=== PATIENT | female | born 1965 ===

== ENCOUNTER 2020-07-07 16:03 | Outpatient (REF) | payer OTHER, SELFPAY ==
[2020-07-07 16:41] LABS: MANUAL DIFF FLAG NO
[2020-07-07 16:45] LABS: Basophils Percent Auto 0.5 % (0-2); Eosinophils Absolute Auto 0.1 X10*3/uL (0.0-0.4); Eosinophils Percent Auto 0.9 % (0-4); Hematocrit 39.4 % (37-47); Hemoglobin 12.7 g/dl (12.0-16.0); Imm Gran Abs Auto 0.01 X10*3/uL (0.00-0.03); Imm Gran Pct Auto 0.2 % (0.0-0.4); Lymphocytes Absolute Auto 3.4 X10*3/uL (1.2-4.9); Lymphocytes Percent Auto 58.3 % (20-40); Mean Corpuscular HGB Conc 32.2 g/dl (31.0-35.0); Mean Corpuscular Hemoglobin 30.1 pg (27.0-33.0); Mean Corpuscular Volume 93.4 fL (80-98); Mean Platelet Volume 9.2 fL (9.4-12.3); Monocytes Absolute Auto 0.4 X10*3/uL (0.1-1.2); Monocytes Percent Auto 6.4 % (2-11); Neutrophils Absolute Auto 1.9 X10*3/uL (2.0-8.3); Neutrophils Percent Auto 33.7 % (45-73); Platelet Count 284 X10*3/uL (160-400); Red Blood Count 4.22 X10*6/uL (4.20-5.50); Red Cell Distribution Width 12.6 % (11.0-16.0); White Blood Count 5.8 X10*3/uL (4.8-10.8)
== END 2020-07-07 16:04 | disposition home or self-care (01) ==
LOC: HO.LAB 16:03
PROVIDERS: PCP Internal Medicine; Visit Provider Internal Medicine
DX: I10 Essential (primary) hypertension (principal); K62.5 Hemorrhage of anus and rectum; Z79.01 Long term (current) use of anticoagulants
CPT/HCPCS: 36415; 85025

== ENCOUNTER → 2020-07-25 16:19 | Outpatient (BNVA) | payer OTHER, SELFPAY | PROVIDERS: PCP Internal Medicine; Referring Provider Internal Medicine; Visit Provider Surgery | DX: K62.5 Hemorrhage of anus and rectum (principal); K64.4 Residual hemorrhoidal skin tags; K64.8 Other hemorrhoids | CPT/HCPCS: 46600 ==

== ENCOUNTER 2020-08-19 07:52 | Outpatient (REF) | payer OTHER, SELFPAY | END 2020-08-19 07:53 | disposition home or self-care (01) | LOC: HO.LAB 07:52 | PROVIDERS: Visit Provider Internal Medicine | DX: Z20.828 Contact with and (suspected) exposure to other viral communicable diseases (principal) | CPT/HCPCS: C9803; U0003 ==

== ENCOUNTER 2020-09-22 07:34 | Outpatient (REF) | payer OTHER, SELFPAY ==
[2020-09-22 08:37] LABS: MANUAL DIFF FLAG NO
[2020-09-22 08:40] LABS: Basophils Percent Auto 0.7 % (0-2); Eosinophils Absolute Auto 0.1 X10*3/uL (0.0-0.4); Hemoglobin 13.2 g/dl (12.0-16.0); Imm Gran Abs Auto 0.01 X10*3/uL (0.00-0.03); Imm Gran Pct Auto 0.2 % (0.0-0.4); Lymphocytes Absolute Auto 3.3 X10*3/uL (1.2-4.9); Lymphocytes Percent Auto 57.5 % (20-40); Mean Corpuscular HGB Conc 32.2 g/dl (31.0-35.0); Mean Corpuscular Hemoglobin 30.3 pg (27.0-33.0); Mean Platelet Volume 9.5 fL (9.4-12.3); Monocytes Absolute Auto 0.3 X10*3/uL (0.1-1.2); Monocytes Percent Auto 5.2 % (2-11); Neutrophils Absolute Auto 2.1 X10*3/uL (2.0-8.3); Neutrophils Percent Auto 35.4 % (45-73); Platelet Count 281 X10*3/uL (160-400); Red Blood Count 4.36 X10*6/uL (4.20-5.50); Red Cell Distribution Width 12.2 % (11.0-16.0); White Blood Count 5.8 X10*3/uL (4.8-10.8)
== END 2020-09-22 07:35 | disposition home or self-care (01) ==
LOC: HO.LAB 07:34
PROVIDERS: PCP Internal Medicine; Visit Provider Internal Medicine
DX: I10 Essential (primary) hypertension (principal); K62.5 Hemorrhage of anus and rectum; Z79.01 Long term (current) use of anticoagulants
CPT/HCPCS: 36415; 85025

== ENCOUNTER 2020-09-27 13:45 | Outpatient (REF) | payer OTHER, SELFPAY | END 2020-09-27 13:46 | disposition home or self-care (01) | LOC: HO.LAB 13:45 | PROVIDERS: Visit Provider Internal Medicine | DX: Z20.828 Contact with and (suspected) exposure to other viral communicable diseases (principal) | CPT/HCPCS: C9803; U0003 ==

== ENCOUNTER → 2020-10-03 08:41 | Outpatient (REF) | payer OTHER, SELFPAY ==
--- NOTE | 2020-10-03 08:30 | CA_ITS ---
Transthoracic Echocardiogram Patient (Last, First, Middle): Marlene Hernandez, Gender: Female Date of : 1965 Age: 55 Procedure Date: 10/03/2020 Procedure Type: Transthoracic Echocardiogram Location: OP Height: 149.86 cm Weight: 68.49 kg BSA: 1.64 m2 Heart Rate: bpm BP: 140 / 88 mmHg Phd Internship: Referring MD: Guillermo Torres MD Symptoms: I48.0 PAF I47.1 PAT Z86.73 HX OF TIA Study Quality: Good ECG Rhythm: Sinus Conclusions: - The left ventricular systolic function is normal. The visually estimated ejection fraction is between 60-65%. - No obvious valvular pathology seen on this study. Findings Left Ventricle Normal left ventricular cavity size. There is mildly increased left ventricular wall thickness. The left ventricular systolic function is normal. The visually estimated ejection fraction is between 60-65%. There is no evidence of regional wall motion abnormalities. Diastolic function is normal for age. Right Ventricle Normal right ventricular cavity size and systolic function. Atria The left atrium is normal in size. The right atrium is normal in size. Aortic Valve There is a normal trileaflet aortic valve. There is no aortic valve stenosis. There is no aortic valve regurgitation. Mitral Valve The mitral valve appears normal. There is trace mitral valve regurgitation. There is no mitral valve stenosis. Pulmonic Valve The pulmonic valve was not well visualized. Tricuspid Valve Normal tricuspid valve structure. There is trace tricuspid valve regurgitation. The pulmonary artery systolic pressure is normal. Great Vessels The aortic annulus, sinuses of valsalva, asc aorta, and aortic arch are normal in size. Venous The inferior vena cava is normal in size and collapses greater than 50% with inspiration. Pericardium/Pleural There is no evidence of pericardial effusion. Prior Study Comparison No significant change compared to prior study dated: 12/10/2016. Recommendations, Care & Conclusions No obvious valvular pathology seen on this study. Measurements 2D Linear Measurements RVIDd: 2.67 RVIDd Index: 1.63 IVSd: 1.17 0.6-0.9/0.6-1.0 cm LVIDd: 4.78 3.9-5.3/4.2-5.9 cm LVIDd Index: 2.91 2.4-3.2/2.2-3.1 cm/m2 LVIDs: 3.23 2.0-3.6 cm LVPWd: 1.00 0.7-1.1 cm Ao Root: 2.60 2.1-3.5 cm LA Diam: 3.70 2.7-3.8/3.0-4.0 cm LAIDs Index: 2.26 1.5-2.3 cm/m2 LV Mass: 235.55 67-162/88-224 g LV Mass Index: 143.63 43-95/49-115 g/m2 LVOT Diam: 2.00 3.0+(-)1.3 cm 2D Systolic Function EF 4C: 63.40 >55% EF 2C: 55.70 >55% EF BiP: 60.00 >55% Mitral Valve MV Pk E: 0.83 MV PK A: 0.53 MV Decel Time: 150.00 E/A: 1.50 E'Lateral: 8.05 E'Medial: 5.98 E/E' Med: 13.80 E/E' Lat: 10.30 Aortic Valve AoV Pk Jeremiah: 1.70 AoV Mn Jeremiah: 1.19 AoV VTI: 0.33 AoV Pk Grad: 12.00 Aov Mn Grad: 6.00 NIRAJ Cont.VTI: 2.21 LVOT LVOT Pk Jeremiah: 1.09 LVOT Mn Jeremiah: 0.78 LVOT VTI: 0.23 LVOT Pk Grad: 5.00 LVOT Mn Grad: 3.00 LVOT Diam: 2.00 LVOT Area: 3.14 Diastolic Function MV Pk E: 0.83 MV Pk A: 0.53 E/A: 1.50 E'Medial: 5.98 E/E' Med: 13.80 E' Laterial: 8.05 E/E' Lat: 10.30 Tricuspid Valve TR Pk Jeremiah: 2.39 TR Pk Grad: 23.00 RA Press: 3.00 RVSP: 26.00 Great Vessels Aorta Ao Root-2D: 2.60 2.0-3.7 cm Ao Asc: 3.40 2.1-3.4 cm Ao Arch: 2.90 Updated in Other Vendor System with Status of Final Guillermo Torres MD electronically signed on 10/03/2020 9:37:37 AM with status of Final
--- NOTE | 2020-10-03 09:30 | ECG_ITS ---
Hook-up date: 2020-10-03 09:28:00 Duration: 27:26:00 Test Indications: PAF Medications: [id number] QRS complexes * Ventricular ectopics which represent % of total QRS comp. 9 Supraventricular ectopics which represent <1 % of total QRS comp. * Paced QRS complexs which represent % of total QRS comp. VENTRICULAR ECTOPY * Isolated * Bigeminal Cycles * Couplets * Runs * Beats in Runs * Beats LONGEST at * BPM at :: -- * Beats FASTEST at * BPM at :: -- SUPRAVENTRICULAR ECTOPY 7 Isolated 1 Couplets 0 Runs 0 Beats in Runs * Beats LONGEST at * BPM at :: -- * Beats FASTEST at * BPM at :: -- HEART RATES 49 MIN at 05:48:36 2020-10-04 74 AVG 107 MAX at 10:52:10 2020-10-03 LONGEST RR 1.3360 secs at 05:25:06 2020-10-04 S-T LEVELS Channel 1 - 128 mm at 09:28:00 2020-10-03 - 128 mm at 09:28:00 2020-10-03 Channel 2 - 128 mm at 09:28:00 2020-10-03 - 128 mm at 09:28:00 2020-10-03 Channel 3 - 128 mm at 02:84:71 -- - 128 mm at 02:84:71 Basic rhythm Normal sinus rhythm No long pause or profound bradycardia No dangerous dysrhythm periods Patient did not report any symptoms in the diary Referred By: Guillermo Torres Overread By: FABIEN FERREIRA MD
== END ==
LOC: HO.CARD 08:41
PROVIDERS: PCP Internal Medicine; Visit Provider Internal Medicine
DX: I48.0 Paroxysmal atrial fibrillation (principal); I47.1 Supraventricular tachycardia; Z86.73 Personal history of transient ischemic attack (TIA), and cerebral infarction without residual deficits
CPT/HCPCS: 93225; 93226; 93306

== ENCOUNTER 2020-10-04 07:03 | Outpatient (REF) | payer OTHER, SELFPAY | END 2020-10-04 07:04 | disposition home or self-care (01) | LOC: HO.LAB 07:03 | PROVIDERS: Visit Provider Internal Medicine | DX: Z20.828 Contact with and (suspected) exposure to other viral communicable diseases (principal) | CPT/HCPCS: 36415; C9803; U0003 ==

== ENCOUNTER 2020-10-14 08:03 | Outpatient (REF) | payer OTHER, SELFPAY | END 2020-10-14 08:04 | disposition home or self-care (01) | LOC: HO.LAB 08:03 | PROVIDERS: Visit Provider Internal Medicine | DX: Z20.822 Contact with and (suspected) exposure to COVID-19 (principal) | CPT/HCPCS: 36415; C9803; U0003 ==

== ENCOUNTER 2020-10-15 09:16 | Outpatient (REF) | payer OTHER, SELFPAY ==
[2020-10-15 10:25] LABS: Alanine Aminotransferase 15 U/L (0-31); Albumin Level 4.3 g/dL (3.5-5.0); Alkaline Phosphatase 89 U/L (39-117); Anion Gap 11 (12-20); Aspartate Amino Transferase 12 U/L (5-31); Bilirubin Total 0.4 mg/dL (0.0-1.0); Blood Urea Nitrogen 12 mg/dL (9-16); Calcium 9.3 mg/dL (8.4-10.2); Carbon Dioxide 29 mmol/L (22-29); Chloride 105 mmol/L (96-108); Cholesterol 186 mg/dL; Estimated Glomerular Filt Rate > 60; Glucose Random 95 mg/dL (60-115); HDL Cholesterol 66 mg/dL; LDL Cholesterol Calculated 106 mg/dl; Potassium 4.3 mmol/l (3.3-5.1); Sodium 141 mmol/L (135-145); Total Protein 7.2 g/dL (6.5-8.0); Triglycerides 73 mg/dL
[2020-10-15 10:45] LABS: Thyroid Stimulating Hormone 1.29 uIU/mL (0.32-4.0)
== END 2020-10-15 09:17 | disposition home or self-care (01) ==
LOC: HO.LAB 09:16
PROVIDERS: PCP Internal Medicine; Visit Provider Internal Medicine
DX: Z00.00 Encounter for general adult medical examination without abnormal findings (principal); E78.00 Pure hypercholesterolemia, unspecified; G44.52 New daily persistent headache (NDPH); H92.01 Otalgia, right ear; I10 Essential (primary) hypertension; Z98.84 Bariatric surgery status
CPT/HCPCS: 36415; 80053; 80061; 84443

== ENCOUNTER 2020-10-19 16:27 | Outpatient (REF) | payer OTHER, SELFPAY ==
--- NOTE | 2020-10-19 16:30 | CT_ITS ---
EXAMINATION: CT HEAD WITHOUT CONTRAST CLINICAL INFORMATION: Headache. Dizziness. Patient on anticoagulation. COMPARISON: CT head 07/23/2019 TECHNIQUE: Contiguous axial imaging was performed from the skull base to vertex without intravenous administration of contrast. This CT examination was performed using dose optimization techniques as appropriate, variously including the following: *Automated exposure control *Adjustment of mA and/or kV according to patient size (this includes techniques or standardized protocols for targeted exams where dose is matched to indication/reason for exam; i.e. extremities or head) *Use of iterative reconstruction technique DLP: 737 mGy-cm FINDINGS: There is no evidence of acute intracranial hemorrhage or territorial infarction. No abnormal mass effect or midline shift is seen. Pete to white matter differentiation is well preserved. No extra-axial fluid collections are identified. The ventricles are normal in size. There is no abnormal attenuation within the brain parenchyma. The osseous structures and soft tissues are normal. The mastoid air cells and visualized portions of the paranasal sinuses are well aerated. CT/CT head/brain wo con IMPRESSION: No acute intracranial pathology.
== END 2020-10-19 16:28 | disposition home or self-care (01) ==
LOC: HO.CT 16:27
PROVIDERS: Visit Provider Internal Medicine
DX: R51.9 Headache, unspecified (principal); R42 Dizziness and giddiness
CPT/HCPCS: 70450

== ENCOUNTER 2020-10-22 09:15 | Outpatient (REF) | payer OTHER, SELFPAY | END 2020-10-22 09:16 | disposition home or self-care (01) | LOC: HO.LAB 09:15 | PROVIDERS: PCP Internal Medicine; Visit Provider Internal Medicine | DX: Z20.822 Contact with and (suspected) exposure to COVID-19 (principal) | CPT/HCPCS: 36415; C9803; U0003 ==

== ENCOUNTER → 2020-10-27 15:26 | Outpatient (BNVA) | payer OTHER, SELFPAY | PROVIDERS: PCP Internal Medicine; Visit Provider Internal Medicine | DX: I48.0 Paroxysmal atrial fibrillation (principal); I47.1 Supraventricular tachycardia; I10 Essential (primary) hypertension; G45.9 Transient cerebral ischemic attack, unspecified | CPT/HCPCS: 93005 ==

== ENCOUNTER 2020-11-01 08:44 | Outpatient (REF) | payer OTHER, SELFPAY | END 2020-11-01 08:45 | disposition home or self-care (01) | LOC: HO.LAB 08:44 | PROVIDERS: Visit Provider Internal Medicine | DX: Z20.822 Contact with and (suspected) exposure to COVID-19 (principal) | CPT/HCPCS: 36415; C9803; U0003; U0005 ==

== ENCOUNTER 2020-11-12 09:11 | Outpatient (REF) | payer OTHER, SELFPAY | END 2020-11-12 09:12 | disposition home or self-care (01) | LOC: HO.LAB 09:11 | PROVIDERS: Visit Provider Internal Medicine | DX: Z20.822 Contact with and (suspected) exposure to COVID-19 (principal) | CPT/HCPCS: 36415; C9803; U0003; U0005 ==

== ENCOUNTER 2020-11-14 08:07 | Outpatient (REF) | payer OTHER, SELFPAY ==
--- NOTE | ~2020-11-14 | MM_ITS ---
EXAMINATION: MM DIAGNOSTIC DIGITAL BREAST TOMOSYNTHESIS, BILATERAL US DIAGNOSTIC ULTRASOUND BREAST, LEFT CLINICAL INFORMATION: Due for yearly. Patient notes pea-sized palpable lesion posterior 11:00 position. The lifetime risk of breast cancer based on the Tyrer-Cuzick Model is 8%. COMPARISON: Mammography: 10/05/2019, 09/26/2018, 09/09/2017, 07/31/2016 TECHNIQUE: Digital breast tomosynthesis is performed in both the craniocaudal and mediolateral oblique views along with computer-aided detection (CAD). Synthesized 2D images are generated from the tomosynthesis. Ultrasound left breast is targeted to the area of clinical concern. Patient is able to point to the area of concern at time of imaging. Grayscale imaging and color Doppler are performed without and with harmonics. FINDINGS: There are scattered areas of fibroglandular density (ACR BI-RADS breast composition Category b). There are no significant masses, abnormal calcifications, or other abnormalities. Parenchymal pattern is similar to prior exams. There is no developing density. No skin thickening or retraction. Ultrasound left breast is targeted to the area of clinical concern shows no cystic or solid mass or architectural abnormality. There is no skin thickening or edema tracking in soft tissue planes. Results are discussed with the patient at time of visit. Patient should be managed based on the clinical impression. If clinically indicated, further evaluation may be considered with surgical consult. Decision to proceed with biopsy should be based on clinical grounds and degree of clinical concern. MM/MM tomosynthesis diagnostic BI IMPRESSION: 1. No mammographic evidence of malignancy. 2. Unremarkable targeted left breast ultrasound. 3. No imaging correlate for patient's palpable concern left breast. ASSESSMENT: BI-RADS 1: Negative RECOMMENDATION: 1. Patient should be managed based on the clinical impression. If clinically indicated, further evaluation may be considered with surgical consult. Decision to proceed with biopsy should be based on clinical grounds and degree of clinical concern. 2. Otherwise, routine annual screening mammography. This patient's information was entered into a reminder system with a target due date for their next mammogram.
== END 2020-11-14 08:08 | disposition home or self-care (01) ==
LOC: HO.MAMMO 08:07
PROVIDERS: Visit Provider Advanced Practice Midwife
DX: N63.22 Unspecified lump in the left breast, upper inner quadrant (principal)
CPT/HCPCS: 76642; 77062; 77066

== ENCOUNTER 2020-11-16 11:38 | Outpatient (REF) | payer OTHER, SELFPAY | END 2020-11-16 11:39 | disposition home or self-care (01) | LOC: HO.LAB 11:38 | PROVIDERS: PCP Internal Medicine; Visit Provider Internal Medicine | DX: Z20.822 Contact with and (suspected) exposure to COVID-19 (principal) | CPT/HCPCS: 36415; C9803; U0003; U0005 ==

== ENCOUNTER 2020-11-18 07:44 | Emergency (ER) | payer OTHER, SELFPAY ==
--- NOTE | ~2020-11-18 | XR_ITS ---
EXAMINATION: XR CHEST CLINICAL INFORMATION: Shortness of breath, cough COMPARISON: Chest radiographs 10/17/2017, 12/10/2016 TECHNIQUE: Portable upright AP view of the chest was obtained. FINDINGS: The lungs are clear. There is no airspace consolidation or groundglass opacity. The costophrenic sulci are clear. The heart is normal in size and the hilar and mediastinal contours are unremarkable. There is some calcific tendinosis in region of left infraspinatus or teres minor minor rotator cuff. XR/XR chest 1V IMPRESSION: 1. Lungs clear. 2. Calcific tendinosis left rotator cuff.
[2020-11-18 08:16] VITALS: BP 167/94; PULSE 98; RESP 18; TEMP 36.9; O2SAT 100; BMI 30.4
--- NOTE | 2020-11-18 08:34 | ECG_ITS ---
Test Reason : DIFFICULT BREATHING Blood Pressure : / mmHG Vent. Rate : 096 BPM Atrial Rate : 096 BPM P-R Int : 144 ms QRS Dur : 080 ms QT Int : 354 ms P-R-T Axes : 034 -02 -02 degrees QTc Int : 447 ms Normal sinus rhythm Minimal voltage criteria for LVH, may be normal variant Borderline ECG When compared with ECG of 10-FEB-2018 07:59, No significant change was found Referred By: Keturah Patrick Electronically Signed By:Mani Garcia
--- NOTE | 2020-11-18 08:37 | ED.GENADULT ---
HPI - General Adult General Chief complaint: General Medical Stated complaint: FEVER COUGH Time Seen by Provider: 11/18/20 08:26 Source: patient Mode of arrival: ambulatory Limitations: no limitations History of Present Illness HPI narrative: 55-year-old female with a past medical history of AFib on Cardizem and Xarelto, asthma, hypertension, diabetes, obesity here with complaints of cough with white sputum, shortness of breath with exertion, malaise, headache and fever with a max temp of 101 degrees today. Patient is also complaining some chest pain which is worsened with deep breathing and coughing. No leg pain or swelling. She tells me that she was exposed to a family member who is COVID positive on 11/08. She went to get tested the next day and found out this morning that she is COVID positive. She has not had any symptoms until today. Related Data Home Medications Medication Instructions Recorded Confirmed atorvastatin 20 mg tablet 20 mg PO BEDTIME 07/25/20 10/27/20 clobetasol 0.05 % topical ointment g TOPICAL BID 07/25/20 10/27/20 multivitamin 1 tab PO DAILY 07/25/20 10/27/20 diltiazem HCl 240 mg 240 mg PO DAILY 10/27/20 10/27/20 capsule,extended release 24 hr, controlled rivaroxaban 20 mg tablet 20 mg PO DAILY 10/27/20 10/27/20 Previous Rx's Medication Instructions Recorded lisinopril 10 mg tablet 10 mg PO DAILY #30 tab 10/27/20 Allergies Allergy/AdvReac Type Severity Reaction Status Date / Time amoxicillin [AMOXICILLIN] Allergy Intermediate RASH Verified 10/27/20 15:32 Review of Systems Review of Systems: Yes all other systems are reviewed and are negative Constitutional: Constitutional: Reports no additional constitutional complaints, Denies body ache(s), Denies chills, Reports fever(s), Denies headache(s), Reports malaise and Denies weakness Eyes: Eyes: Reports no additional eye complaints and Denies change in vision ENT: Reports system reviewed and no additional complaints, except as documented, Denies dizziness, Denies headache(s), Denies nasal congestion, Denies nasal discharge and Denies neck pain Cardiovascular: Cardiovascular: Reports no additional cardiovascular complaints, Reports chest pain, Denies leg edema and Reports dyspnea Respiratory: Respiratory: Reports no additional respiratory complaints, Reports cough and Reports dyspnea Gastrointestinal: Gastrointestinal: Reports no additional gastrointestinal complaints, Denies abdominal pain, Denies diarrhea, Denies nausea and Denies vomiting Genitourinary: Genitourinary: Reports no additional female genitourinary complaints and Denies urinary incontinence Musculoskeletal: Musculoskeletal: Reports no additional musculoskeletal complaints, Denies back pain, Denies arthralgias, Denies joint swelling, Denies neck pain, Denies numbness and Denies tingling Integumentary/Breasts: Skin/Breast: Reports system reviewed and no additional complaints, except as docu and Denies rash Neurologic: Reports system reviewed and no additional complaints, except as documented, Denies Abnormal speech present, Denies dizziness, Denies headache(s), Denies numbness, Denies tingling and Denies weakness PMFSH Past Medical History Attestation statement: The following information was validated with the patient. Source: old records reviewed and nursing notes reviewed Medical History Asthma Diabetes mellitus Essential hypertension Hypertension Internal and external bleeding hemorrhoids Morbid obesity PAF (paroxysmal atrial fibrillation) PAT (paroxysmal atrial tachycardia) TIA (transient ischemic attack) Surgical History History of abdominoplasty (~2006) History of bilateral breast reduction surgery (~2005) History of hysterectomy (~12/2014) History of removal of laparoscopic gastric banding device (~12/2018) History of tubal ligation Hx of laparoscopic gastric banding (~2010) Family History Family History Maternal Aunt History of colon cancer Paternal Aunt History of breast cancer Social History Social History Alcohol intake: never Smoking Status: Never smoker Advance Directives: No Advance Directives Information Provided: No Physical Exam Vital Signs: Vital Signs: Last Vital Signs Temp 98.7 F 11/18/20 10:08 Pulse 91 11/18/20 10:08 Resp 16 11/18/20 10:08 BP 152/94 H 11/18/20 10:08 Pulse Ox 97 11/18/20 10:08 Body Mass Index 30.4 Const: General: cooperative, healthy appearing, comfortable and no acute distress Orientation/consciousness: patient oriented x3 Limitations: no limitations HENMT: Head: Yes normal to inspection Ears: hearing grossly normal bilaterally General nose exam: Normal external nose present Face and sinus: Yes normal facial exam Mouth: Normal oral and palatal mucosa present Throat: Yes posterior oropharynx normal Eyes: General: appearance normal, both eyes and all related structures Pupils: Equal, round and reactive pupils present Neck: Neck: Yes normal visual inspection Chest: Chest palpation & inspection: normal inspection of the chest Resp: Effort & Inspection: normal respiratory effort Auscultation: clear to auscultation bilaterally Cardio: Rate: regular rate Rhythm: regular rhythm Peripheral pulses: Peripheral pulses 2+ throughout GI: Inspection: Yes normal to inspection Palpation (GI): Soft to palpation and nontender Auscultation: normal bowel sounds Back/Spine/Pelvis: Thoracic/Lumbar Spine: thoracic and lumbar spine normal to inspection Skin: General skin exam: no rashes or lesions noted Neuro: General: patient oriented x3, no focal motor deficits and normal sensation to monofilament Cranial nerves: Yes Equal, round and reactive pupils present Cognition (Neuro): normal cognition Speech: No Abnormal speech present Gait exam (Neuro): Normal gait present Motor exam (neuro): 5/5 motor strength present throughout Extrem: General: Yes normal to inspection, Yes no pedal edema and Yes no calf tenderness Course Course Course Narrative: 55 yo female known COVID + here with fever, cough with white sputum, MELGAR, COREAS and reproducible chest discomfort since waking. On arrival patient appears well. Speaking full sentences. Lung sounds are clear throughout. Vital signs are stable. Will check EKG, CXR, labs. APAP for discomfort. 0930-labs unremarkable. Chest x-ray shows no acute finding. EKG shows no changes and patient is in normal sinus rhythm. She ambulated in the emergency department with oxygen saturation greater than 99%. Plan for discharge home. Reviewed worrisome signs and symptoms with the patient and when to return to the emergency department. Comfortable with discharge home. Medical Decision Making [facility] Narrative Medical decision making narrative: PNA, MS chest wall pain, PE, viral syndrome Less likely pneumonia with negative chest x-ray Less likely PE with PERC score 0 Medical Records Medical records reviewed: Yes I reviewed the patient's medical records. Lab Data Lab results reviewed: Yes I reviewed the patient's lab results. Result diagrams: 11/18/20 08:50 11/18/20 08:50 Labs: Lab Results 11/18/20 11/18/20 11/18/20 Range/Units 08:50 08:50 08:50 WBC 4.3 L (4.8-10.8) X10*3/uL RBC 4.59 (4.20-5.50) X10*6/uL Hgb 13.9 (12.0-16.0) g/dl Hct 41.7 (37-47) % MCV 90.8 (80-98) fL MCH 30.3 (27.0-33.0) pg MCHC 33.3 (31.0-35.0) g/dl RDW 12.8 (11.0-16.0) % Plt Count 279 (160-400) X10*3/uL MPV 8.6 L (9.4-12.3) fL Immature Gran % (Auto) 0.2 (0.0-0.4) % Neut % (Auto) 58.9 (45-73) % Lymph % (Auto) 24.7 (20-40) % Monroe % (Auto) 16.0 H (2-11) % Eos % (Auto) 0.0 (0-4) % Baso % (Auto) 0.2 (0-2) % Lymph # (Auto) 1.1 L (1.2-4.9) X10*3/uL Monroe # (Auto) 0.7 (0.1-1.2) X10*3/uL Eos # (Auto) 0.0 (0.0-0.4) X10*3/uL Baso # (Auto) 0.0 (0.0-0.2) X10*3/uL Abs Immat Gran (auto) 0.01 (0.00-0.03) X10*3/uL Absolute Neuts (auto) 2.5 (2.0-8.3) X10*3/uL Absolute Nucleated RBC 0.000 (0.0-0.012) X10*3/uL Nucleated RBC % (auto) 0.0 (0.0-0.2) /100WBC PT 14.4 H (10.8-13.0) SEC INR 1.2 H (0.9-1.1) Sodium 139 (135-145) mmol/L Potassium 4.1 (3.3-5.1) mmol/L Chloride 105 (96-108) mmol/L Carbon Dioxide 26 (22-29) mmol/L Anion Gap 12 (12-20) BUN 8 L (9-16) mg/dL Creatinine 0.89 (0.5-1.4) mg/dL Estim Creat Clear Calc 60.8 Estimated GFR > 60 Random Glucose 104 (60-115) mg/dL Calcium 9.4 (8.4-10.2) mg/dL Total Bilirubin 0.5 (0.0-1.0) mg/dL Direct Bilirubin 0.2 (0.0-0.5) mg/dL AST 18 D (5-31) U/L ALT 20 (0-31) U/L Alkaline Phosphatase 107 D (39-117) U/L Troponin I High Sens (<3.5-17.0) ng/L Total Protein 7.7 (6.5-8.0) g/dL Albumin 4.4 (3.5-5.0) g/dL 11/18/20 Range/Units 08:50 WBC (4.8-10.8) X10*3/uL RBC (4.20-5.50) X10*6/uL Hgb (12.0-16.0) g/dl Hct (37-47) % MCV (80-98) fL MCH (27.0-33.0) pg MCHC (31.0-35.0) g/dl RDW (11.0-16.0) % Plt Count (160-400) X10*3/uL MPV (9.4-12.3) fL Immature Gran % (Auto) (0.0-0.4) % Neut % (Auto) (45-73) % Lymph % (Auto) (20-40) % Monroe % (Auto) (2-11) % Eos % (Auto) (0-4) % Baso % (Auto) (0-2) % Lymph # (Auto) (1.2-4.9) X10*3/uL Monroe # (Auto) (0.1-1.2) X10*3/uL Eos # (Auto) (0.0-0.4) X10*3/uL Baso # (Auto) (0.0-0.2) X10*3/uL Abs Immat Gran (auto) (0.00-0.03) X10*3/uL Absolute Neuts (auto) (2.0-8.3) X10*3/uL Absolute Nucleated RBC (0.0-0.012) X10*3/uL Nucleated RBC % (auto) (0.0-0.2) /100WBC PT (10.8-13.0) SEC INR (0.9-1.1) Sodium (135-145) mmol/L Potassium (3.3-5.1) mmol/L Chloride (96-108) mmol/L Carbon Dioxide (22-29) mmol/L Anion Gap (12-20) BUN (9-16) mg/dL Creatinine (0.5-1.4) mg/dL Estim Creat Clear Calc Estimated GFR Random Glucose (60-115) mg/dL Calcium (8.4-10.2) mg/dL Total Bilirubin (0.0-1.0) mg/dL Direct Bilirubin (0.0-0.5) mg/dL AST (5-31) U/L ALT (0-31) U/L Alkaline Phosphatase (39-117) U/L Troponin I High Sens < 3.5 (<3.5-17.0) ng/L Total Protein (6.5-8.0) g/dL Albumin (3.5-5.0) g/dL Imaging Data Chest x-ray: Attestation: I personally reviewed and interpreted this imaging study as follows: Radiologist's impression: EXAMINATION: XR CHEST CLINICAL INFORMATION: Shortness of breath, cough COMPARISON: Chest radiographs 10/17/2017, 12/10/2016 TECHNIQUE: Portable upright AP view of the chest was obtained. FINDINGS: The lungs are clear. There is no airspace consolidation or groundglass opacity. The costophrenic sulci are clear. The heart is normal in size and the hilar and mediastinal contours are unremarkable. There is some calcific tendinosis in region of left infraspinatus or teres minor minor rotator cuff. XR/XR chest 1V IMPRESSION: 1. Lungs clear. 2. Calcific tendinosis left rotator cuff. ECG Data Attestation: I personally reviewed and interpreted this ECG as follows: Interpretation: NSR with rate 96, normal pr, normal qrs, normal qtc Discharge Plan Discharge Clinical Impression: COVID-19 Patient Disposition: Home, Self-Care Instructions: COVID-19 (Coronavirus Disease 2019) (ED) Additional Instructions: You need to quarantine for 10 days and be symptom free for greater than 24 hours before leaving isolation. Take Tylenol for fever as needed Increase fluids, rest Consider buying a pulse oximeter and monitoring oxygen saturations and returning for pulse oximeter <90% Return for worsening shortness of breath, severe chest pain, fever not relieved with Tylenol Prescriptions: No Action atorvastatin 20 mg tablet 20 mg PO BEDTIME RF: 0 clobetasol 0.05 % ointment topical BID RF: 0 multivitamin Tablet 1 tab PO DAILY RF: 0 Xarelto 20 mg tablet 20 mg PO DAILY RF: 0 diltiazem HCl 240 mg capsule,ext.rel 24h degradable 240 mg PO DAILY RF: 0 lisinopril 10 mg tablet 10 mg PO DAILY Qty: 30 RF: 5 Referrals: Monique Dill MD [Primary Care Provider] - 2 days Interventions: ED Discharge Assessment Last Done: 11/18/20 10:10 Discharge Date/Time: 11/18/20 10:11
[2020-11-18] MEDS: Acetaminophen 325 MG TABLET 975 MG PO (08:44)
[2020-11-18 08:55] LABS: MANUAL DIFF FLAG NO
[2020-11-18 08:57] LABS: Basophils Percent Auto 0.2 % (0-2); Hematocrit 41.7 % (37-47); Hemoglobin 13.9 g/dl (12.0-16.0); Imm Gran Abs Auto 0.01 X10*3/uL (0.00-0.03); Imm Gran Pct Auto 0.2 % (0.0-0.4); Lymphocytes Absolute Auto 1.1 X10*3/uL (1.2-4.9); Lymphocytes Percent Auto 24.7 % (20-40); Mean Corpuscular HGB Conc 33.3 g/dl (31.0-35.0); Mean Corpuscular Hemoglobin 30.3 pg (27.0-33.0); Mean Corpuscular Volume 90.8 fL (80-98); Mean Platelet Volume 8.6 fL (9.4-12.3); Monocytes Absolute Auto 0.7 X10*3/uL (0.1-1.2); Neutrophils Absolute Auto 2.5 X10*3/uL (2.0-8.3); Neutrophils Percent Auto 58.9 % (45-73); Platelet Count 279 X10*3/uL (160-400); Red Blood Count 4.59 X10*6/uL (4.20-5.50); Red Cell Distribution Width 12.8 % (11.0-16.0); White Blood Count 4.3 X10*3/uL (4.8-10.8)
[2020-11-18 09:02] LABS: INTERNATIONAL NORM RATIO 1.2 (0.9-1.1); Prothrombin Time 14.4 SEC (10.8-13.0)
[2020-11-18 09:27] LABS: Alanine Aminotransferase 20 U/L (0-31); Albumin Level 4.4 g/dL (3.5-5.0); Alkaline Phosphatase 107 U/L (39-117); Anion Gap 12 (12-20); Aspartate Amino Transferase 18 U/L (5-31); Bilirubin Direct 0.2 mg/dL (0.0-0.5); Bilirubin Total 0.5 mg/dL (0.0-1.0); Blood Urea Nitrogen 8 mg/dL (9-16); Calcium 9.4 mg/dL (8.4-10.2); Carbon Dioxide 26 mmol/L (22-29); Chloride 105 mmol/L (96-108); Creatinine Clr Calc Pharmacy 60.8; Estimated Glomerular Filt Rate > 60; Glucose Random 104 mg/dL (60-115); Potassium 4.1 mmol/L (3.3-5.1); Sodium 139 mmol/L (135-145); Total Protein 7.7 g/dL (6.5-8.0)
[2020-11-18 09:31] LABS: Troponin-I High Sensitivity < 3.5 ng/L (<3.5-17.0)
--- NOTE | 2020-11-18 09:50 | PC.NURSE ---
Pt ambulation trial. pt remained at or above 96% O2 during ambulation.
[2020-11-18 10:08] VITALS: BP 152/94; PULSE 91; RESP 16; TEMP 37.1; O2SAT 97
== END 2020-11-18 10:11 | disposition home or self-care (01) ==
PROVIDERS: Nurse Practitioner Family; Emergency Provider Emergency Medicine; PCP Internal Medicine
DX: U07.1 COVID-19 (principal); R50.9 Fever, unspecified; R05 Cough; I48.91 Unspecified atrial fibrillation; Z79.01 Long term (current) use of anticoagulants; Z79.899 Other long term (current) drug therapy
CPT/HCPCS: 36415; 71045; 80048; 80076; 84484; 85025; 85610; 93005; 99283

== ENCOUNTER → 2020-12-05 15:12 | Outpatient (BNVA) | payer OTHER, SELFPAY | PROVIDERS: PCP Internal Medicine; Visit Provider Nurse Practitioner Family ==

== ENCOUNTER 2020-12-23 15:14 | Outpatient (REF) | payer OTHER, SELFPAY | END 2020-12-23 15:15 | disposition home or self-care (01) | LOC: HO.LAB 15:14 | PROVIDERS: Visit Provider Internal Medicine | DX: Z20.822 Contact with and (suspected) exposure to COVID-19 (principal) | CPT/HCPCS: 36415; C9803; U0003; U0005 ==

== ENCOUNTER 2020-12-29 15:08 | Outpatient (REF) | payer OTHER, SELFPAY ==
[2020-12-30 13:27] LABS: SARS COV2 PCR INHOUSE NEGATIVE (Negative)
== END 2020-12-29 15:09 | disposition home or self-care (01) ==
LOC: HO.LAB 15:08
PROVIDERS: Visit Provider Internal Medicine
DX: Z20.822 Contact with and (suspected) exposure to COVID-19 (principal)
CPT/HCPCS: C9803; U0003

== ENCOUNTER 2021-01-06 11:31 | Outpatient (REF) | payer OTHER, SELFPAY ==
[2021-01-06 13:19] LABS: COVID-19 Test Negative (Negative)
== END 2021-01-06 11:32 | disposition home or self-care (01) ==
LOC: HO.LAB 11:31
PROVIDERS: Visit Provider Internal Medicine
DX: Z20.822 Contact with and (suspected) exposure to COVID-19 (principal)
CPT/HCPCS: 36415; 87635; C9803

== ENCOUNTER 2021-01-13 15:13 | Outpatient (REF) | payer OTHER, SELFPAY ==
[2021-01-13 15:57] LABS: COVID-19 Test Negative (Negative); IDNOW Serial# 55D5AD1C
== END 2021-01-13 15:14 | disposition home or self-care (01) ==
LOC: HO.LAB 15:13
PROVIDERS: Visit Provider Internal Medicine
DX: Z20.822 Contact with and (suspected) exposure to COVID-19 (principal)
CPT/HCPCS: 36415; 87635; C9803

== ENCOUNTER 2021-01-27 08:41 | Outpatient (REF) | payer OTHER, SELFPAY ==
[2021-01-27 08:58] LABS: COVID-19 Test Negative (Negative)
== END 2021-01-27 08:42 | disposition home or self-care (01) ==
LOC: HO.LAB 08:41
PROVIDERS: Visit Provider Internal Medicine
DX: Z20.822 Contact with and (suspected) exposure to COVID-19 (principal)
CPT/HCPCS: 36415; 87635; C9803

== ENCOUNTER 2021-02-08 15:44 | Outpatient (REF) | payer OTHER, SELFPAY | END 2021-02-08 15:45 | disposition home or self-care (01) | LOC: HO.LAB 15:44 | PROVIDERS: Visit Provider Internal Medicine | DX: Z20.822 Contact with and (suspected) exposure to COVID-19 (principal) | CPT/HCPCS: C9803; U0003; U0005 ==

== ENCOUNTER 2021-02-16 14:19 | Outpatient (REF) | payer OTHER, SELFPAY ==
[2021-02-16 15:04] LABS: COVID-19 Test Negative (Negative)
== END 2021-02-16 14:20 | disposition home or self-care (01) ==
LOC: HO.LAB 14:19
PROVIDERS: Visit Provider Internal Medicine
DX: Z20.822 Contact with and (suspected) exposure to COVID-19 (principal)
CPT/HCPCS: 36415; 87635; C9803

== ENCOUNTER 2021-03-15 15:31 | Emergency (ER) | payer OTHER, SELFPAY ==
--- NOTE | ~2021-03-15 | US_ITS ---
EXAMINATION: US VENOUS ULTRASOUND WITH DOPPLER LOWER EXTREMITY, LEFT CLINICAL INFORMATION: Left lower extremity pain COMPARISON: None TECHNIQUE: Ultrasound of the deep veins is performed from the hip to the calf with compression sonography and color and pulse Doppler assessment. Spectral analysis with color-flow imaging is performed. FINDINGS: There is normal venous compression and respiratory variation and augmented flow. The visualized common femoral vein, superficial femoral vein, profunda femoral vein, popliteal vein, and the trifurcation region shows no evidence of deep venous thrombosis. There is no significant popliteal fossa cyst. If the patient's symptoms persist, followup ultrasound in 5 days 7 days might be of value to exclude proximal propagation from a non-visualized calf vein. US/US venous duplex LE LT IMPRESSION: No DVT demonstrated in the left lower extremity.
[2021-03-15 15:33] VITALS: BP 117/65; PULSE 63; RESP 16; TEMP 36.1; O2SAT 100; BMI 31.5
--- NOTE | 2021-03-15 16:46 | ED.EXTPRO ---
HPI - Extremity Problem General Chief complaint: Extremity Problem Stated complaint: dvt? Time Seen by Provider: 03/15/21 15:33 Source: patient Mode of arrival: ambulatory Limitations: no limitations History of Present Illness HPI Narrative: Patient presents to the ED area of erythema on left calf that is itchy and tender for the past 3 days. Patient denies any recent bug bite or trauma to right lower extremities. Patient denies any chest pain or shortness of breath Related Data Home Medications Medication Instructions Recorded Confirmed atorvastatin 20 mg tablet 20 mg PO BEDTIME 07/25/20 12/05/20 clobetasol 0.05 % topical ointment g TOPICAL BID 07/25/20 12/05/20 multivitamin 1 tab PO DAILY 07/25/20 12/05/20 diltiazem HCl 240 mg 240 mg PO DAILY 10/27/20 12/05/20 capsule,extended release 24 hr, controlled Previous Rx's Medication Instructions Recorded lisinopril 10 mg tablet 10 mg PO DAILY #30 tab 10/27/20 rivaroxaban 20 mg tablet 20 mg PO DAILY #90 tab 12/20/20 clindamycin HCl 300 mg PO Q8H 7 Days #21 cap 03/15/21 hydrocortisone 1 appl TOPICAL BID PRN #59.2 ml 03/15/21 Allergies Allergy/AdvReac Type Severity Reaction Status Date / Time amoxicillin [AMOXICILLIN] Allergy Intermediate RASH Verified 03/15/21 15:37 Review of Systems Review of Systems: Yes all other systems are reviewed and are negative Constitutional: Constitutional: Reports as per HPI and Reports no additional constitutional complaints Eyes: Eyes: Reports as per HPI and Reports no additional eye complaints ENT: Reports system reviewed and no additional complaints, except as documented and Reports as per HPI Cardiovascular: Cardiovascular: Reports as per HPI and Reports no additional cardiovascular complaints Respiratory: Respiratory: Reports as per HPI and Reports no additional respiratory complaints Gastrointestinal: Gastrointestinal: Reports as per HPI and Reports no additional gastrointestinal complaints Genitourinary: Genitourinary: Reports no additional female genitourinary complaints and Reports as per HPI Musculoskeletal: Musculoskeletal: Reports no additional musculoskeletal complaints and Reports as per HPI Comments: Itchy erythematous/painful rash on left calf with calf pain Neurologic: Reports system reviewed and no additional complaints, except as documented and Reports as per HPI [facility] Past Medical History Medical History Asthma Diabetes mellitus Essential hypertension Hypertension Internal and external bleeding hemorrhoids Morbid obesity PAF (paroxysmal atrial fibrillation) PAT (paroxysmal atrial tachycardia) TIA (transient ischemic attack) Surgical History History of abdominoplasty (~2006) History of bilateral breast reduction surgery (~2005) History of hysterectomy (~12/2014) History of removal of laparoscopic gastric banding device (~12/2018) History of tubal ligation Hx of laparoscopic gastric banding (~2010) Family History Family History Maternal Aunt History of colon cancer Paternal Aunt History of breast cancer Social History Social History Alcohol intake: never Advance Directives: No Advance Directives Information Provided: Yes Patient : No Physical Exam Vital Signs: Vital Signs: Last Vital Signs Temp 97 F 03/15/21 15:33 Pulse 63 03/15/21 15:33 Resp 16 03/15/21 15:33 BP 117/65 03/15/21 15:33 Pulse Ox 100 03/15/21 15:33 Body Mass Index 31.5 Const: General: cooperative, healthy appearing, comfortable, no acute distress, well developed, alert and awake Orientation/consciousness: patient oriented x3 HENMT: Head: Yes normal to inspection, Yes No palpable skull fracture present, Yes normocephalic and Yes atraumatic Eyes: General: appearance normal, both eyes and all related structures Neck: Neck: Yes normal visual inspection, Yes full ROM, Yes no lymphadenopathy, Yes no meningeal signs, Yes trachea midline, Yes supple and No tender Chest: Chest palpation & inspection: normal inspection of the chest and normal palpation of entire chest wall Breast/axilla inspection: normal inspection of the breasts Resp: Effort & Inspection: normal respiratory effort and able to speak in complete sentences Auscultation: clear to auscultation bilaterally Cardio: Jugular venous distension: no JVD Heart sounds: S1 normal heart sound present and S2 normal heart sound present GI: Inspection: Yes normal to inspection and No abdominal wall ecchymosis Palpation (GI): Soft to palpation, not firm, nontender, no guarding and not rigid : General: No CVA tenderness and Yes no CVA tenderness Back/Spine/Pelvis: Back: no CVA tenderness, No CVA tenderness and No back tenderness Skin: General skin exam: no rashes or lesions noted and elasticity normal Neuro: General: patient oriented x3, gait normal, no meningeal signs and CN's II-XI intact bilaterally Cranial nerves: Yes CN's II-XII intact bilaterally Extrem: General: Yes normal to inspection and Yes full ROM Knee images: 1. Area of erythema ( calf) that is tender to palpation. Patient states it is also itchy. Leg is not swollen. Negative for any fluctuance. Vascular/motor/neuro exam is intact Psych: Appearance: grossly normal, well kempt and not disheveled Course Course Course Narrative: Most likely patient having local contact dermatitis versus mild cellulitis. Will send for ultrasound to rule out blood clot.. Reevaluation(s) Reevaluation #1: Ultrasound negative for DVT. Patient discharged with hydrocortisone and Keflex Time: 17:44 MDM - Extremity (Nontraumatic) MDM Narrative Medical decision making narrative: Contact dermatitis versus cellulitis Discharge Plan Discharge Clinical Impression: Contact dermatitis, Cellulitis Patient Disposition: Home, Self-Care Instructions: Cellulitis (ED), Dermatitis (ED) Additional Instructions: Your ultrasound came back negative for DVT. Return to the ED immediately for worsening redness, swelling of leg/calf, red streaks, fever, chills, chest pain, shortness of breath, or any other concerning symptoms. Prescriptions: New clindamycin HCl 300 mg capsule 300 mg PO Q8H 7 Days Qty: 21 RF: 0 hydrocortisone 2 % lotion 1 appl topical BID PRN (Reason: dermamtits) Qty: 59.2 RF: 0 No Action rivaroxaban [Xarelto] 20 mg tablet 20 mg PO DAILY Qty: 90 RF: 2 atorvastatin 20 mg tablet 20 mg PO BEDTIME RF: 0 clobetasol 0.05 % ointment topical BID RF: 0 multivitamin Tablet 1 tab PO DAILY RF: 0 diltiazem HCl 240 mg capsule,ext.rel 24h degradable 240 mg PO DAILY RF: 0 lisinopril 10 mg tablet 10 mg PO DAILY Qty: 30 RF: 5 Referrals: Monique Dill MD [Primary Care Provider] - 2 days (Contact dermatitis versus cellulitis. Ultrasound negative for DVT) Print Language: Slovenian
--- NOTE | 2021-03-15 16:56 | PC.NURSE ---
us tech at bedside for exam
== END 2021-03-15 18:07 | disposition home or self-care (01) ==
PROVIDERS: Emergency Provider Emergency Medicine Emergency Medical Services; PCP Internal Medicine
DX: L25.9 Unspecified contact dermatitis, unspecified cause (principal); L03.116 Cellulitis of left lower limb; M79.605 Pain in left leg; E11.9 Type 2 diabetes mellitus without complications; I10 Essential (primary) hypertension; I48.0 Paroxysmal atrial fibrillation; Z86.73 Personal history of transient ischemic attack (TIA), and cerebral infarction without residual deficits; Z79.01 Long term (current) use of anticoagulants; Z79.899 Other long term (current) drug therapy
CPT/HCPCS: 93971; 99283; 99284

== ENCOUNTER 2021-03-22 16:46 | Outpatient (REF) | payer OTHER, SELFPAY ==
[2021-03-22 17:43] LABS: MANUAL DIFF FLAG NO
[2021-03-22 17:56] LABS: Basophils Percent Auto 0.7 % (0-2); Eosinophils Absolute Auto 0.2 X10*3/uL (0.0-0.4); Eosinophils Percent Auto 2.7 % (0-4); Hemoglobin 13.6 g/dl (12.0-16.0); Imm Gran Abs Auto 0.01 X10*3/uL (0.00-0.03); Imm Gran Pct Auto 0.2 % (0.0-0.4); Lymphocytes Absolute Auto 3.1 X10*3/uL (1.2-4.9); Lymphocytes Percent Auto 52.6 % (20-40); Mean Corpuscular HGB Conc 32.4 g/dl (31.0-35.0); Mean Corpuscular Hemoglobin 30.6 pg (27.0-33.0); Mean Corpuscular Volume 94.6 fL (80-98); Mean Platelet Volume 9.4 fL (9.4-12.3); Monocytes Absolute Auto 0.4 X10*3/uL (0.1-1.2); Monocytes Percent Auto 7.2 % (2-11); Neutrophils Absolute Auto 2.1 X10*3/uL (2.0-8.3); Neutrophils Percent Auto 36.6 % (45-73); Platelet Count 341 X10*3/uL (160-400); Red Blood Count 4.44 X10*6/uL (4.20-5.50); Red Cell Distribution Width 12.3 % (11.0-16.0); White Blood Count 5.8 X10*3/uL (4.8-10.8)
[2021-03-22 18:12] LABS: Alanine Aminotransferase 13 U/L (0-31); Albumin Level 4.5 g/dL (3.5-5.0); Alkaline Phosphatase 103 U/L (39-117); Anion Gap 14 (12-20); Aspartate Amino Transferase 14 U/L (5-31); Bilirubin Total 0.3 mg/dL (0.0-1.0); Blood Urea Nitrogen 12 mg/dL (9-16); Calcium 9.4 mg/dL (8.4-10.2); Carbon Dioxide 23 mmol/L (22-29); Chloride 110 mmol/L (96-108); Estimated Glomerular Filt Rate > 60; Glucose Random 91 mg/dL (60-115); Potassium 4.7 mmol/L (3.3-5.1); Sodium 142 mmol/L (135-145); Total Protein 7.6 g/dL (6.5-8.0)
[2021-03-23 09:01] LABS: Lyme Abs Screen <0.90 index
== END 2021-03-22 16:47 | disposition home or self-care (01) ==
LOC: HO.LAB 16:46
PROVIDERS: PCP Internal Medicine; Visit Provider Internal Medicine
DX: D17.9 Benign lipomatous neoplasm, unspecified (principal); I10 Essential (primary) hypertension; I48.0 Paroxysmal atrial fibrillation; M22.42 Chondromalacia patellae, left knee; R21 Rash and other nonspecific skin eruption; R23.3 Spontaneous ecchymoses; Z79.01 Long term (current) use of anticoagulants
CPT/HCPCS: 36415; 80053; 85025; 86617; 86618

== ENCOUNTER → 2021-04-05 10:10 | Outpatient (BNVA) | payer OTHER, SELFPAY | PROVIDERS: PCP Internal Medicine; Visit Provider Surgery ==

== ENCOUNTER → 2021-04-13 15:13 | Outpatient (REF) | payer OTHER, SELFPAY | LOC: HO.CARD 15:13 | PROVIDERS: PCP Internal Medicine; Visit Provider Internal Medicine | DX: Z13.89 Encounter for screening for other disorder (principal) ==

== ENCOUNTER 2021-04-13 15:44 | Outpatient (REF) | payer OTHER, SELFPAY ==
[2021-04-13 16:12] LABS: COVID-19 Test Negative (Negative)
== END 2021-04-13 15:45 | disposition home or self-care (01) ==
LOC: HO.LAB 15:44
PROVIDERS: Visit Provider Internal Medicine
DX: Z20.822 Contact with and (suspected) exposure to COVID-19 (principal)
CPT/HCPCS: 36415; 87635; C9803

== ENCOUNTER 2021-05-01 12:01 | Outpatient (REF) | payer OTHER, SELFPAY | END 2021-05-01 12:02 | disposition home or self-care (01) | LOC: HO.LAB 12:01 | PROVIDERS: PCP Internal Medicine; Visit Provider Internal Medicine | DX: Z20.822 Contact with and (suspected) exposure to COVID-19 (principal) | CPT/HCPCS: C9803; U0003; U0005 ==

== ENCOUNTER → 2021-05-02 11:01 | Outpatient (REF) | payer OTHER, SELFPAY ==
--- NOTE | 2021-05-02 11:13 | HM_ITS ---
TEST PERFORMED: Cardiac event monitoring. INDICATION: Atrial fibrillation. ENROLLMENT PERIOD: 05/02/2021 to 06/01/2021-30 days. FINDINGS: In the above monitoring period, underlying rhythm was sinus. There were episodes of atrial fibrillation with rapid rate documented. At that time, the patient had symptoms of palpitations/racing/fluttering. The ventricular rate was 186/min. On other occasions, she had reported fluttering/palpitations, but the underlying rhythm was sinus. CONCLUSION: Studies positive for atrial fibrillation with rapid ventricular rates reaching as much as 186/min. Guillermo Torres MD HS/MODL / [id number]
== END ==
LOC: HO.CARD 11:01
PROVIDERS: Visit Provider Internal Medicine
DX: I48.0 Paroxysmal atrial fibrillation (principal)
CPT/HCPCS: 93270

== ENCOUNTER 2021-05-04 13:12 | Outpatient (REF) | payer OTHER, SELFPAY ==
--- NOTE | ~2021-05-04 | US_ITS ---
EXAMINATION: US ABDOMEN LIMITED CLINICAL INFORMATION: Fluoroscopy and. Question soft tissue mass left mid lateral back. COMPARISON: Previous chest x-ray October 2020 TECHNIQUE: Real-time imaging of the soft tissues of the left axilla using a linear transducer FINDINGS: No soft tissue abnormality is seen by ultrasound. US/US abdomen limited IMPRESSION: No abnormality seen by ultrasound.
== END 2021-05-04 13:13 | disposition home or self-care (01) ==
LOC: HO.US 13:12
PROVIDERS: PCP Internal Medicine; Visit Provider Surgery
DX: R07.81 Pleurodynia (principal)
CPT/HCPCS: 76705

== ENCOUNTER → 2021-05-15 10:46 | Outpatient (BNVA) | payer OTHER, SELFPAY | PROVIDERS: PCP Internal Medicine; Visit Provider Surgery ==

== ENCOUNTER 2021-06-07 12:27 | Outpatient (REF) | payer OTHER, SELFPAY | END 2021-06-07 12:28 | disposition home or self-care (01) | LOC: HO.LAB 12:27 | PROVIDERS: Visit Provider Internal Medicine | DX: Z20.822 Contact with and (suspected) exposure to COVID-19 (principal); I48.0 Paroxysmal atrial fibrillation; I47.1 Supraventricular tachycardia; I10 Essential (primary) hypertension; G45.9 Transient cerebral ischemic attack, unspecified | CPT/HCPCS: 93005; C9803; U0003; U0005 ==

== ENCOUNTER 2021-06-29 07:12 | Outpatient (REF) | payer OTHER, SELFPAY | END 2021-06-29 07:13 | disposition home or self-care (01) | LOC: HO.LAB 07:12 | PROVIDERS: Visit Provider Internal Medicine | DX: Z20.822 Contact with and (suspected) exposure to COVID-19 (principal) | CPT/HCPCS: C9803; U0003; U0005 ==

== ENCOUNTER 2021-07-03 12:30 | Outpatient (REF) | payer OTHER, SELFPAY | END 2021-07-03 12:31 | disposition home or self-care (01) | LOC: HO.LAB 12:30 | PROVIDERS: PCP Internal Medicine; Visit Provider Internal Medicine | DX: Z20.822 Contact with and (suspected) exposure to COVID-19 (principal) | CPT/HCPCS: U0003; U0005 ==

== ENCOUNTER 2021-07-10 09:19 | Outpatient (REF) | payer OTHER, SELFPAY | END 2021-07-10 09:20 | disposition home or self-care (01) | LOC: HO.LAB 09:19 | PROVIDERS: PCP Internal Medicine; Visit Provider Internal Medicine | DX: Z20.822 Contact with and (suspected) exposure to COVID-19 (principal) | CPT/HCPCS: C9803; U0003; U0005 ==

== ENCOUNTER → 2021-08-23 15:00 | Outpatient (BNVA) | payer OTHER, SELFPAY | PROVIDERS: PCP Internal Medicine; Visit Provider Internal Medicine | DX: I48.0 Paroxysmal atrial fibrillation (principal); I47.1 Supraventricular tachycardia; I10 Essential (primary) hypertension; Z79.01 Long term (current) use of anticoagulants; Z86.73 Personal history of transient ischemic attack (TIA), and cerebral infarction without residual deficits | CPT/HCPCS: 93005 ==

== ENCOUNTER 2021-10-06 11:52 | Outpatient (REF) | payer OTHER, SELFPAY ==
[2021-10-06 13:26] LABS: Binax Internal Control QC Valid; Binax Now Covid-19 Ag Negative (Negative)
== END 2021-10-06 11:53 | disposition home or self-care (01) ==
LOC: HO.LAB 11:52
PROVIDERS: Visit Provider Internal Medicine
DX: Z20.822 Contact with and (suspected) exposure to COVID-19 (principal)
CPT/HCPCS: 36415; C9803

== ENCOUNTER 2021-10-21 09:32 | Outpatient (REF) | payer OTHER, SELFPAY ==
[2021-10-21 09:50] LABS: MANUAL DIFF FLAG NO
[2021-10-21 10:43] LABS: Basophils Percent Auto 0.7 % (0-2); Eosinophils Absolute Auto 0.1 X10*3/uL (0.0-0.4); Eosinophils Percent Auto 0.9 % (0-4); Hematocrit 38.8 % (37.0-47.0); Hemoglobin 12.4 g/dl (12.0-16.0); Imm Gran Abs Auto 0.01 X10*3/uL (0.00-0.03); Imm Gran Pct Auto 0.2 % (0.0-0.4); Lymphocytes Absolute Auto 2.6 X10*3/uL (1.2-4.9); Lymphocytes Percent Auto 48.2 % (20-40); Mean Corpuscular Hemoglobin 30.2 pg (27.0-33.0); Mean Corpuscular Volume 94.4 fL (80.0-98.0); Mean Platelet Volume 9.3 fL (9.4-12.3); Monocytes Absolute Auto 0.3 X10*3/uL (0.1-1.2); Neutrophils Absolute Auto 2.4 x10*3/uL (2.0-8.3); Platelet Count 294 X10*3/uL (160-400); Red Blood Count 4.11 X10*6/uL (4.20-5.50); Red Cell Distribution Width 12.4 % (11.0-16.0); White Blood Count 5.4 X10*3/uL (4.8-10.8)
[2021-10-21 10:56] LABS: Alanine Aminotransferase 10 U/L (0-31); Albumin Level 4.2 g/dL (3.5-5.0); Alkaline Phosphatase 91 U/L (39-117); Anion Gap 10 (12-20); Aspartate Amino Transferase 12 U/L (5-31); Bilirubin Total 0.3 mg/dL (0.0-1.0); Blood Urea Nitrogen 12 mg/dL (9-16); Calcium 9.4 mg/dL (8.4-10.2); Carbon Dioxide 26 mmol/L (22-29); Chloride 109 mmol/L (96-108); Cholesterol 158 mg/dL; Estimated Glomerular Filt Rate > 60; Glucose Random 93 mg/dL (60-115); HDL Cholesterol 55 mg/dL; LDL Cholesterol Calculated 91 mg/dl; Potassium 4.6 mmol/L (3.3-5.1); Sodium 140 mmol/L (135-145); Total Protein 7.2 g/dL (6.5-8.0); Triglycerides 60 mg/dL
[2021-10-21 11:18] LABS: Thyroid Stimulating Hormone 0.81 uIU/mL (0.32-4.0)
== END 2021-10-21 09:33 | disposition home or self-care (01) ==
LOC: HO.LAB 09:32
PROVIDERS: Visit Provider Internal Medicine
DX: E78.00 Pure hypercholesterolemia, unspecified (principal); I10 Essential (primary) hypertension; I48.0 Paroxysmal atrial fibrillation; Z79.01 Long term (current) use of anticoagulants
CPT/HCPCS: 36415; 80053; 80061; 84443; 85025

== ENCOUNTER 2021-10-25 13:06 | Outpatient (REF) | payer OTHER, SELFPAY ==
[2021-10-25 13:28] LABS: Binax Internal Control QC Valid; Binax Now Covid-19 Ag Negative (Negative)
== END 2021-10-25 13:07 | disposition home or self-care (01) ==
LOC: HO.LAB 13:06
PROVIDERS: PCP Internal Medicine; Visit Provider Internal Medicine
DX: Z20.822 Contact with and (suspected) exposure to COVID-19 (principal)
CPT/HCPCS: C9803

== ENCOUNTER 2021-10-27 12:04 | Outpatient (REF) | payer OTHER, SELFPAY ==
[2021-10-27 12:18] LABS: Binax Internal Control QC Valid; Binax Now Covid-19 Ag Negative (Negative)
== END 2021-10-27 12:05 | disposition home or self-care (01) ==
LOC: HO.LAB 12:04
PROVIDERS: PCP Internal Medicine; Visit Provider Internal Medicine
DX: Z13.89 Encounter for screening for other disorder (principal)

== ENCOUNTER 2021-10-31 07:51 | Outpatient (REF) | payer OTHER, SELFPAY ==
[2021-10-31 08:16] LABS: Binax Internal Control QC Valid; Binax Now Covid-19 Ag Negative (Negative)
== END 2021-10-31 07:52 | disposition home or self-care (01) ==
LOC: HO.LAB 07:51
PROVIDERS: Visit Provider Internal Medicine
DX: Z13.89 Encounter for screening for other disorder (principal)

== ENCOUNTER → 2021-10-31 08:03 | Outpatient (REF) | payer OTHER, SELFPAY ==
--- NOTE | 2021-10-31 08:08 | HM_ITS ---
Total monitoring time 6 days and 17 hours. Underlying rhythm is sinus. Minimum heart rate 58/Min. Maximum 128/Min. Average 83/Min. No atrial fibrillation or flutter or AV blocks or pauses. Rare supraventricular ectopy with minimal burden. Very brief runs. Rare ventricular ectopy with minimal burden. Palpitations correlate with atrial runs. MTDD
== END ==
LOC: HO.CARD 08:03
PROVIDERS: PCP Internal Medicine; Visit Provider Internal Medicine
DX: I48.0 Paroxysmal atrial fibrillation (principal)
CPT/HCPCS: 93242

== ENCOUNTER 2021-11-03 12:53 | Outpatient (REF) | payer OTHER, SELFPAY ==
[2021-11-03 13:19] LABS: COVID-19 Test Negative (Negative)
== END 2021-11-03 12:54 | disposition home or self-care (01) ==
LOC: HO.LAB 12:53
PROVIDERS: Visit Provider Internal Medicine
DX: Z20.822 Contact with and (suspected) exposure to COVID-19 (principal)
CPT/HCPCS: 87635; C9803

== ENCOUNTER 2021-11-06 08:35 | Outpatient (REF) | payer OTHER, SELFPAY ==
[2021-11-06 08:57] LABS: COVID-19 Test Negative (Negative)
== END 2021-11-06 08:36 | disposition home or self-care (01) ==
LOC: HO.LAB 08:35
PROVIDERS: Visit Provider Internal Medicine
DX: Z20.822 Contact with and (suspected) exposure to COVID-19 (principal)
CPT/HCPCS: 87635; C9803

== ENCOUNTER 2021-11-08 07:23 | Outpatient (REF) | payer OTHER, SELFPAY ==
[2021-11-08 08:04] LABS: COVID-19 Test Negative (Negative)
== END 2021-11-08 07:24 | disposition home or self-care (01) ==
LOC: HO.LAB 07:23
PROVIDERS: Visit Provider Internal Medicine
DX: Z20.822 Contact with and (suspected) exposure to COVID-19 (principal)
CPT/HCPCS: 87635; C9803

== ENCOUNTER 2021-11-09 08:50 | Outpatient (REF) | payer OTHER, SELFPAY ==
[2021-11-09 09:10] LABS: COVID-19 Test Negative (Negative); IDNOW Serial# 16C4AD1C
== END 2021-11-09 08:51 | disposition home or self-care (01) ==
LOC: HO.LAB 08:50
PROVIDERS: Visit Provider Internal Medicine
DX: Z20.822 Contact with and (suspected) exposure to COVID-19 (principal)
CPT/HCPCS: 87635; C9803

== ENCOUNTER 2021-11-10 08:33 | Outpatient (REF) | payer OTHER, SELFPAY ==
[2021-11-10 08:52] LABS: COVID-19 Test Negative (Negative)
== END 2021-11-10 08:34 | disposition home or self-care (01) ==
LOC: HO.LAB 08:33
PROVIDERS: Visit Provider Internal Medicine
DX: Z20.822 Contact with and (suspected) exposure to COVID-19 (principal)
CPT/HCPCS: 87635; C9803

== ENCOUNTER 2021-11-13 08:28 | Outpatient (REF) | payer OTHER, SELFPAY ==
[2021-11-13 09:48] LABS: COVID-19 Test Negative (Negative)
== END 2021-11-13 08:29 | disposition home or self-care (01) ==
LOC: HO.LAB 08:28
PROVIDERS: Visit Provider Internal Medicine
DX: Z20.822 Contact with and (suspected) exposure to COVID-19 (principal)
CPT/HCPCS: 87635; C9803

== ENCOUNTER 2021-11-15 08:28 | Outpatient (REF) | payer OTHER, SELFPAY ==
[2021-11-15 08:48] LABS: COVID-19 Test Negative (Negative)
== END 2021-11-15 08:29 | disposition home or self-care (01) ==
LOC: HO.LAB 08:28
PROVIDERS: Visit Provider Internal Medicine
DX: Z20.822 Contact with and (suspected) exposure to COVID-19 (principal)
CPT/HCPCS: 87635; C9803

== ENCOUNTER 2021-11-20 07:57 | Outpatient (REF) | payer OTHER, SELFPAY ==
--- NOTE | ~2021-11-20 | MM_ITS ---
EXAMINATION: MM SCREENING DIGITAL BREAST TOMOSYNTHESIS, BILATERAL CLINICAL INFORMATION: Screening. Asymptomatic. Remote bilateral reduction mammoplasty, 2005. The lifetime risk of breast cancer based on the Tyrer-Cuzick Model is 10%. COMPARISON: Mammography: 11/14/2020, 10/05/2019, 09/26/2018 TECHNIQUE: Digital breast tomosynthesis is performed in both the craniocaudal and mediolateral oblique views along with computer-aided detection (CAD). Synthesized 2D images are generated from the tomosynthesis. FINDINGS: There are scattered areas of fibroglandular density (ACR BI-RADS breast composition Category b). There are no significant masses, abnormal calcifications, or other abnormalities. There is minor bilateral scarring and scattered benign calcifications consistent with the remote reduction mammoplasty. Scattered minor parenchymal asymmetries are stable. No developing density or significant change from prior exams. MM/MM tomosynthesis screening BI IMPRESSION: No mammographic evidence of malignancy. ASSESSMENT: BI-RADS 2: Benign RECOMMENDATION: Routine annual mammography screening. This patient's information was entered into a reminder system with a target due date for their next mammogram.
== END 2021-11-20 07:58 | disposition home or self-care (01) ==
LOC: HO.MAMMO 07:57
PROVIDERS: PCP Internal Medicine; Visit Provider Internal Medicine
DX: Z12.31 Encounter for screening mammogram for malignant neoplasm of breast (principal)
CPT/HCPCS: 77063; 77067

== ENCOUNTER 2021-11-21 08:31 | Outpatient (REF) | payer OTHER, SELFPAY ==
[2021-11-21 09:24] LABS: COVID-19 Test Negative (Negative)
== END 2021-11-21 08:32 | disposition home or self-care (01) ==
LOC: HO.LAB 08:31
PROVIDERS: Visit Provider Internal Medicine
DX: Z20.822 Contact with and (suspected) exposure to COVID-19 (principal)
CPT/HCPCS: 87635; C9803

== ENCOUNTER 2021-11-27 08:19 | Outpatient (REF) | payer OTHER, SELFPAY ==
[2021-11-27 08:58] LABS: COVID-19 Test Negative (Negative)
== END 2021-11-27 08:20 | disposition home or self-care (01) ==
LOC: HO.LAB 08:19
PROVIDERS: Visit Provider Internal Medicine
DX: Z20.822 Contact with and (suspected) exposure to COVID-19 (principal)
CPT/HCPCS: 87635; C9803

== ENCOUNTER 2021-11-28 07:32 | Outpatient (REF) | payer OTHER, SELFPAY ==
[2021-11-28 08:05] LABS: COVID-19 Test Negative (Negative); IDNOW Serial# 16C4AD1C
== END 2021-11-28 07:33 | disposition home or self-care (01) ==
LOC: HO.LAB 07:32
PROVIDERS: Visit Provider Internal Medicine
DX: Z20.822 Contact with and (suspected) exposure to COVID-19 (principal)
CPT/HCPCS: 87635; C9803

== ENCOUNTER 2021-11-29 14:52 | Outpatient (REF) | payer OTHER, SELFPAY ==
[2021-11-29 15:29] LABS: COVID-19 Test Negative (Negative)
== END 2021-11-29 14:53 | disposition home or self-care (01) ==
LOC: HO.LAB 14:52
PROVIDERS: Visit Provider Internal Medicine
DX: Z20.822 Contact with and (suspected) exposure to COVID-19 (principal); I48.0 Paroxysmal atrial fibrillation; I47.1 Supraventricular tachycardia; I10 Essential (primary) hypertension; G45.9 Transient cerebral ischemic attack, unspecified
CPT/HCPCS: 87635; 93005; C9803

== ENCOUNTER 2021-12-01 12:03 | Outpatient (REF) | payer OTHER, SELFPAY ==
[2021-12-01 12:28] LABS: COVID-19 Test Negative (Negative)
== END 2021-12-01 12:04 | disposition home or self-care (01) ==
LOC: HO.LAB 12:03
PROVIDERS: Visit Provider Internal Medicine
DX: Z20.822 Contact with and (suspected) exposure to COVID-19 (principal)
CPT/HCPCS: 87635; C9803

== ENCOUNTER 2021-12-04 15:16 | Outpatient (REF) | payer OTHER, SELFPAY ==
[2021-12-04 15:41] LABS: COVID-19 Test Negative (Negative)
== END 2021-12-04 15:17 | disposition home or self-care (01) ==
LOC: HO.LAB 15:16
PROVIDERS: Visit Provider Internal Medicine
DX: Z20.822 Contact with and (suspected) exposure to COVID-19 (principal)
CPT/HCPCS: 87635; C9803

== ENCOUNTER 2021-12-08 08:57 | Outpatient (REF) | payer OTHER, SELFPAY ==
[2021-12-08 09:43] LABS: COVID-19 Test Negative (Negative); IDNOW Serial# 08D9AD1C
== END 2021-12-08 08:58 | disposition home or self-care (01) ==
LOC: HO.LAB 08:57
PROVIDERS: Visit Provider Internal Medicine
DX: Z20.822 Contact with and (suspected) exposure to COVID-19 (principal)
CPT/HCPCS: 87635; C9803

== ENCOUNTER 2021-12-12 13:58 | Outpatient (REF) | payer OTHER, SELFPAY ==
[2021-12-12 14:34] LABS: COVID-19 Test Negative (Negative)
== END 2021-12-12 13:59 | disposition home or self-care (01) ==
LOC: HO.LAB 13:58
PROVIDERS: Visit Provider Internal Medicine
DX: Z20.822 Contact with and (suspected) exposure to COVID-19 (principal)
CPT/HCPCS: 87635; C9803

== ENCOUNTER 2021-12-20 12:07 | Outpatient (REF) | payer OTHER, SELFPAY ==
[2021-12-20 12:36] LABS: IDNOW Serial# 08D9AD1C
[2021-12-20 12:37] LABS: COVID-19 Test Negative (Negative)
== END 2021-12-20 12:08 | disposition home or self-care (01) ==
LOC: HO.LAB 12:07
PROVIDERS: Visit Provider Internal Medicine
DX: Z20.822 Contact with and (suspected) exposure to COVID-19 (principal)
CPT/HCPCS: 87635; C9803

== ENCOUNTER 2021-12-25 15:11 | Outpatient (REF) | payer OTHER, SELFPAY ==
[2021-12-25 16:09] LABS: COVID-19 Test Negative (Negative)
== END 2021-12-25 15:12 | disposition home or self-care (01) ==
LOC: HO.LAB 15:11
PROVIDERS: Visit Provider Internal Medicine
DX: Z20.822 Contact with and (suspected) exposure to COVID-19 (principal)
CPT/HCPCS: 87635; C9803

== ENCOUNTER 2022-01-04 14:17 | Outpatient (REF) | payer OTHER, SELFPAY ==
[2022-01-04 14:54] LABS: COVID-19 Test Negative (Negative); IDNOW Serial# 16C4AD1C
== END 2022-01-04 14:18 | disposition home or self-care (01) ==
LOC: HO.LAB 14:17
PROVIDERS: Visit Provider Internal Medicine
DX: Z20.822 Contact with and (suspected) exposure to COVID-19 (principal)
CPT/HCPCS: 87635; C9803

== ENCOUNTER 2022-01-09 09:06 | Outpatient (REF) | payer OTHER, SELFPAY ==
[2022-01-09 09:43] LABS: COVID-19 Test Negative (Negative); IDNOW Serial# 16C4AD1C
== END 2022-01-09 09:07 | disposition home or self-care (01) ==
LOC: HO.LAB 09:06
PROVIDERS: Visit Provider Internal Medicine
DX: Z20.822 Contact with and (suspected) exposure to COVID-19 (principal)
CPT/HCPCS: 87635; C9803

== ENCOUNTER 2022-01-17 12:52 | Outpatient (REF) | payer OTHER, SELFPAY ==
[2022-01-17 13:24] LABS: COVID-19 Test Negative (Negative); IDNOW Serial# 08D9AD1C
== END 2022-01-17 12:53 | disposition home or self-care (01) ==
LOC: HO.LAB 12:52
PROVIDERS: Visit Provider Internal Medicine
DX: Z20.822 Contact with and (suspected) exposure to COVID-19 (principal)
CPT/HCPCS: 87635; C9803

== ENCOUNTER 2022-01-22 12:13 | Outpatient (REF) | payer OTHER, SELFPAY ==
[2022-01-22 12:39] LABS: COVID-19 Test Negative (Negative)
== END 2022-01-22 12:14 | disposition home or self-care (01) ==
LOC: HO.LAB 12:13
PROVIDERS: Visit Provider Internal Medicine
DX: Z20.822 Contact with and (suspected) exposure to COVID-19 (principal)
CPT/HCPCS: 87635; C9803

== ENCOUNTER 2022-01-25 10:34 | Outpatient (REF) | payer OTHER, SELFPAY ==
[2022-01-25 11:08] LABS: COVID-19 Test Negative (Negative); IDNOW Serial# 08D9AD1C
== END 2022-01-25 10:35 | disposition home or self-care (01) ==
LOC: HO.LAB 10:34
PROVIDERS: Visit Provider Internal Medicine
DX: Z20.822 Contact with and (suspected) exposure to COVID-19 (principal)
CPT/HCPCS: 87635; C9803

== ENCOUNTER 2022-01-31 08:14 | Outpatient (REF) | payer OTHER, SELFPAY ==
[2022-01-31 09:43] LABS: COVID-19 Test Negative (Negative)
== END 2022-01-31 08:15 | disposition home or self-care (01) ==
LOC: HO.LAB 08:14
PROVIDERS: Visit Provider Internal Medicine
DX: Z20.822 Contact with and (suspected) exposure to COVID-19 (principal)
CPT/HCPCS: 87635; C9803

== ENCOUNTER 2022-02-05 12:58 | Outpatient (REF) | payer OTHER, SELFPAY ==
[2022-02-05 13:28] LABS: COVID-19 Test Negative (Negative); IDNOW Serial# 08D9AD1C
== END 2022-02-05 12:59 | disposition home or self-care (01) ==
LOC: HO.LAB 12:58
PROVIDERS: Visit Provider Internal Medicine
DX: Z20.822 Contact with and (suspected) exposure to COVID-19 (principal)
CPT/HCPCS: 87635; C9803

== ENCOUNTER 2022-02-08 10:13 | Outpatient (REF) | payer OTHER, SELFPAY ==
[2022-02-08 10:51] LABS: COVID-19 Test Negative (Negative); IDNOW Serial# 55D5AD1C
== END 2022-02-08 10:14 | disposition home or self-care (01) ==
LOC: HO.LAB 10:13
PROVIDERS: Visit Provider Internal Medicine
DX: Z20.822 Contact with and (suspected) exposure to COVID-19 (principal)
CPT/HCPCS: 87635; C9803

== ENCOUNTER 2022-02-12 12:46 | Outpatient (REF) | payer OTHER, SELFPAY ==
[2022-02-12 13:17] LABS: COVID-19 Test Negative (Negative); IDNOW Serial# 08D9AD1C
== END 2022-02-12 12:47 | disposition home or self-care (01) ==
LOC: HO.LAB 12:46
PROVIDERS: Visit Provider Internal Medicine
DX: Z20.822 Contact with and (suspected) exposure to COVID-19 (principal)
CPT/HCPCS: 87635; C9803

== ENCOUNTER 2022-02-14 11:54 | Outpatient (REF) | payer OTHER, SELFPAY ==
[2022-02-14 12:47] LABS: COVID-19 Test Negative (Negative); IDNOW Serial# 08D9AD1C
== END 2022-02-14 11:55 | disposition home or self-care (01) ==
LOC: HO.LAB 11:54
PROVIDERS: Visit Provider Internal Medicine
DX: Z20.822 Contact with and (suspected) exposure to COVID-19 (principal)
CPT/HCPCS: 87635; C9803

== ENCOUNTER 2022-02-15 14:47 | Outpatient (REF) | payer OTHER, SELFPAY ==
[2022-02-15 15:22] LABS: COVID-19 Test Negative (Negative)
== END 2022-02-15 14:48 | disposition home or self-care (01) ==
LOC: HO.LAB 14:47
PROVIDERS: Visit Provider Internal Medicine
DX: Z20.822 Contact with and (suspected) exposure to COVID-19 (principal)
CPT/HCPCS: 87635; C9803

== ENCOUNTER 2022-02-19 12:26 | Outpatient (REF) | payer OTHER, SELFPAY ==
[2022-02-19 12:58] LABS: COVID-19 Test Negative (Negative)
== END 2022-02-19 12:27 | disposition home or self-care (01) ==
LOC: HO.LAB 12:26
PROVIDERS: Visit Provider Internal Medicine
DX: Z20.822 Contact with and (suspected) exposure to COVID-19 (principal)
CPT/HCPCS: 87635; C9803

== ENCOUNTER 2022-02-22 09:08 | Outpatient (REF) | payer OTHER, SELFPAY ==
[2022-02-22 09:44] LABS: COVID-19 Test Negative (Negative); IDNOW Serial# 08D9AD1C
== END 2022-02-22 09:09 | disposition home or self-care (01) ==
LOC: HO.LAB 09:08
PROVIDERS: Visit Provider Internal Medicine
DX: Z20.822 Contact with and (suspected) exposure to COVID-19 (principal)
CPT/HCPCS: 87635; C9803

== ENCOUNTER 2022-03-15 13:56 | Outpatient (REF) | payer OTHER, SELFPAY ==
[2022-03-15 14:30] LABS: COVID-19 Test Negative (Negative)
== END 2022-03-15 13:57 | disposition home or self-care (01) ==
LOC: HO.LAB 13:56
PROVIDERS: Visit Provider Internal Medicine
DX: Z20.822 Contact with and (suspected) exposure to COVID-19 (principal)
CPT/HCPCS: 87635; C9803

== ENCOUNTER 2022-03-27 09:54 | Outpatient (REF) | payer OTHER, SELFPAY ==
[2022-03-27 10:52] LABS: COVID-19 Test Negative (Negative); IDNOW Serial# 16C4AD1C
== END 2022-03-27 09:55 | disposition home or self-care (01) ==
LOC: HO.LAB 09:54
PROVIDERS: Visit Provider Internal Medicine
DX: Z20.822 Contact with and (suspected) exposure to COVID-19 (principal)
CPT/HCPCS: 87635; C9803

== ENCOUNTER 2022-05-21 09:22 | Outpatient (REF) | payer OTHER, SELFPAY ==
[2022-05-21 09:52] LABS: COVID-19 Test Negative (Negative)
== END 2022-05-21 09:23 | disposition home or self-care (01) ==
LOC: HO.LAB 09:22
PROVIDERS: Visit Provider Internal Medicine
DX: Z20.822 Contact with and (suspected) exposure to COVID-19 (principal)
CPT/HCPCS: 87635; C9803

== ENCOUNTER 2022-05-22 14:51 | Outpatient (REF) | payer OTHER, SELFPAY ==
[2022-05-22 16:02] LABS: COVID-19 Test Negative (Negative)
== END 2022-05-22 14:52 | disposition home or self-care (01) ==
LOC: HO.LAB 14:51
PROVIDERS: Visit Provider Internal Medicine
DX: Z20.822 Contact with and (suspected) exposure to COVID-19 (principal)
CPT/HCPCS: 87635; C9803

== ENCOUNTER 2022-05-23 12:32 | Outpatient (REF) | payer OTHER, SELFPAY ==
[2022-05-23 13:17] LABS: COVID-19 Test Negative (Negative); IDNOW Serial# 16C4AD1C
== END 2022-05-23 12:33 | disposition home or self-care (01) ==
LOC: HO.LAB 12:32
PROVIDERS: Visit Provider Internal Medicine
DX: Z20.822 Contact with and (suspected) exposure to COVID-19 (principal)
CPT/HCPCS: 87635; C9803

== ENCOUNTER 2022-05-24 13:19 | Outpatient (REF) | payer OTHER, SELFPAY ==
[2022-05-24 14:07] LABS: COVID-19 Test Negative (Negative); IDNOW Serial# 16C4AD1C
== END 2022-05-24 13:20 | disposition home or self-care (01) ==
LOC: HO.LAB 13:19
PROVIDERS: Visit Provider Internal Medicine
DX: Z20.822 Contact with and (suspected) exposure to COVID-19 (principal)
CPT/HCPCS: 87635; C9803

== ENCOUNTER 2022-05-25 15:19 | Outpatient (REF) | payer OTHER, SELFPAY ==
[2022-05-25 15:54] LABS: COVID-19 Test Negative (Negative); IDNOW Serial# 16C4AD1C
== END 2022-05-25 15:20 | disposition home or self-care (01) ==
LOC: HO.LAB 15:19
PROVIDERS: Visit Provider Internal Medicine
DX: Z20.822 Contact with and (suspected) exposure to COVID-19 (principal)
CPT/HCPCS: 87635; C9803

== ENCOUNTER 2022-05-28 15:37 | Outpatient (REF) | payer OTHER, SELFPAY ==
[2022-05-28 16:13] LABS: COVID-19 Test Negative (Negative)
== END 2022-05-28 15:38 | disposition home or self-care (01) ==
LOC: HO.LAB 15:37
PROVIDERS: Visit Provider Internal Medicine
DX: Z20.822 Contact with and (suspected) exposure to COVID-19 (principal)
CPT/HCPCS: 87635; C9803

== ENCOUNTER 2022-05-29 12:46 | Outpatient (REF) | payer OTHER, SELFPAY ==
[2022-05-29 13:43] LABS: COVID-19 Test Negative (Negative); IDNOW Serial# 16C4AD1C
== END 2022-05-29 12:47 | disposition home or self-care (01) ==
LOC: HO.LAB 12:46
PROVIDERS: Visit Provider Internal Medicine
DX: Z20.822 Contact with and (suspected) exposure to COVID-19 (principal)
CPT/HCPCS: 87635; C9803

== ENCOUNTER 2022-05-30 09:50 | Outpatient (REF) | payer OTHER, SELFPAY ==
[2022-05-30 10:13] LABS: COVID-19 Test Positive (Negative); IDNOW Serial# 16C4AD1C
== END 2022-05-30 09:51 | disposition home or self-care (01) ==
LOC: HO.LAB 09:50
PROVIDERS: Visit Provider Internal Medicine
DX: Z20.822 Contact with and (suspected) exposure to COVID-19 (principal)
CPT/HCPCS: 87635; C9803

== ENCOUNTER 2022-06-06 08:03 | Outpatient (REF) | payer OTHER, SELFPAY ==
[2022-06-06 08:44] LABS: COVID-19 Test Positive (Negative)
== END 2022-06-06 08:04 | disposition home or self-care (01) ==
LOC: HO.LAB 08:03
PROVIDERS: Visit Provider Internal Medicine
DX: Z20.822 Contact with and (suspected) exposure to COVID-19 (principal)
CPT/HCPCS: 87635; C9803

== ENCOUNTER 2022-06-07 08:34 | Outpatient (REF) | payer OTHER, SELFPAY ==
[2022-06-07 09:39] LABS: COVID-19 Test Negative (Negative); IDNOW Serial# 9DB6401D
== END 2022-06-07 08:35 | disposition home or self-care (01) ==
LOC: HO.LAB 08:34
PROVIDERS: Visit Provider Internal Medicine
DX: Z20.822 Contact with and (suspected) exposure to COVID-19 (principal)
CPT/HCPCS: 87635; C9803

== ENCOUNTER 2022-10-02 09:04 | Outpatient (REF) | payer OTHER, SELFPAY ==
[2022-10-02 09:31] LABS: COVID-19 Test Negative (Negative); IDNOW Serial# 9DB6401D
== END 2022-10-02 09:05 | disposition home or self-care (01) ==
LOC: HO.LAB 09:04
PROVIDERS: Visit Provider Internal Medicine
DX: Z20.822 Contact with and (suspected) exposure to COVID-19 (principal)
CPT/HCPCS: 87635; C9803

== ENCOUNTER 2022-10-16 14:40 | Outpatient (REF) | payer OTHER, SELFPAY ==
[2022-10-16 15:11] LABS: COVID-19 Test Negative (Negative); IDNOW Serial# BCCEAD1C
== END 2022-10-16 14:41 | disposition home or self-care (01) ==
LOC: HO.LAB 14:40
PROVIDERS: Visit Provider Internal Medicine
DX: Z20.822 Contact with and (suspected) exposure to COVID-19 (principal)
CPT/HCPCS: 87635; C9803

== ENCOUNTER 2022-10-23 13:42 | Outpatient (REF) | payer OTHER, SELFPAY ==
[2022-10-23 14:40] LABS: COVID-19 Test Negative (Negative); IDNOW Serial# BCCEAD1C
== END 2022-10-23 13:43 | disposition home or self-care (01) ==
LOC: HO.LAB 13:42
PROVIDERS: Visit Provider Internal Medicine
DX: Z20.822 Contact with and (suspected) exposure to COVID-19 (principal)
CPT/HCPCS: 87635; C9803

== ENCOUNTER 2022-10-24 08:39 | Emergency (ER) | payer OTHER, SELFPAY ==
--- NOTE | ~2022-10-24 | XR_ITS ---
EXAMINATION: XR CHEST CLINICAL INFORMATION: Chest pain and shortness of breath COMPARISON: 11/18/2020 TECHNIQUE: Frontal view of the chest was obtained. FINDINGS: No significant abnormality is noted involving the heart, lungs, mediastinum, bony thorax or soft tissues. XR/XR chest 1V IMPRESSION: Unremarkable examination.
--- NOTE | 2022-10-24 08:46 | ECG_ITS ---
Test Reason : Chest Pain / Cough Hx Cardiac Blood Pressure : / mmHG Vent. Rate : 089 BPM Atrial Rate : 089 BPM P-R Int : 136 ms QRS Dur : 084 ms QT Int : 362 ms P-R-T Axes : 052 013 -07 degrees QTc Int : 440 ms Normal sinus rhythm Normal ECG When compared with ECG of 18-NOV-2020 09:19, No significant change was found Referred By: Naila Mcclellan Electronically Signed By:JAMAR INIGUEZ
[2022-10-24 08:53] VITALS: BP 117/79; PULSE 88; RESP 16; TEMP 36.9; O2SAT 98; BMI 32.1
--- NOTE | 2022-10-24 08:53 | ED.URI ---
HPI - URI/Sore Throat General Chief Complaint: Chest Pain Stated Complaint: chest pain with cough Time Seen by Provider: 10/24/22 08:42 Source: patient Mode of arrival: ambulatory Limitations: no limitations History of Present Illness HPI Narrative: 57-year-old female the past medical history HTN, PAT, PAF, asthma, and DM presents to the emergency department with complaints of shortness of breath and chest pain with cough for the past 2 weeks. She describes her pain as an ache beginning in left posterior ribs radiating into her anterior ribs, 7/10. She reports pain worsens with cough. She states that she had a telehealth visit with her primary care provider yesterday who started her on 20 mg p.o. prednisone b.i.d. and a 5 day course of azithromycin. She also reports she was seen last week by [facility], tested negative for influenza and COVID, and prescribed Flovent and albuterol inhalers. She reports she had a temperature of 102.0? at 2:00 a.m. which she took Tylenol for with good effect. Pt denies any paresthesias, weakness, chills, nausea, vomiting, diarrhea, constipation, headache, or vision changes. MD elicited complaint: fever Pertinent past history: asthma Onset (ago): week(s) (2) Consistency: constant Severity: moderate Pain scale (0-10): 7 Description of mucous: green and other (thick) Exacerbating factors: exertion and deep breaths Treatments prior to arrival: acetaminophen (@ 2 am) Related Data Home Medications Medication Instructions Recorded Confirmed atorvastatin 20 mg tablet 20 mg PO BEDTIME 07/25/20 06/06/22 multivitamin 1 tab PO DAILY 07/25/20 06/06/22 Previous Rx's Medication Instructions Recorded lisinopril 10 mg tablet 10 mg PO DAILY 90 days #90 tabs 12/08/21 rivaroxaban 20 mg tablet (Xarelto) 20 mg PO DAILY #90 tabs 02/07/22 diltiazem HCl 180 mg 180 mg PO DAILY #90 caps 10/22/22 capsule,extended release 24 hr Allergies Allergy/AdvReac Type Severity Reaction Status Date / Time amoxicillin [AMOXICILLIN] Allergy Intermediate RASH Verified 06/06/22 15:01 Review of Systems Review of Systems: In addition to documented HPI above, the additional ROS was obtained: CONSTITUTIONAL: Denies chills, weakness, fatigue, headache, night sweats, or weight loss. EYES: Denies vision changes, eye pain, swelling, redness, foreign body, discharge ENT: Hearing normal. Denies sore throat, swallowing difficulty, throat tightness, hoarse voice, congestion, or ear pain. CV: Denies epigastric pain. No edema, palpitations, or dyspnea on exertion RESP: Denies wheezing, dyspnea. Denies smoke exposure GI: Denies abdominal pain. Denies nausea, vomiting, constipation or diarrhea. No hematemesis, melena, or hematochezia. : Denies dysuria, urinary frequency, urinary incontinence/retention, urgency. Denies flank pain or hematuria MSK: Denies recent trauma, change in gait, myalgias, joint swelling or pain SKIN: Denies no lesions, rashes, or sores NEURO: Denies new numbness, tingling, dizziness, paresthesias or weakness. No loss of consciousness. Denies headache ENDOCRINE: Denies unexpected weight loss. Denies polyuria, polydipsia. No temperature intolerance HEME/ONC: Denies bleeding disorders, easy bruising, or lymphadenopathy PSYCH: Denies anxiety/panic, depression, SI/HI, or social issues. Yes all other systems are reviewed and are negative [facility] Past Medical History Attestation statement: The following information was validated with the patient. Source: old records reviewed Medical History Asthma Diabetes mellitus Essential hypertension Hypertension Internal and external bleeding hemorrhoids Morbid obesity PAF (paroxysmal atrial fibrillation) PAT (paroxysmal atrial tachycardia) Rib pain on left side TIA (transient ischemic attack) Surgical History History of abdominoplasty (~2006) History of bilateral breast reduction surgery (~2005) History of hysterectomy (~12/2014) History of removal of laparoscopic gastric banding device (~12/2018) History of tubal ligation Hx of laparoscopic gastric banding (~2010) Family History Family History Maternal Aunt History of colon cancer Paternal Aunt History of breast cancer Social History Social History Alcohol intake: never Patient Tobacco Use Status: Never used Tobacco Advance Directives: No Physical Exam Vital Signs: Vital Signs: Last Vital Signs Temp 98.5 F 10/24/22 08:53 Pulse 88 10/24/22 08:53 Resp 16 10/24/22 08:53 BP 117/79 10/24/22 08:53 Pulse Ox 98 10/24/22 08:53 O2 Del Method 10/24/22 08:53 BMI result Body Mass Index 32.1 Nursing notes and vital signs reviewed. GENERAL APPEARANCE: A&0 x 4, generally well appearing, no acute distress HENMT: Normal to inspection, atraumatic, face symmetrical. Normal external ears, nose, and oropharynx clear. EYE: PERRLA, EOM intact, structures appear normal NECK: Supple without lymphadenopathy. No stiffness or restricted ROM. CHEST: Normal to inspection HEART: Normal rate and regular rhythm, normal S1/S2, no M/R/G LUNGS: LS CTA, diminished in bilateral lower lobes. Able to speak in complete sentences. No crackles, wheezes, or rhonchi auscultated. ABDOMEN: Soft, nontender, nondistended. Normal bowel sounds noted BACK: No CVAT, no obvious deformity EXTREMITIES: Moving all extremities without difficulty. No cyanosis, clubbing, or edema. Normal capillary refill. NEUROLOGICAL: Alert and oriented, moving all 4 extremities with equal strength. CN not formally tested but appearing grossly intact. Observed to ambulate with normal gait. Cognition normal SKIN: Warm and dry without any lesions, rash, or visible sores PSYCH: Cooperative, normal affect, normal thought process Course Course Course Narrative: 0850: Plan for covid/flu swabs. EKG due to SOB and cardiac history 0905: Plan for CXR due to complaints of chest pain Medical Decision Making Medical Decision Making [facility] Narrative: 57-year-old female the past medical history HTN, PAT, PAF, asthma, and DM presents to the emergency department with complaints of shortness of breath and chest pain with cough for the past 2 weeks. Serology positive for influenza A. Chest x-ray negative for pneumonia or other cardiopulmonary disease. LS CTA, diminished in bilateral lower bases, JOYNER with good strength, A&O x 4. History, physical, diagnosis exam is consistent with viral upper respiratory infection. Low suspicion for ACS, PE, pneumonia, costochondritis. Patient is safe for discharge at this time with plan to manage symptoms with [id number] Tylenol and/or NSAIDs such as ibuprofen or naproxen, [id number] cough and cold medications that do not contain phenylephrine or dextromethorphan. HPI, PE, diagnostics, and plan discussed with patient and family with no unanswered questions at this time. Patient educated to return to the emergency department with new, worsening, or concerning emergent symptoms. Recommended to follow-up with there primary care provider for further treatment and management. *Refer to Course for additional information on consultations, diagnostic interpretation, consultations, emergency department stay, conversations with patient and family, shared decision making with patient, and more information on medical decision making* Lab Data Labs: Lab Results 10/24/22 10/24/22 Range/Units 09:02 09:03 COVID-19 ([facility]) Negative (Negative) COVID-19 Clin Com See Note Influenza Type A ([facility]) Positive A (Negative) Influenza Type B ([facility]) Negative (Negative) Influenza A & B Note See Note Discharge Plan Discharge Clinical Impression: Influenza A Patient Disposition: Home, Self-Care Instructions: Influenza (ED), Droplet Precautions (ED) Additional Instructions: Your chest x-ray is negative for pneumonia. Your nasal swab is negative for COVID-19 but positive for with influenza A today. It is recommended that you manage your symptoms with [id number] Tylenol and/or NSAIDs such as ibuprofen or naproxen. You may use roih-lcr-[id number] cough and cold medications to also manage your symptoms. Do not use any medications that contain phenylephrine or dextromethorphan as they can increase your heart rate. Please return to the emergency department with new, worsening, or concerning emergent symptoms. Please follow-up with your primary care provider for further treatment and management. Please continue on the medications prescribed by her primary care provider Prescriptions: No Action lisinopril 10 mg tablet 10 mg PO DAILY 90 Days Qty: 90 3RF Xarelto 20 mg tablet 20 mg PO DAILY Qty: 90 3RF diltiazem HCl 180 mg capsule,extended release 24hr 180 mg PO DAILY Qty: 90 3RF atorvastatin 20 mg tablet 20 mg PO BEDTIME multivitamin Tablet 1 tab PO DAILY Referrals: Monique Dill MD [Primary Care Provider] - Stand Alone Forms: Work/School Release Interventions: ED Discharge Assessment Last Done: 10/24/22 10:02 Discharge Date/Time: 10/24/22 10:02 Print Language: [place]
[2022-10-24 09:40] LABS: IDNOW Serial# BCCEAD1C; Influenza A Positive (Negative); Influenza B2 Negative (Negative)
[2022-10-24 09:40] LABS: COVID-19 Test Negative (Negative); IDNOW Serial# 16C4AD1C
== END 2022-10-24 10:02 | disposition home or self-care (01) ==
PROVIDERS: Nurse Practitioner Family; Emergency Provider Emergency Medicine; PCP Internal Medicine
DX: J11.1 Influenza due to unidentified influenza virus with other respiratory manifestations (principal); I10 Essential (primary) hypertension; E11.9 Type 2 diabetes mellitus without complications; J45.909 Unspecified asthma, uncomplicated; I48.0 Paroxysmal atrial fibrillation; Z79.02 Long term (current) use of antithrombotics/antiplatelets; Z79.01 Long term (current) use of anticoagulants; Z79.899 Other long term (current) drug therapy
CPT/HCPCS: 71045; 87502; 87635; 93005; 99283

== ENCOUNTER 2022-10-27 11:43 | Emergency (ER) | payer OTHER, SELFPAY ==
--- NOTE | ~2022-10-27 | XR_ITS ---
EXAMINATION: XR CHEST CLINICAL INFORMATION: Cough and wheezing COMPARISON: None TECHNIQUE: 2 views of the chest were obtained. FINDINGS: The lungs are well-expanded and clear of acute process. The heart size and pulmonary vascularity is normal. No gross bony abnormality seen XR/XR chest 2V IMPRESSION: Unremarkable chest exam.
[2022-10-27 11:56] VITALS: BP 124/77; PULSE 91; RESP 16; TEMP 36.7; O2SAT 97; BMI 32.1
--- NOTE | 2022-10-27 12:12 | ED_ITS ---
HPI - URI/Sore Throat General Chief Complaint: Upper Respiratory Symptoms Stated Complaint: low oxygen, Flu + Wed Time Seen by Provider: 10/27/22 11:58 Source: patient Mode of arrival: ambulatory Limitations: no limitations History of Present Illness HPI Narrative: 57-year-old female the past medical history HTN, afib on xarelto, asthma, and DM?here with cough, congestion for the last 2 weeks with intermittent fevers. Patient spoke to her primary care on October 23 and was given a prescription for azithromycin and prednisone. Seen here on October 24 and diagnosed with influenza a. Patient is currently taking prednisone and using albuterol inhaler. She did not start the azithromycin because she was worried that it may interact with her other medications. Patient reports over last 2 days increased shortness of breath, wheezing, need for albuterol. Patient reports she has a productive cough with clear sputum. She is still having intermittent fever and last fever was 101 last evening. Patient denies chest pain, leg swelling, leg pain. Patient also concern vitals are pulse oximeter at home was ranging from 88 and 92% Related Data Home Medications Medication Instructions Recorded Confirmed atorvastatin 20 mg tablet 20 mg PO BEDTIME 07/25/20 06/06/22 multivitamin 1 tab PO DAILY 07/25/20 06/06/22 Previous Rx's Medication Instructions Recorded lisinopril 10 mg tablet 10 mg PO DAILY 90 days #90 tabs 12/08/21 rivaroxaban 20 mg tablet (Xarelto) 20 mg PO DAILY #90 tabs 02/07/22 diltiazem HCl 180 mg 180 mg PO DAILY #90 caps 10/22/22 capsule,extended release 24 hr benzonatate 200 mg capsule 200 mg PO TID PRN cough #30 caps 10/27/22 doxycycline monohydrate 100 mg 100 mg PO BID #14 tabs 10/27/22 tablet Allergies Allergy/AdvReac Type Severity Reaction Status Date / Time amoxicillin [AMOXICILLIN] Allergy Intermediate RASH Verified 06/06/22 15:01 Review of Systems Review of Systems: Yes all other systems are reviewed and are negative Constitutional: Constitutional: Reports no additional constitutional comp laints, Denies body ache(s), Denies chills, Reports fever(s), Denies headache(s) and Denies weakness Eyes: Eyes: Reports no additional eye complaints and Denies change in vision ENT: Reports system reviewed and no additional complaints, except as documented, Denies dizziness, Denies headache(s), Denies nasal congestion, Denies nasal discharge and Denies neck pain Cardiovascular: Cardiovascular: Reports no additional cardiovascular complaints, Denies chest pain, Denies leg edema and Reports dyspnea Respiratory: Respiratory: Reports no additional respiratory complaints, Reports cough, Reports dyspnea and Reports wheezing Gastrointestinal: Gastrointestinal: Reports no additional gastrointestinal complaints, Denies abdominal pain, Denies diarrhea, Denies nausea and Denies vomiting Genitourinary: Genitourinary: Reports no additional female genitourinary complaints and Denies urinary incontinence Musculoskeletal: Musculoskeletal: Reports no additional musculoskeletal complaints, Denies back pain, Denies arthralgias, Denies joint swelling, Denies neck pain, Denies numbness and Denies tingling Integumentary/Breasts: Skin/Breast: Reports system reviewed and no additional complaints, except as docu and Denies rash Neurologic: Reports system reviewed and no additional complaints, except as documented, Denies Abnormal speech present, Denies dizziness, Denies headache(s), Denies numbness, Denies tingling and Denies weakness Allergic/Immunologic: Allergic/Immunologic: Reports wheezing PMFSH Past Medical History Attestation statement: The following information was validated with the patient. Source: old records reviewed and nursing notes reviewed Medical History Asthma Diabetes mellitus Essential hypertension Hypertension Internal and external bleeding hemorrhoids Morbid obesity PAF (paroxysmal atrial fibrillation) PAT (paroxysmal atrial tachycardia) Rib pain on left side TIA (transient ischemic attack) Surgical History History of abdominoplasty (~2006) History of bilateral breast reduction surgery (~2005) History of hysterectomy (~12/2014) History of removal of laparoscopic gastric banding device (~12/2018) History of tubal ligation Hx of laparoscopic gastric banding (~2010) Family History Family History Maternal Aunt History of colon cancer Paternal Aunt History of breast cancer Social History Social History Alcohol intake: never Patient Tobacco Use Status: Never used Tobacco Use of substances other than those prescribed or required for medical reasons: No Advance Directives: No Physical Exam Vital Signs: Vital Signs: Last Vital Signs Temp 98.1 F 10/27/22 11:56 Pulse 87 10/27/22 13:29 Resp 20 10/27/22 13:29 BP 111/56 L 10/27/22 13:29 Pulse Ox 98 10/27/22 13:34 O2 Del Method 10/27/22 13:34 BMI result Body Mass Index 32.1 Const: General: cooperative, healthy appearing, comfortable and no acute distress Orientation/consciousness: patient oriented x3 Limitations: no limitations HEENT: Head: Yes normal to inspection Ears: hearing grossly normal bilaterally and TM's normal bilaterally General nose exam: Normal external nose present Face and sinus: Yes normal facial exam Mouth: Normal oral and palatal mucosa present Throat: Yes posterior oropharynx normal, Yes tonsils normal and Yes uvula midline Eyes: General: appearance normal, both eyes and all related structures Pupils: Equal, round and reactive pupils present Neck: Neck: Yes normal visual inspection Chest: Chest palpation & inspection: normal inspection of the chest Resp: Effort & Inspection: normal respiratory effort Auscultation: wheezes (mild-diffuse) expiratory wheezes Cardio: Rate: regular rate Rhythm: regular rhythm Peripheral pulses: Peripheral pulses 2+ throughout GI: Inspection: Yes normal to inspection Palpation (GI): Soft to palpation and nontender Auscultation: normal bowel sounds Back/Spine/Pelvis: Thoracic/Lumbar Spine: thoracic and lumbar spine normal to inspection Skin: General skin exam: no rashes or lesions noted Neuro: General: patient oriented x3, no focal motor deficits and normal sensation to monofilament Cranial nerves: Yes Equal, round and reactive pupils present Cognition (Neuro): normal cognition Speech: No Abnormal speech present Gait exam (Neuro): Normal gait present Motor exam (neuro): 5/5 motor strength present throughout Extrem: General: Yes normal to inspection, Yes no pedal edema and Yes no calf tenderness Course Course Course Narrative: Labs are unremarkable. Chest x-ray shows no acute finding. Patient with improved after receiving DuoNeb. As patient had symptoms for 2 weeks consider adding antibiotics for bronchitis. Patient is still taking prednisone and has adequate albuterol home. Will also give cough suppressant. Saturations are greater than 95% here with no hypoxia. Patient overall nontoxic appearing. Reviewed worrisome signs and symptoms when to return to the emergency room. Comfortable plan for discharge home. Medications Administered Discontinued Medications Generic Name Dose Route Start Last Admin Trade Name Piper PRN Reason Stop Dose Admin Albuterol/Ipratropium 3 ml 10/27/22 12:12 10/27/22 12:33 Albuterol/Iprat 2.5/0.5mg 3 Ml Ampul.Neb INHALE 10/27/22 12:13 3 ml ONCE ONE Administration Benzonatate 200 mg 10/27/22 12:39 10/27/22 13:28 Benzonatate 100 Mg Capsule PO 10/27/22 12:40 200 mg ONCE ONE Administration Medical Decision Making Medical Decision Making [facility] Narrative: 57-year-old female flu A positive here with continued cough, wheezing, intermittent fevers and shortness of breath and concern for hypoxia at home despite using her albuterol inhaler in being on prednisone. On arrival but is stable. Oxygen saturation normal. Lungs with mild expiratory wheezing throughout. Will check labs, chest x-ray. Will give DuoNeb. Differential Diagnosis Differential Diagnoses: The differential diagnosis associated with the presentation includes Influenza, asthma saturation, pneumonia Lab Data [facility] Lab Attestation statement: I reviewed the patient's lab results. 10/27/22 12:47 10/27/22 12:47 Labs: Lab Results 10/27/22 10/27/22 Range/Units 12:47 12:47 WBC 8.4 (4.8-10.8) X10*3/uL RBC 4.09 L (4.20-5.50) X10*6/uL Hgb 12.1 (12.0-16.0) g/dl Hct 36.9 L (37.0-47.0) % MCV 90.2 (80.0-98.0) fL MCH 29.6 (27.0-33.0) pg MCHC 32.8 (31.0-35.0) g/dl RDW 13.2 (11.0-16.0) % Plt Count 338 (160-400) X10*3/uL MPV 8.5 L (9.4-12.3) fL Immature Gran % (Auto) 0.2 (0.0-0.4) % Neut % (Auto) 57.7 (45-73) % Lymph % (Auto) 34.2 (20-40) % [place] % (Auto) 7.7 (2-11) % Eos % (Auto) 0.0 (0-4) % Baso % (Auto) 0.2 (0-2) % Lymph # (Auto) 2.9 (1.2-4.9) X10*3/uL [place] # (Auto) 0.7 (0.1-1.2) X10*3/uL Eos # (Auto) 0.0 (0.0-0.4) X10*3/uL Baso # (Auto) 0.0 (0.0-0.2) X10*3/uL Abs Immat Gran (auto) 0.02 (0.00-0.03) X10*3/uL Absolute Neuts (auto) 4.9 (2.0-8.3) x10*3/uL Absolute Nucleated RBC 0.000 (0.0-0.012) X10*3/uL Nucleated RBC % (auto) 0.0 (0.0-0.2) /100WBC Sodium 143 (135-145) mmol/L Potassium 3.9 (3.3-5.1) mmol/L Chloride 108 (96-108) mmol/L Carbon Dioxide 26 (22-29) mmol/L Anion Gap 13 (12-20) BUN 15 (9-16) mg/dL Creatinine 0.85 (0.5-1.4) mg/dL Estim Creat Clear Calc 63.8 Estimated GFR > 60 Random Glucose 117 H (60-115) mg/dL Calcium 9.3 (8.4-10.2) mg/dL Total Bilirubin 0.3 (0.0-1.0) mg/dL Direct Bilirubin < 0.2 (0.0-0.5) mg/dL AST 12 (5-31) U/L ALT 12 (0-31) U/L Alkaline Phosphatase 95 (39-117) U/L Total Protein 6.7 (6.5-8.0) g/dL Albumin 3.9 (3.5-5.0) g/dL Independent Interpretation I performed an independent interpretation of an: Plain X-Ray Interpretation: I independently reviewed the chest x-ray which shows no acute finding Radiology Impression Discussion of test interpretation with radiology: I have reviewed the radiologist's reading. Radiologist Impression: ATION: XR CHEST CLINICAL INFORMATION: Cough and wheezing COMPARISON: None TECHNIQUE: 2 views of the chest were obtained. FINDINGS: The lungs are well-expanded and clear of acute process. The heart size and pulmonary vascularity is normal. No gross bony abnormality seen XR/XR chest 2V IMPRESSION: Unremarkable chest exam. ? Discharge Plan Discharge Clinical Impression: Influenza, Bronchitis Patient Disposition: Home, Self-Care Instructions: Influenza (ED), Acute Bronchitis (ED) Additional Instructions: Your x-ray shows no signs of pneumonia Continue prednisone and albuterol inhaler Follow-up with primary care doctor next week Prescriptions: New doxycycline monohydrate 100 mg tablet 100 mg PO BID Qty: 14 0RF benzonatate 200 mg capsule 200 mg PO TID PRN (Reason: cough) Qty: 30 0RF No Action lisinopril 10 mg tablet 10 mg PO DAILY 90 Days Qty: 90 3RF Xarelto 20 mg tablet 20 mg PO DAILY Qty: 90 3RF diltiazem HCl 180 mg capsule,extended release 24hr 180 mg PO DAILY Qty: 90 3RF atorvastatin 20 mg tablet 20 mg PO BEDTIME multivitamin Tablet 1 tab PO DAILY Referrals: Monique Dill MD [Primary Care Provider] - 1 week Interventions: ED Discharge Assessment Last Done: 10/27/22 13:45 Discharge Date/Time: 10/27/22 13:46
[2022-10-27 12:33] VITALS: PULSE 89; RESP 18; O2SAT 96
[2022-10-27] MEDS: Albuterol/Iprat 2.5/0.5MG 3 ML AMPUL.NEB INHALE (12:33)
[2022-10-27 12:49] VITALS: BP 125/78; PULSE 89; RESP 20; O2SAT 94
[2022-10-27 12:57] LABS: MANUAL DIFF FLAG NO
[2022-10-27 12:58] LABS: Basophils Percent Auto 0.2 % (0-2); Hematocrit 36.9 % (37.0-47.0); Hemoglobin 12.1 g/dl (12.0-16.0); Imm Gran Abs Auto 0.02 X10*3/uL (0.00-0.03); Imm Gran Pct Auto 0.2 % (0.0-0.4); Lymphocytes Absolute Auto 2.9 X10*3/uL (1.2-4.9); Lymphocytes Percent Auto 34.2 % (20-40); Mean Corpuscular HGB Conc 32.8 g/dl (31.0-35.0); Mean Corpuscular Hemoglobin 29.6 pg (27.0-33.0); Mean Corpuscular Volume 90.2 fL (80.0-98.0); Mean Platelet Volume 8.5 fL (9.4-12.3); Monocytes Absolute Auto 0.7 X10*3/uL (0.1-1.2); Monocytes Percent Auto 7.7 % (2-11); Neutrophils Absolute Auto 4.9 x10*3/uL (2.0-8.3); Neutrophils Percent Auto 57.7 % (45-73); Platelet Count 338 X10*3/uL (160-400); Red Blood Count 4.09 X10*6/uL (4.20-5.50); Red Cell Distribution Width 13.2 % (11.0-16.0); White Blood Count 8.4 X10*3/uL (4.8-10.8)
[2022-10-27 13:22] LABS: Alanine Aminotransferase 12 U/L (0-31); Albumin Level 3.9 g/dL (3.5-5.0); Alkaline Phosphatase 95 U/L (39-117); Anion Gap 13 (12-20); Aspartate Amino Transferase 12 U/L (5-31); Bilirubin Direct < 0.2 mg/dL (0.0-0.5); Bilirubin Total 0.3 mg/dL (0.0-1.0); Blood Urea Nitrogen 15 mg/dL (9-16); Calcium 9.3 mg/dL (8.4-10.2); Carbon Dioxide 26 mmol/L (22-29); Chloride 108 mmol/L (96-108); Creatinine Clr Calc Pharmacy 63.8; Estimated Glomerular Filt Rate > 60; Glucose Random 117 mg/dL (60-115); Potassium 3.9 mmol/L (3.3-5.1); Sodium 143 mmol/L (135-145); Total Protein 6.7 g/dL (6.5-8.0)
[2022-10-27] MEDS: Benzonatate 100 MG CAPSULE 200 MG PO (13:28)
[2022-10-27 13:29] VITALS: BP 111/56; PULSE 87; RESP 20; O2SAT 96
[2022-10-27 13:34] VITALS: O2SAT 98
== END 2022-10-27 13:46 | disposition home or self-care (01) ==
PROVIDERS: Nurse Practitioner Family; Emergency Provider Emergency Medicine; PCP Internal Medicine
DX: J10.1 Influenza due to other identified influenza virus with other respiratory manifestations (principal); E11.9 Type 2 diabetes mellitus without complications; I10 Essential (primary) hypertension; I48.0 Paroxysmal atrial fibrillation; Z86.73 Personal history of transient ischemic attack (TIA), and cerebral infarction without residual deficits; Z79.01 Long term (current) use of anticoagulants; Z79.02 Long term (current) use of antithrombotics/antiplatelets; Z79.899 Other long term (current) drug therapy
CPT/HCPCS: 36415; 71046; 80048; 80076; 85025; 94640; 99284; 99285

== ENCOUNTER 2022-10-30 07:56 | Outpatient (REF) | payer OTHER, SELFPAY ==
[2022-10-30 09:06] LABS: COVID-19 Test Negative (Negative); IDNOW Serial# 16C4AD1C
== END 2022-10-30 07:57 | disposition home or self-care (01) ==
LOC: HO.LAB 07:56
PROVIDERS: Visit Provider Internal Medicine
DX: Z20.822 Contact with and (suspected) exposure to COVID-19 (principal)
CPT/HCPCS: 87635; C9803

== ENCOUNTER 2022-11-09 07:01 | Outpatient (REF) | payer OTHER, SELFPAY ==
[2022-11-09 08:37] LABS: Influenza A PCR NEGATIVE (Negative); Influenza B PCR NEGATIVE (Negative); Resp Syncy Virus RNA Qual PCR NEGATIVE (Negative); SARS COV2 PCR INHOUSE NEGATIVE (Negative)
== END 2022-11-09 07:02 | disposition home or self-care (01) ==
LOC: HO.LAB 07:01
PROVIDERS: Visit Provider Internal Medicine
DX: Z20.822 Contact with and (suspected) exposure to COVID-19 (principal)
CPT/HCPCS: 0241U; C9803

== ENCOUNTER → 2022-11-26 12:37 | Outpatient (BNVA) | payer OTHER, SELFPAY | PROVIDERS: PCP Internal Medicine; Referring Provider Internal Medicine; Visit Provider Internal Medicine | DX: Z13.89 Encounter for screening for other disorder (principal) ==

== ENCOUNTER 2022-11-28 07:36 | Outpatient (REF) | payer OTHER, SELFPAY ==
--- NOTE | ~2022-11-28 | MM_ITS ---
EXAMINATION: MM SCREENING DIGITAL BREAST TOMOSYNTHESIS, BILATERAL CLINICAL INFORMATION: Screening. Asymptomatic. Prior reduction mammoplasty, 2005. The lifetime risk of breast cancer based on the Tyrer-Cuzick Model is 5%. COMPARISON: Multiple prior mammography exams, most recent 11/20/2021 TECHNIQUE: Digital breast tomosynthesis is performed in both the craniocaudal and mediolateral oblique views along with computer-aided detection (CAD). Synthesized 2D images are generated from the tomosynthesis. Additional right MLO view is provided. FINDINGS: There are scattered areas of fibroglandular density (ACR BI-RADS breast composition Category b). There are no significant masses, abnormal calcifications, or other abnormalities. No architectural abnormality or developing density or significant change from prior studies. There are minor stable asymmetries and minor scarring and benign calcifications consistent with the remote reduction mammoplasty. MM/MM tomosynthesis screening BI IMPRESSION: No mammographic evidence of malignancy. ASSESSMENT: BI-RADS 2: Benign RECOMMENDATION: Routine annual mammography screening. This patient's information was entered into a reminder system with a target due date for their next mammogram.
== END 2022-11-28 07:37 | disposition home or self-care (01) ==
LOC: HO.MAMMO 07:36
PROVIDERS: PCP Internal Medicine; Visit Provider Internal Medicine
DX: Z12.31 Encounter for screening mammogram for malignant neoplasm of breast (principal)
CPT/HCPCS: 77063; 77067

== ENCOUNTER → 2022-12-04 13:57 | Outpatient (REF) | payer OTHER, SELFPAY ==
--- NOTE | 2022-12-04 14:05 | HM_ITS ---
* Total monitoring time 30 days. Wear time 24 days. * Monitoring days 12/05/2022 to 01/02/2023. * Underlying rhythm is sinus. Average ventricular rate 83/Min. Range 50 to 166/Min. * Sinus tachycardia seen. Possible episode of atrial tachycardia in 1 strip. Possible very brief atrial fibrillation but lasting only a couple of seconds in other strip. Overall, no sustained arrhythmias. * Palpitations reported by patient correlate with sinus rhythm and sinus tachycardia. MTDD
== END ==
LOC: HO.CARD 13:57
PROVIDERS: Visit Provider Internal Medicine
DX: I48.0 Paroxysmal atrial fibrillation (principal)
CPT/HCPCS: 93270

== ENCOUNTER 2022-12-27 12:01 | Outpatient (REF) | payer OTHER, SELFPAY ==
[2022-12-27 12:26] LABS: COVID-19 Test Negative (Negative); IDNOW Serial# BCCEAD1C
== END 2022-12-27 12:02 | disposition home or self-care (01) ==
LOC: HO.LAB 12:01
PROVIDERS: Visit Provider Internal Medicine
DX: Z20.822 Contact with and (suspected) exposure to COVID-19 (principal)
CPT/HCPCS: 87635; C9803

== ENCOUNTER 2023-01-22 11:06 | Outpatient (REF) | payer OTHER, SELFPAY ==
[2023-01-22 11:43] LABS: COVID-19 Test Negative (Negative); IDNOW Serial# BCCEAD1C
== END 2023-01-22 11:07 | disposition home or self-care (01) ==
LOC: HO.LAB 11:06
PROVIDERS: PCP Internal Medicine; Visit Provider Internal Medicine
DX: Z20.822 Contact with and (suspected) exposure to COVID-19 (principal); R05.9 Cough, unspecified
CPT/HCPCS: 87635

== ENCOUNTER → 2023-01-24 08:43 | Outpatient (BNVA) | payer OTHER, SELFPAY | PROVIDERS: PCP Internal Medicine; Referring Provider Internal Medicine; Visit Provider Internal Medicine | DX: Z13.89 Encounter for screening for other disorder (principal) ==

== ENCOUNTER 2023-02-01 06:35 | Outpatient (REF) | payer OTHER, SELFPAY ==
--- NOTE | ~2023-02-01 | XR_ITS ---
EXAMINATION: XR HIP, LEFT CLINICAL INFORMATION: OA changes. COMPARISON: None available. TECHNIQUE: Two views of the left hip. FINDINGS: There is mild loss of left hip joint space. No bony erosive changes. No acute fracture or dislocation. The soft tissues are normal. XR/XR hip LT min 2V IMPRESSION: Mild degenerative changes left hip joint. No visible acute fracture or dislocation seen.
== END 2023-02-01 06:36 | disposition home or self-care (01) ==
LOC: HO.XRAY 06:35
PROVIDERS: PCP Internal Medicine; Visit Provider Internal Medicine
DX: M16.12 Unilateral primary osteoarthritis, left hip (principal)
CPT/HCPCS: 73502

== ENCOUNTER 2023-02-04 10:37 | Outpatient (REF) | payer OTHER, SELFPAY ==
--- NOTE | ~2023-02-04 | XR_ITS ---
EXAMINATION: 1. RADIOGRAPHS STANDING AP KNEES 2. LATERAL AND PATELLAR SUNRISE RADIOGRAPHS OF THE RIGHT KNEE CLINICAL INFORMATION: Knee pain COMPARISON: None TECHNIQUE: Standing AP view of both knees in addition to lateral and patellar sunrise views of the right knee. FINDINGS: Right knee: No fracture or dislocation of the right knee. Tiny right-sided suprapatellar joint effusion. Joint spaces of the right knee are maintained. Tiny tricompartmental marginal osteophytes of the right knee. Left knee: Frontal view of the left knee is grossly unremarkable. Medial and lateral joint space heights appear maintained. XR/XR knee standing BI IMPRESSION: Minimal degenerative changes of the right knee with a tiny suprapatellar joint effusion.
--- NOTE | ~2023-02-04 | XR_ITS ---
EXAMINATION: 1. RADIOGRAPHS STANDING AP KNEES 2. LATERAL AND PATELLAR SUNRISE RADIOGRAPHS OF THE RIGHT KNEE CLINICAL INFORMATION: Knee pain COMPARISON: None TECHNIQUE: Standing AP view of both knees in addition to lateral and patellar sunrise views of the right knee. FINDINGS: Right knee: No fracture or dislocation of the right knee. Tiny right-sided suprapatellar joint effusion. Joint spaces of the right knee are maintained. Tiny tricompartmental marginal osteophytes of the right knee. Left knee: Frontal view of the left knee is grossly unremarkable. Medial and lateral joint space heights appear maintained. XR/XR knee RT 2V IMPRESSION: Minimal degenerative changes of the right knee with a tiny suprapatellar joint effusion.
== END 2023-02-04 10:38 | disposition home or self-care (01) ==
LOC: HO.HOSX 10:37
PROVIDERS: Visit Provider Physician Assistant
DX: M17.12 Unilateral primary osteoarthritis, left knee (principal); M25.561 Pain in right knee
CPT/HCPCS: 73560; 73565

== ENCOUNTER 2023-02-23 08:22 | Outpatient (REF) | payer OTHER, SELFPAY ==
[2023-02-23 08:38] LABS: MANUAL DIFF FLAG NO
[2023-02-23 08:44] LABS: Basophils Percent Auto 0.6 % (0-2); Eosinophils Absolute Auto 0.1 X10*3/uL (0.0-0.4); Eosinophils Percent Auto 1.6 % (0-4); Hematocrit 39.5 % (37.0-47.0); Hemoglobin 12.7 g/dl (12.0-16.0); Imm Gran Abs Auto 0.01 X10*3/uL (0.00-0.03); Imm Gran Pct Auto 0.1 % (0.0-0.4); Lymphocytes Absolute Auto 3.1 X10*3/uL (1.2-4.9); Lymphocytes Percent Auto 46.2 % (20-40); Mean Corpuscular HGB Conc 32.2 g/dl (31.0-35.0); Mean Corpuscular Hemoglobin 29.3 pg (27.0-33.0); Mean Corpuscular Volume 91.2 fL (80.0-98.0); Mean Platelet Volume 8.8 fL (9.4-12.3); Monocytes Absolute Auto 0.5 X10*3/uL (0.1-1.2); Monocytes Percent Auto 6.9 % (2-11); Neutrophils Percent Auto 44.6 % (45-73); Platelet Count 338 X10*3/uL (160-400); Red Blood Count 4.33 X10*6/uL (4.20-5.50); Red Cell Distribution Width 12.5 % (11.0-16.0); White Blood Count 6.7 X10*3/uL (4.8-10.8)
[2023-02-23 09:19] LABS: Alanine Aminotransferase 16 U/L (0-31); Albumin Level 4.1 g/dL (3.5-5.0); Alkaline Phosphatase 93 U/L (39-117); Anion Gap 12 (12-20); Aspartate Amino Transferase 14 U/L (5-31); Bilirubin Total 0.6 mg/dL (0.0-1.0); Blood Urea Nitrogen 10 mg/dL (9-16); Calcium 9.3 mg/dL (8.4-10.2); Carbon Dioxide 25 mmol/L (22-29); Chloride 108 mmol/L (96-108); Cholesterol 166 mg/dL; Estimated Glomerular Filt Rate > 60; Glucose Random 107 mg/dL (60-115); HDL Cholesterol 55 mg/dL; LDL Cholesterol Calculated 100 mg/dl; Potassium 4.1 mmol/L (3.3-5.1); Sodium 141 mmol/L (135-145); Total Protein 6.9 g/dL (6.5-8.0); Triglycerides 58 mg/dL
[2023-02-23 09:33] LABS: Thyroid Stimulating Hormone 1.43 uIU/mL (0.32-4.0)
== END 2023-02-23 08:23 | disposition home or self-care (01) ==
LOC: HO.LAB 08:22
PROVIDERS: PCP Internal Medicine; Visit Provider Internal Medicine
DX: Z00.00 Encounter for general adult medical examination without abnormal findings (principal); I10 Essential (primary) hypertension; E78.00 Pure hypercholesterolemia, unspecified; M25.552 Pain in left hip
CPT/HCPCS: 36415; 80053; 80061; 84443; 85025

== ENCOUNTER 2023-08-01 08:24 | Outpatient (AMB) | payer OTHER, SELFPAY ==
--- NOTE | 2023-08-01 08:27 | MHC.OFFVIS ---
Intake Vital Signs 08/01/23 08:28 Height 4 ft 11 in Weight 163 lb 2.273 oz BMI 32.9 BP 136/72 Blood Pressure Location Lt brachial Position Sitting Pulse 79 Intake Visit Reasons: 6 mth f/up Intake Note: 6 month follow up Angle Bender Required: No Accompanied by: Self / Same As Patient Allergies amoxicillin [AMOXICILLIN] Allergy (Intermediate, Verified 08/01/23 08:27) RASH Medication List - Last Reconciled 08/01/23 by Guillermo Torres MD atorvastatin 20 mg PO BEDTIME diltiazem HCl 180 mg PO DAILY metoprolol succinate ER (Toprol XL) 50 mg PO DAILY multivitamin 1 tab PO DAILY rivaroxaban (Xarelto) 20 mg PO DAILY HPI HPI Comments History of Present Illness Details Marlene returns for follow-up regarding atrial fibrillation. To recall, in 2016, she was admitted for the same. Resolved after using flecainide. Subsequently, was doing okay but then again having atrial fibrillation in the last couple of years. Eventually, had ablation for the same. Few months back, she had 1 further hospitalization to [facility] emergency room with palpitations. At that time, described to have atrial flutter with rapid rate. She was treated in the emergency room and then discharged. Patient states that she still keeps getting palpitations. She was supposed to follow-up with EP but missed another appointment. [facility] Medical History Asthma Diabetes mellitus Essential hypertension Hypertension Internal and external bleeding hemorrhoids Morbid obesity PAF (paroxysmal atrial fibrillation) PAT (paroxysmal atrial tachycardia) Rib pain on left side TIA (transient ischemic attack) Surgical History History of abdominoplasty (~2006) History of removal of laparoscopic gastric banding device (~12/2018) Hx of laparoscopic gastric banding (~2010) History of bilateral breast reduction surgery (~2005) History of tubal ligation History of hysterectomy (~12/2014) Family History Maternal Aunt History of colon cancer Paternal Aunt History of breast cancer Social History Alcohol intake: never Patient Tobacco Use Status: Never used Tobacco Review of Systems Const Denies weakness ENT Denies dizziness Card Denies chest pain, Denies chest pain with activity, Denies syncope, Denies rapid heart rate, Denies pedal edema, Denies edema, Denies leg edema, Denies lightheadedness, Denies palpitations, Denies dyspnea, Denies dyspnea on exertion and Denies orthopnea Resp Denies cough, Denies dyspnea and Denies dyspnea on exertion GI Denies hematochezia and Denies change in stool character Musc Denies abnormal gait, Denies muscle cramps, Denies muscle weakness, Denies numbness, Denies radiating pain into limb and Denies tingling Neuro Denies abnormal gait, Denies dizziness, Denies syncope, Denies numbness, Denies tingling and Denies weakness Endo Denies palpitations Physical Exam Vital Signs: Last Vital Signs Pulse 79 08/01/23 08:28 BP 136/72 08/01/23 08:28 BMI result Body Mass Index 32.9 Const General: comfortable and no acute distress Orientation/consciousness: patient oriented x3 HEENT Other: Unremarkable Head: Yes normal to inspection Neck Neck: Yes normal visual inspection Chest Chest palpation & inspection: normal inspection of the chest Resp Auscultation: clear to auscultation bilaterally Cardio Palpation: normal PMI Heart sounds: S1 normal heart sound present, S2 normal heart sound present, no gallops, no murmurs and no rubs GI Palpation (GI): Soft to palpation Back/Spine/Pelvis Other: unremarkable Skin General skin exam: no rashes or lesions noted Neuro General: patient oriented x3 Extrem General: Yes normal to inspection Psych Mental Status: mental status grossly normal Assessment & Plan Assessment & Plan (1) PAF (paroxysmal atrial fibrillation): Code(s): I48.0 - Paroxysmal atrial fibrillation Plan: Status post ablation for the same. Per ER note, atrial flutter with rapid rate and patient still gets some palpitations intermittently. 30 day monitoring shows sinus tachycardia and possible atrial tachycardia versus brief atrial fibrillation. She is already on metoprolol as well as diltiazem. Increase diltiazem dosing. Referred back to Dr. Perez for evaluation. Obtain echocardiogram for left atrial size, in case she needs another ablation. (2) PAT (paroxysmal atrial tachycardia): Code(s): I47.1 - Supraventricular tachycardia Plan: Diltiazem with metoprolol as above. (3) Essential hypertension: Code(s): I10 - Essential (primary) hypertension Plan: In the past, was on lisinopril. No changes made now. Stable. (4) TIA (transient ischemic attack): Code(s): G45.9 - Transient cerebral ischemic attack, unspecified Plan: Apparently happened while she was in [place] in 2014. At that time, had slurring of speech but resolved completely. Not clear if it is TIA. Hence been on long-term anticoagulation. Orders: Orders CA echo transthoracic complete Today I47.1 - Supraventricular tachycardia, I48.0 - Paroxysmal atrial fibrillation Medications: New diltiazem HCl 240 mg PO DAILY 90 caps 3RF Discontinued diltiazem HCl Discontinued Reason: Doctor's Order 180 mg PO DAILY 90 caps 3RF Coding Level of Care Code Est Pt Level 4 (86753) Diagnoses PAF (paroxysmal atrial fibrillation) I48.0 PAT (paroxysmal atrial tachycardia) I47.1 Essential hypertension I10 TIA (transient ischemic attack) G45.9
[2023-08-01 08:28] VITALS: BP 136/72; PULSE 79; BMI 32.9
== END 2023-08-01 08:39 | disposition home or self-care (01) ==
PROVIDERS: Visit Provider Internal Medicine
DX: I48.0 Paroxysmal atrial fibrillation (principal); I47.1 Supraventricular tachycardia; I10 Essential (primary) hypertension; G45.9 Transient cerebral ischemic attack, unspecified
CPT/HCPCS: 99214

== ENCOUNTER → 2023-08-01 08:24 | Outpatient (BNVA) | payer OTHER, SELFPAY | PROVIDERS: Visit Provider Internal Medicine ==

== ENCOUNTER → 2023-08-30 15:00 | Outpatient (REF) | payer OTHER, SELFPAY ==
--- NOTE | 2023-08-30 15:05 | CA_ITS ---
Transthoracic Echocardiogram Patient (Last, First, Middle): Marlene Hernandez, Gender: Female Date of : 1965 Age: 58 Procedure Date: 08/30/2023 Procedure Type: Transthoracic Echocardiogram Location: OP Height: 149.86 cm Weight: 73.48 kg BSA: 1.69 m2 Heart Rate: 84 bpm BP: 136 / 72 mmHg Retail Salesworker: LUIS Referring MD: Guillermo Torres MD Director Of Safety And Security: Radu Lane MD Symptoms: I47.1 - Supraventricular tachycardia Study Quality: Adequate ECG Rhythm: Sinus Conclusions: - Essentially normal study Findings Left Ventricle Normal left ventricular size, thickness, and systolic function. The visually estimated ejection fraction is between 60-65%. Diastolic function is normal for age. Right Ventricle Normal right ventricular cavity size and systolic function. Atria Both atria are normal in size. There is an interatrial septal aneurysm seen bowing to the right. Interatrial shunt cannot be excluded. Aortic Valve Normal aortic valve structure and function. There is no aortic valve stenosis. There is no aortic valve regurgitation. Mitral Valve Normal mitral valve structure and function. There is no mitral valve regurgitation. There is no mitral valve stenosis. Pulmonic Valve The pulmonic valve is likely normal. Tricuspid Valve Normal tricuspid valve structure. There is trace tricuspid valve regurgitation. The right ventricular systolic pressure is normal. The right ventricular systolic pressure is 23 mmHg. Normal right atrial pressure. There is no evidence of pulmonary hypertension. Great Vessels All visible segments of the aorta are normal in size. The pulmonary artery was not well visualized. Venous The inferior vena cava is normal in size and collapses greater than 50% with inspiration. Pericardium/Pleural There is no evidence of pericardial effusion. Prior Study Comparison No significant change compared to prior study dated: 10/03/2020. Measurements 2D Linear Measurements IVSd: 1.01 0.6-0.9/0.6-1.0 cm LVIDd: 4.36 3.9-5.3/4.2-5.9 cm LVIDd Index: 2.58 2.4-3.2/2.2-3.1 cm/m2 LVIDs: 2.94 2.0-3.6 cm LVPWd: 0.96 0.7-1.1 cm LA Diam: 3.60 2.7-3.8/3.0-4.0 cm LAIDs Index: 2.13 1.5-2.3 cm/m2 LV Mass: 177.58 67-162/88-224 g LV Mass Index: 105.08 43-95/49-115 g/m2 LVOT Diam: 1.90 3.0+(-)1.3 cm 2D Systolic Function EF 2C: 74.80 >55% Mitral Valve MV Pk E: 0.83 MV PK A: 0.56 MV Decel Time: 192.00 E/A: 1.50 E'Lateral: 8.16 E'Medial: 5.87 E/E' Med: 14.20 E/E' Lat: 10.20 PHT: 56.00 MVA PHT: 3.93 Decel [place]: 4.35 Aortic Valve AoV Pk Jeremiah: 1.70 AoV Pk Grad: 12.00 NIRAJ: 2.06 LVOT LVOT Pk Jeremiah: 1.27 LVOT Mn Jeremiah: 0.84 LVOT VTI: 0.24 LVOT Pk Grad: 6.00 LVOT Mn Grad: 3.00 LVOT Diam: 1.90 LVOT Area: 2.84 Diastolic Function MV Pk E: 0.83 MV Pk A: 0.56 E/A: 1.50 E'Medial: 5.87 E/E' Med: 14.20 E' Laterial: 8.16 E/E' Lat: 10.20 Right Ventricle TAPSE (mm): 24.30 TVS' Jeremiah: 11.70 Tricuspid Valve TR Pk Jeremiah: 2.26 TR Pk Grad: 20.00 RA Press: 3.00 RVSP: 23.00 Great Vessels Aorta Sinus of Valsalva: 2.80 2.0-3.5 cm Ao Asc: 3.40 2.1-3.4 cm Pulmonary Veins Pulm Vein S/D 0.60 Pulmonary Valve PV Pk Jeremiah: 1.11 Peak PV Grad: 5.00 Updated in Other Vendor System with Status of Final Radu Lane MD electronically signed on 08/31/2023 12:35:30 PM with status of Final
== END ==
LOC: HO.CARD 15:00
PROVIDERS: PCP Internal Medicine; Visit Provider Internal Medicine
DX: I48.0 Paroxysmal atrial fibrillation (principal); I47.10 Supraventricular tachycardia, unspecified
CPT/HCPCS: 93306

== ENCOUNTER → 2023-08-30 15:05 | Outpatient (BNV) | payer OTHER, SELFPAY | PROVIDERS: PCP Internal Medicine; Visit Provider Internal Medicine Cardiovascular Disease | DX: I48.0 Paroxysmal atrial fibrillation (principal) | CPT/HCPCS: 93306 ==

== ENCOUNTER 2023-09-04 10:05 | Emergency (ER) | payer OTHER, SELFPAY ==
--- NOTE | 2023-09-04 12:40 | PC.NURSE ---
PT CALLED, UPSET BECAUSE PT'S BEING BROUGHT BACK BEFORE HER. I TRIED TO EXPLAIN THAT THERE'S A MINOR CARE/ REG ED. PT WOULD NOT LISTEN, STATED SHE'S CALLING'[facility]'.
== END 2023-09-04 12:32 | disposition left against medical advice (07) ==
PROVIDERS: Emergency Provider Emergency Medicine; PCP Internal Medicine
DX: U07.1 COVID-19 (principal); R07.89 Other chest pain; Z53.21 Procedure and treatment not carried out due to patient leaving prior to being seen by health care provider

== ENCOUNTER 2024-02-03 08:20 | Outpatient (AMB) | payer OTHER, SELFPAY ==
[2024-02-03 08:25] VITALS: BP 130/74; PULSE 79; O2SAT 97; BMI 35.3
--- NOTE | 2024-02-03 08:25 | A.OFFVIS_ITS ---
Vital Signs 02/03/24 08:25 Height 4 ft 11 in Weight 174 lb 9.698 oz BMI 35.3 BP 130/74 Blood Pressure Location Lt brachial Position Sitting Pulse 79 Pulse Source Pulse Oximeter Pulse Oximetry (%) 97 Intake Visit Reasons: 6 mth fu [employer] Required: No Accompanied by: Self / Same As Patient Allergies amoxicillin [AMOXICILLIN] Allergy (Intermediate, Verified 08/01/23 08:27) RASH Medication List - Last Reconciled 02/03/24 by Guillermo Torres MD atorvastatin 20 mg PO BEDTIME metoprolol succinate ER (Toprol XL) 50 mg PO DAILY multivitamin 1 tab PO DAILY rivaroxaban (Xarelto) 20 mg PO DAILY HPI Comments Details: Marlene returns for follow-up regarding atrial fibrillation. To recall, in 2016, she was admitted for the same. Resolved after using fl ecainide. Subsequently, was doing okay but then again having atrial fibrillation in the last couple of years. Eventually, had ablation for the same. Few months back, she had 1 further hospitalization to [facility] emergency room with palpitations. At that time, described to have atrial flutter with rapid rate. She was treated in the emergency room and then discharged. Recently seen EP and she had 1 further ablation. After that, she still states palpitations are not completely gone. Not clear if it is just anxiety or she truly has anything. [facility] Medical History Asthma Diabetes mellitus Essential hypertension Hypertension Internal and external bleeding hemorrhoids Morbid obesity PAF (paroxysmal atrial fibrillation) PAT (paroxysmal atrial tachycardia) Rib pain on left side TIA (transient ischemic attack) Surgical History History of abdominoplasty (~2006) History of removal of laparoscopic gastric banding device (~12/2018) Hx of laparoscopic gastric banding (~2010) History of bilateral breast reduction surgery (~2005) History of tubal ligation History of hysterectomy (~12/2014) Family History Maternal Aunt History of colon cancer Paternal Aunt History of breast cancer Social History Alcohol intake: never Patient Tobacco Use Status: Never used Tobacco Review of Systems Const Denies chills, Denies fatigue, Denies fever(s), Denies frequent falls, Denies weakness, Denies weight gain and Denies weight loss ENT Denies dizziness Card Denies chest pain, Denies leg edema, Denies lightheadedness, Denies palpitations, Denies dyspnea and Denies dyspnea on exertion Resp Denies cough, Denies dyspnea and Denies dyspnea on exertion GI Denies hematochezia Musc Denies abnormal gait, Denies muscle weakness, Denies numbness, Denies radiating pain into limb and Denies tingling Neuro Denies abnormal gait, Denies dizziness, Denies frequent falls, Denies numbness, Denies tingling and Denies weakness Endo Denies fatigue and Denies palpitations Physical Exam Vital Signs: Last Vital Signs Pulse 79 02/03/24 08:25 BP 130/74 02/03/24 08:25 Pulse Ox 97 02/03/24 08:25 BMI result Body Mass Index 35.3 Const General: comfortable and no acute distress Orientation/consciousness: patient oriented x3 HEENT Other: Unremarkable Head: Yes normal to inspection Neck Neck: Yes normal visual inspection Chest Chest palpation & inspection: normal inspection of the chest Resp Auscultation: clear to auscultation bilaterally Cardio Palpation: normal PMI Heart sounds: S1 normal heart sound present, S2 normal heart sound present, no gallops, no murmurs and no rubs GI Palpation (GI): Soft to palpation Back/Spine/Pelvis Other: unremarkable Skin General skin exam: no rashes or lesions noted Neuro General: patient oriented x3 Extrem General: Yes normal to inspection Psych Mental Status: mental status grossly normal Assessment & Plan Assessment & Plan (1) PAF (paroxysmal atrial fibrillation): Code(s): I48.0 - Paroxysmal atrial fibrillation Category: Medical Plan: Status post atrial fibrillation ablation in 2020. Repeat ablation in November 2023, but need to get that up note. As she is still noticing some palpitations, we can repeat a Holter monitor. In the past, she was on both diltiazem as well as metoprolol but current list only has metoprolol. We can review once we have the Holter findings. (2) PAT (paroxysmal atrial tachycardia): Code(s): I47.1 - Supraventricular tachycardia Category: Medical Plan: No specific management. Same as in paroxysmal atrial fibrillation. (3) Essential hypertension: Code(s): I10 - Essential (primary) hypertension Category: Medical Plan: Stable. No changes. (4) TIA (transient ischemic attack): Code(s): G45.9 - Transient cerebral ischemic attack, unspecified Category: Medical Plan: Apparently happened while she was in [place] in 2014. At that time, had slurring of speech but resolved completely. Not clear if it is TIA. Hence been on long-term anticoagulation. Orders: Orders ECG 14 day holter monitor Today I48.0 - Paroxysmal atrial fibrillation, R00.2 - Palpitations Coding Level of Care Code Est Pt Level 4 (24252) Diagnoses PAF (paroxysmal atrial fibrillation) I48.0 PAT (paroxysmal atrial tachycardia) I47.1 Essential hypertension I10 TIA (transient ischemic attack) G45.9
== END 2024-02-03 08:42 | disposition home or self-care (01) ==
PROVIDERS: PCP Internal Medicine; Visit Provider Internal Medicine
DX: I48.0 Paroxysmal atrial fibrillation (principal); I47.10 Supraventricular tachycardia, unspecified; I10 Essential (primary) hypertension; G45.9 Transient cerebral ischemic attack, unspecified
CPT/HCPCS: 99214

== ENCOUNTER → 2024-02-03 08:20 | Outpatient (BNVA) | payer OTHER, SELFPAY | PROVIDERS: PCP Internal Medicine; Visit Provider Internal Medicine ==

== ENCOUNTER → 2024-02-10 08:15 | Outpatient (BNV) | payer OTHER, SELFPAY | PROVIDERS: PCP Internal Medicine; Visit Provider Radiology Diagnostic Radiology | DX: Z12.31 Encounter for screening mammogram for malignant neoplasm of breast (principal) | CPT/HCPCS: 77063; 77067 ==

== ENCOUNTER 2024-02-10 08:20 | Outpatient (REF) | payer OTHER, SELFPAY ==
--- NOTE | ~2024-02-10 | MM_ITS ---
EXAMINATION: MM SCREENING DIGITAL BREAST TOMOSYNTHESIS, BILATERAL CLINICAL INFORMATION: Screening. Asymptomatic. The patient is status post bilateral breast reduction. COMPARISON: Mammography: This study is compared with prior exams dating back to 2018. TECHNIQUE: Digital breast tomosynthesis is performed in both the craniocaudal and mediolateral oblique views along with computer-aided detection (CAD). Synthesized 2D images are generated from the tomosynthesis. FINDINGS: There are scattered areas of fibroglandular density (ACR BI-RADS breast composition Category b). There are no significant masses, abnormal calcifications, or other abnormalities. Post reduction changes are present. MM/MM tomosynthesis screening BI IMPRESSION: No mammographic evidence of malignancy. ASSESSMENT: BI-RADS BI-RADS 2 - Benign Findings RECOMMENDATION: Routine annual mammography screening. 1 year F/U This examination should not preclude the clinical evaluation of a suspicious palpable abnormality. This patient's information was entered into a reminder system with a target due date for their next mammogram.
--- NOTE | 2024-02-10 09:00 | HM_ITS ---
* Total monitoring time 2 weeks. * Underlying rhythm is sinus with an average rate of 84/Min. * Rare supraventricular ectopy. * Rare ventricular ectopy. * No significant pauses or AV blocks. * Patient marker used once in association with sinus rhythm. * Diary not submitted. MTDD
== END 2024-02-10 08:21 | disposition home or self-care (01) ==
LOC: HO.MAMMO 08:20
PROVIDERS: PCP Internal Medicine; Visit Provider Internal Medicine
DX: Z12.31 Encounter for screening mammogram for malignant neoplasm of breast (principal); I48.0 Paroxysmal atrial fibrillation; R00.2 Palpitations; Z98.890 Other specified postprocedural states
CPT/HCPCS: 77063; 77067; 93246

== ENCOUNTER → 2024-02-10 09:00 | Outpatient (BNV) | payer OTHER, SELFPAY | PROVIDERS: PCP Internal Medicine; Visit Provider Internal Medicine | DX: I47.10 Supraventricular tachycardia, unspecified (principal) | CPT/HCPCS: 93248 ==

== ENCOUNTER 2024-02-20 08:30 | Outpatient (REF) | payer OTHER, SELFPAY ==
--- NOTE | ~2024-02-20 | XR_ITS ---
EXAMINATION: XR HIP, LEFT CLINICAL INFORMATION: Atraumatic chronic left hip pain COMPARISON: 02/01/2023 TECHNIQUE: Two views of the left hip. FINDINGS: No fracture. Alignment is anatomic. No change very mild left hip joint narrowing. Left SI joint within normal limits. Soft tissues are unremarkable. XR/XR hip LT min 2V IMPRESSION: No acute bony pathology. Stable mild degenerative change left hip.
== END 2024-02-20 08:31 | disposition home or self-care (01) ==
LOC: HO.XRAY 08:30
PROVIDERS: PCP Internal Medicine; Visit Provider Internal Medicine
DX: M16.12 Unilateral primary osteoarthritis, left hip (principal)
CPT/HCPCS: 73502

== ENCOUNTER 2024-04-13 09:21 | Outpatient (AMB) | payer OTHER, SELFPAY ==
[2024-04-13 09:24] VITALS: BP 128/78; PULSE 77; BMI 34.7
--- NOTE | 2024-04-13 09:24 | A.OFFVIS_ITS ---
Vital Signs 04/13/24 09:24 Height 4 ft 11 in Weight 171 lb 15.369 oz BMI 34.7 BP 128/78 Blood Pressure Location Lt brachial Position Sitting Pulse 77 Pulse Source Monitor Intake Visit Reasons: 2m follow up Allergies amoxicillin [AMOXICILLIN] Allergy (Intermediate, Verified 08/01/23 08:27) RASH Medication List - Last Reconciled 04/13/24 by Guillermo Torres MD atorvastatin 20 mg PO BEDTIME metoprolol succinate ER (Toprol XL) 50 mg PO DAILY multivitamin 1 tab PO DAILY rivaroxaban (Xarelto) 20 mg PO DAILY HPI Comments Details: Marlene returns for follow-up regarding atrial fibrillation. To recall, in 2016, she had atrial fibrillation that resolved with flecainide. As she had recurrent episodes, she saw EP and underwent ablation. Then had another ER visit with atrial flutter and rapid rate. Then saw EP and had another ablation in November of this year. Since that time, she states she is doing fine. No major concerns. [facility] Medical History Asthma Diabetes mellitus Essential hypertension Hypertension Internal and external bleeding hemorrhoids Morbid obesity PAF (paroxysmal atrial fibrillation) PAT (paroxysmal atrial tachycardia) Rib pain on left side TIA (transient ischemic attack) Surgical History History of abdominoplasty (~2006) History of removal of laparoscopic gastric banding device (~12/2018) Hx of laparoscopic gastric banding (~2010) History of bilateral breast reduction surgery (~2005) History of tubal ligation History of hysterectomy (~12/2014) Family History Maternal Aunt History of colon cancer Paternal Aunt History of breast cancer Social History Alcohol intake: never Patient Tobacco Use Status: Never used Tobacco Review of Systems Const Denies weakness ENT Denies dizziness Card Denies chest pain, Denies chest pain with activity, Denies syncope, Denies rapid heart rate, Denies pedal edema, Denies edema, Denies leg edema, Denies lightheadedness, Denies palpitations, Denies dyspnea, Denies dyspnea on exertion and Denies orthopnea Resp Denies cough, Denies dyspnea and Denies dyspnea on exertion GI Denies hematochezia and Denies change in stool character Musc Denies abnormal gait, Denies muscle cramps, Denies muscle weakness, Denies numbness, Denies radiating pain into limb and Denies tingling Neuro Denies abnormal gait, Denies dizziness, Denies syncope, Denies numbness, Denies tingling and Denies weakness Endo Denies palpitations Physical Exam Vital Signs: Last Vital Signs Pulse 77 04/13/24 09:24 BP 128/78 04/13/24 09:24 BMI result Body Mass Index 34.7 Const General: comfortable and no acute distress Orientation/consciousness: patient oriented x3 HEENT Other: Unremarkable Head: Yes normal to inspection Neck Neck: Yes normal visual inspection Chest Chest palpation & inspection: normal inspection of the chest Resp Auscultation: clear to auscultation bilaterally Cardio Palpation: normal PMI Heart sounds: S1 normal heart sound present, S2 normal heart sound present, no gallops, no murmurs and no rubs GI Palpation (GI): Soft to palpation Back/Spine/Pelvis Other: unremarkable Skin General skin exam: no rashes or lesions noted Neuro General: patient oriented x3 Extrem General: Yes normal to inspection Psych Mental Status: mental status grossly normal Office Procedures EKG Details: EKG with sinus rhythm at 77/Min; nonspecific ST-T changes in the inferior leads; [place] [id number], Complete Assessment & Plan Assessment & Plan (1) PAF (paroxysmal atrial fibrillation): Code(s): I48.0 - Paroxysmal atrial fibrillation Category: Medical Plan: Status post atrial fibrillation ablation in 2020. Repeat ablation in November 2023. In the most recent Holter, underlying rhythm is sinus with an average rate of 84/Min. Rare ectopy but no significant arrhythmias overall. Patient marker was used in association with sinus rhythm. Overall, she may remain on metoprolol. In the past, she was on diltiazem to but not in her list anymore. Remains on anticoagulation due to history of TIA. (2) PAT (paroxysmal atrial tachycardia): Code(s): I47.1 - Supraventricular tachycardia Category: Medical Plan: No recent issues. Continue beta-blockers. (3) Essential hypertension: Code(s): I10 - Essential (primary) hypertension Category: Medical Plan: Stable. No changes. (4) TIA (transient ischemic attack): Code(s): G45.9 - Transient cerebral ischemic attack, unspecified Category: Medical Plan: Apparently happened while she was in [place] in 2014. At that time, had slurring of speech but resolved completely. Not clear if it is TIA. Hence been on long-term anticoagulation. Coding Level of Care Code Est Pt Level 4 (27588) Diagnoses PAF (paroxysmal atrial fibrillation) I48.0 PAT (paroxysmal atrial tachycardia) I47.1 Essential hypertension I10 TIA (transient ischemic attack) G45.9 CPT Codes EKG - CPT: 60345-[id number], Complete ([id number])
== END 2024-04-13 09:44 | disposition home or self-care (01) ==
PROVIDERS: PCP Internal Medicine; Visit Provider Internal Medicine
DX: I48.0 Paroxysmal atrial fibrillation (principal); I47.10 Supraventricular tachycardia, unspecified; I10 Essential (primary) hypertension; G45.9 Transient cerebral ischemic attack, unspecified
CPT/HCPCS: 93010; 99214

== ENCOUNTER → 2024-04-13 09:21 | Outpatient (BNVA) | payer OTHER, SELFPAY | PROVIDERS: PCP Internal Medicine; Visit Provider Internal Medicine | DX: I48.0 Paroxysmal atrial fibrillation (principal); I47.10 Supraventricular tachycardia, unspecified; I10 Essential (primary) hypertension; Z86.73 Personal history of transient ischemic attack (TIA), and cerebral infarction without residual deficits; Z79.01 Long term (current) use of anticoagulants; Z79.899 Other long term (current) drug therapy | CPT/HCPCS: 93005 ==

== ENCOUNTER 2024-04-21 06:35 | Outpatient (REF) | payer OTHER, SELFPAY ==
--- NOTE | ~2024-04-21 | XR_ITS ---
EXAMINATION: XR LUMBOSACRAL SPINE WITH OBLIQUES CLINICAL INFORMATION: Left back pain radiating to the mid thigh. COMPARISON: Lumbar spine radiographs dated 06/19/2017. TECHNIQUE: AP, both oblique, and lateral views of the lumbar spine. Lateral view of the lumbosacral junction. FINDINGS: The vertebral bodies and posterior elements are normal. The disc spaces are preserved and the vertebral alignment is normal. There is multi-level mild endplate arthropathy. The paraspinal soft tissues are normal. XR/XR lumbar spine 4V min IMPRESSION: 1. No acute fracture or spondylolisthesis is seen. 2. There is no spondylolysis defect. 3. The lumbar disc spaces are well-maintained. 4. There is multi-level mild endplate arthropathy.
== END 2024-04-21 06:36 | disposition home or self-care (01) ==
LOC: HO.XRAY 06:35
PROVIDERS: PCP Internal Medicine; Visit Provider Nurse Practitioner Family
DX: M54.16 Radiculopathy, lumbar region (principal)
CPT/HCPCS: 72110

== ENCOUNTER 2024-07-14 15:34 | Emergency (ER) | payer OTHER, SELFPAY ==
--- NOTE | ~2024-07-14 | XR_ITS ---
EXAMINATION: XR CHEST 2 VIEW CLINICAL INFORMATION: Cough, chest pain COMPARISON: 10/27/2022 TECHNIQUE: PA and lateral views of the chest obtained. FINDINGS: The lungs are clear. There are no pleural effusions. The cardiomediastinal silhouette is normal. XR/XR chest 2V IMPRESSION: No acute cardiopulmonary disease. Electronically signed by: Martinez Escalona MD 07/14/2024 04:29 PM EDT
[2024-07-14 15:59] VITALS: BP 172/91; PULSE 85; RESP 18; TEMP 36.9; O2SAT 98; BMI 35.7
--- NOTE | 2024-07-14 16:03 | ED_ITS ---
HPI - URI/Sore Throat General Chief Complaint: Upper Respiratory Symptoms Stated Complaint: ? +Covid test/Flu like symptoms Time Seen by Provider: 07/14/24 19:25 Source: patient Mode of arrival: ambulatory Limitations: no limitations History of Present Illness ED Provider: DR. Borrego HPI Narrative: This is a [id number]-female, a fib on xarelto, who presents to the ER with complaints of shortness of breath, chest pain, cough, congestion, generalized body ache, and headaches x 2 days. In unequivocal home COVID test. Has had intermittent chest pain as well. VSS. Related Data Home Medications ?Medication ?Instructions ?Recorded ?Confirmed atorvastatin 20 mg tablet 20 mg PO BEDTIME 07/25/20 04/13/24 multivitamin 1 tab PO DAILY 07/25/20 04/13/24 Previous Rx's ?Medication ?Instructions ?Recorded rivaroxaban 20 mg tablet (Xarelto) 20 mg PO DAILY #90 tabs 04/13/24 metoprolol succinate 50 mg 50 mg PO DAILY #90 tabs 05/29/24 tablet,extended release 24 hr (Toprol XL) Allergies Allergy/AdvReac Type Severity Reaction Status Date / Time amoxicillin [AMOXICILLIN] Allergy Intermediate RASH Verified 07/14/24 16:05 Review of Systems 2 Review of Systems: All other systems are reviewed and are negative Constitutional: Reports as per HPI and Reports no additional constitutional complaints Eyes: Reports as per HPI and Reports no additional eye complaints Reports system reviewed and no additional complaints, except as documented Cardiovascular: Reports as per HPI and Reports no additional cardiovascular complaints Respiratory: Reports as per HPI and Reports no additional respiratory complaints Gastrointestinal: Reports as per HPI and Reports no additional gastrointestinal complaints Genitourinary: Reports no additional female genitourinary complaints Musculoskeletal: Reports no additional musculoskeletal complaints Skin/Breast: Reports system reviewed and no additional complaints, except as docu Psychiatric: Reports no additional psychiatric complaints Endocrine: Reports no additional endocrine complaints Hematologic/Lymphatic: Reports no additional hematologic/lymphatic complaints Allergic/Immunologic: Reports no additional allergic/immunologic complaints Reports system reviewed and no additional complaints, except as documented and Reports Abnormal speech present [facility] Past Medical History Medical History Rib pain on left side Essential hypertension TIA (transient ischemic attack) PAT (paroxysmal atrial tachycardia) PAF (paroxysmal atrial fibrillation) Internal and external bleeding hemorrhoids Asthma Hypertension Diabetes mellitus Morbid obesity Surgical History History of abdominoplasty (~2006) History of removal of laparoscopic gastric banding device (~12/2018) Hx of laparoscopic gastric banding (~2010) History of bilateral breast reduction surgery (~2005) History of tubal ligation History of hysterectomy (~12/2014) Family History Family History Maternal Aunt History of colon cancer Paternal Aunt History of breast cancer Social History Social History Alcohol intake: never Patient Tobacco Use Status: Never used Tobacco Advance Directives: No Advance Directives Information Provided: No Physical Exam 2 Vital Signs: Vital Signs: Last Vital Signs Temp 98.5 F 07/14/24 19:50 Pulse 81 07/14/24 19:50 Resp 16 07/14/24 19:50 BP 171/92 H 07/14/24 19:50 Pulse Ox 100 07/14/24 19:50 O2 Del Method Room Air 07/14/24 19:50 BMI result Body Mass Index 35.7 Vital signs have been reviewed and appear to be correct. Blood pressure elevated. Heart rate normal. Respiratory rate normal. Temperature normal. Oxygen saturation normal. Appearance: Alert. Oriented X3. No acute distress. Head: Normal external exam. Normocephalic. Atraumatic. No Angela signs noted. No raccoon eyes noted Eyes: PERRLA. EOMI. Conjunctiva and sclera normal. Eyelids normal. ENT: TM's Normal. Pharynx normal. Uvula midline. Moist mucous membranes. No trismus noted. No drooling noted. No muffled voice noted. Neck: Normal inspection. Neck supple. FROM. No adenopathy. Thyroid Normal. No meningeal signs. No neck mass noted. CVS: Normal heart rate and rhythm. Heart sound normal. No murmurs noted. Pulses normal throughout. Respiratory: No respiratory distress. Painless inspiration. Breath sounds normal. No wheezes/rales/rhonchi noted. Chest nontender. No accessory muscle usage noted or decreased air movement noted. Abdomen: Soft and nontender. Bowel sounds normal in all 4 quadrants. No distention noted. No organomegaly noted. No visible injury noted. Back: No CVA tenderness. Full range of motion noted. Skin: Skin warm and dry. Normal skin color. Normal skin turgor. No rashes/lesions/lacerations noted. Extremities: No lower extremity edema. Extremities exhibit normal range of motion. Extremities nontender. Neuro: Oriented X 3. Cranial nerve exam: II-XII are grossly intact No motor deficit. No sensory deficit. Reflexes normal. Course Course Course Narrative: This is an RME: Additional HPI, ROS, PE not included below will be deferred to primary provider. RME assessment and note performed by: Radha Burt PA-C Plan: Labs, EKG, CXR, further ER eval needed Reevaluation(s) Reevaluation #1: Two days of viral symptoms, patient here with stable vital signs, negative COVID test, chest x-ray is unremarkable, EKG is unremarkable. Will discharge to follow-up with PCP. Time: 19:55 Medical Decision Making Differential Diagnosis Differential Diagnoses: The differential diagnosis associated with the presentation includes (ACS, electrolyte derangement, severe anemia, AFib, pneumonia, pneumothorax, pleural effusion, viral upper respiratory infection.) Admission/Observation Consideration of admission/observation: Escalation of care including admission/observation considered Lab Data MDM Lab Attestation statement: I reviewed the patient's lab results. 07/14/24 17:21 07/14/24 17:21 Labs: Lab Results 07/14/24 Range/Units 17:21 WBC 6.4 (4.8-10.8) X10*3/uL RBC 4.48 (4.20-5.50) X10*6/uL Hgb 13.2 (12.0-16.0) g/dl Hct 40.4 (37.0-47.0) % MCV 90.2 (80.0-98.0) fL MCH 29.5 (27.0-33.0) pg MCHC 32.7 (31.0-35.0) g/dl RDW 13.5 (11.0-16.0) % Plt Count 321 (160-400) X10*3/uL MPV 8.9 L (9.4-12.3) fL Immature Gran % (Auto) 0.2 (0.0-0.4) % Neut % (Auto) 47.7 (45-73) % Lymph % (Auto) 41.5 H (20-40) % [place] % (Auto) 7.0 (2-11) % Eos % (Auto) 2.8 (0-4) % Baso % (Auto) 0.8 (0-2) % Lymph # (Auto) 2.7 (1.2-4.9) X10*3/uL [place] # (Auto) 0.5 (0.1-1.2) X10*3/uL Eos # (Auto) 0.2 (0.0-0.4) X10*3/uL Baso # (Auto) 0.1 (0.0-0.2) X10*3/uL Abs Immat Gran (auto) 0.01 (0.00-0.03) X10*3/uL Absolute Neuts (auto) 3.1 (2.0-8.3) x10*3/uL Absolute Nucleated RBC 0.000 (0.0-0.012) X10*3/uL Nucleated RBC % (auto) 0.0 (0.0-0.2) /100WBC Sodium 143 (135-145) mmol/L Potassium 3.7 (3.3-5.1) mmol/L Chloride 108 (96-108) mmol/L Carbon Dioxide 26 (22-29) mmol/L Anion Gap 13 (12-20) BUN 8 L (9-16) mg/dL Creatinine 0.78 (0.5-1.4) mg/dL Estim Creat Clear Calc 71.9 Estimated GFR > 60 Random Glucose 110 (60-115) mg/dL Calcium 9.6 (8.4-10.2) mg/dL Magnesium 2.1 (1.6-2.6) mg/dL Total Bilirubin 0.2 (0.0-1.0) mg/dL Direct Bilirubin < 0.2 (0.0-0.5) mg/dL AST 15 (5-31) U/L ALT 17 (0-31) U/L Alkaline Phosphatase 93 (39-117) U/L Troponin I High Sens < 2.7 (<3.5-17.0) ng/L Total Protein 7.4 (6.5-8.0) g/dL Albumin 4.2 (3.5-5.0) g/dL Influenza Type A (PCR) NEGATIVE (Negative) Influenza Type B (PCR) NEGATIVE (Negative) RSV RNA Qual (PCR) NEGATIVE (Negative) SARS-CoV-2 RNA (RT-PCR) NEGATIVE (Negative) Independent Interpretation I performed an independent interpretation of an: EKG (Normal sinus rhythm at 74 beats per minutes, LVH, no significant change from previous EKG.) and Plain X- Ray (Chest: No acute cardiopulmonary disease.) Radiology Impression Discussion of test interpretation with radiology: I have reviewed the radiologist's reading. Discharge Plan Discharge Clinical Impression: Acute viral syndrome Patient Disposition: Home, Self-Care Instructions: Viral Syndrome (ED) Prescriptions: No Action Xarelto 20 mg tablet 20 mg PO DAILY Qty: 90 3RF metoprolol succinate [Toprol XL] 50 mg tablet extended release 24 hr 50 mg PO DAILY Qty: 90 3RF atorvastatin 20 mg tablet 20 mg PO BEDTIME multivitamin Tablet 1 tab PO DAILY Referrals: Monique Dill MD [Primary Care Provider] - Print Language: Bulgarian
--- NOTE | 2024-07-14 16:05 | ECG_ITS ---
Test Reason : CHEST PAIN Blood Pressure : / mmHG Vent. Rate : 074 BPM Atrial Rate : 074 BPM P-R Int : 130 ms QRS Dur : 080 ms QT Int : 388 ms P-R-T Axes : 018 002 -06 degrees QTc Int : 430 ms Normal sinus rhythm Minimal voltage criteria for LVH, may be normal variant ( R in aVL ) Borderline ECG When compared with ECG of 24-OCT-2022 08:54, T wave amplitude has decreased in Anterior leads Referred By: Radha Burt Electronically Signed By:JAMAR INIGUEZ
[2024-07-14 17:25] LABS: MANUAL DIFF FLAG NO
[2024-07-14 17:29] LABS: Basophils Absolute Auto 0.1 X10*3/uL (0.0-0.2); Basophils Percent Auto 0.8 % (0-2); Eosinophils Absolute Auto 0.2 X10*3/uL (0.0-0.4); Eosinophils Percent Auto 2.8 % (0-4); Hematocrit 40.4 % (37.0-47.0); Hemoglobin 13.2 g/dl (12.0-16.0); Imm Gran Abs Auto 0.01 X10*3/uL (0.00-0.03); Imm Gran Pct Auto 0.2 % (0.0-0.4); Lymphocytes Absolute Auto 2.7 X10*3/uL (1.2-4.9); Lymphocytes Percent Auto 41.5 % (20-40); Mean Corpuscular HGB Conc 32.7 g/dl (31.0-35.0); Mean Corpuscular Hemoglobin 29.5 pg (27.0-33.0); Mean Corpuscular Volume 90.2 fL (80.0-98.0); Mean Platelet Volume 8.9 fL (9.4-12.3); Monocytes Absolute Auto 0.5 X10*3/uL (0.1-1.2); Neutrophils Absolute Auto 3.1 x10*3/uL (2.0-8.3); Neutrophils Percent Auto 47.7 % (45-73); Platelet Count 321 X10*3/uL (160-400); Red Blood Count 4.48 X10*6/uL (4.20-5.50); Red Cell Distribution Width 13.5 % (11.0-16.0); White Blood Count 6.4 X10*3/uL (4.8-10.8)
[2024-07-14 17:42] LABS: Alanine Aminotransferase 17 U/L (0-31); Albumin Level 4.2 g/dL (3.5-5.0); Alkaline Phosphatase 93 U/L (39-117); Anion Gap 13 (12-20); Aspartate Amino Transferase 15 U/L (5-31); Bilirubin Direct < 0.2 mg/dL (0.0-0.5); Bilirubin Total 0.2 mg/dL (0.0-1.0); Blood Urea Nitrogen 8 mg/dL (9-16); Calcium 9.6 mg/dL (8.4-10.2); Carbon Dioxide 26 mmol/L (22-29); Chloride 108 mmol/L (96-108); Creatinine Clr Calc Pharmacy 71.9; Estimated Glomerular Filt Rate > 60; Glucose Random 110 mg/dL (60-115); Magnesium 2.1 mg/dL (1.6-2.6); Potassium 3.7 mmol/L (3.3-5.1); Sodium 143 mmol/L (135-145); Total Protein 7.4 g/dL (6.5-8.0)
[2024-07-14 17:49] LABS: Troponin-I High Sensitivity < 2.7 ng/L (<3.5-17.0)
[2024-07-14 18:04] LABS: Influenza A PCR NEGATIVE (Negative); Influenza B PCR NEGATIVE (Negative); Resp Syncy Virus RNA Qual PCR NEGATIVE (Negative); SARS COV2 PCR INHOUSE NEGATIVE (Negative)
[2024-07-14 19:50] VITALS: BP 171/92; PULSE 81; RESP 16; TEMP 36.9; O2SAT 100
[2024-07-14 19:59] VITALS: BP 171/92; PULSE 81; RESP 16; TEMP 36.9; O2SAT 100
== END 2024-07-14 20:00 | disposition home or self-care (01) ==
PROVIDERS: Physician Assistant Medical; Emergency Provider Emergency Medicine; PCP Internal Medicine
DX: B34.9 Viral infection, unspecified (principal); R07.89 Other chest pain; R06.02 Shortness of breath; M79.10 Myalgia, unspecified site; R51.9 Headache, unspecified; Z03.818 Encounter for observation for suspected exposure to other biological agents ruled out; Z79.899 Other long term (current) drug therapy
CPT/HCPCS: 0241U; 71046; 80048; 80076; 83735; 84484; 85025; 93005; 99283; 99284

== ENCOUNTER → 2024-07-14 16:05 | Outpatient (BNV) | payer OTHER, SELFPAY | PROVIDERS: Emergency Provider Emergency Medicine; PCP Internal Medicine; Visit Provider Internal Medicine | DX: R07.9 Chest pain, unspecified (principal) | CPT/HCPCS: 93010 ==

== ENCOUNTER 2024-07-31 07:08 | Outpatient (REF) | payer OTHER, SELFPAY ==
[2024-07-31 07:21] LABS: MANUAL DIFF FLAG NO
[2024-07-31 08:15] LABS: Basophils Absolute Auto 0.1 X10*3/uL (0.0-0.2); Basophils Percent Auto 0.7 % (0-2); Eosinophils Absolute Auto 0.1 X10*3/uL (0.0-0.4); Hematocrit 40.9 % (37.0-47.0); Hemoglobin 13.8 g/dl (12.0-16.0); Imm Gran Abs Auto 0.01 X10*3/uL (0.00-0.03); Imm Gran Pct Auto 0.1 % (0.0-0.4); Lymphocytes Absolute Auto 3.6 X10*3/uL (1.2-4.9); Lymphocytes Percent Auto 49.9 % (20-40); Mean Corpuscular HGB Conc 33.7 g/dl (31.0-35.0); Mean Corpuscular Hemoglobin 29.7 pg (27.0-33.0); Mean Platelet Volume 9.3 fL (9.4-12.3); Monocytes Absolute Auto 0.4 X10*3/uL (0.1-1.2); Neutrophils Percent Auto 42.3 % (45-73); Platelet Count 343 X10*3/uL (160-400); Red Blood Count 4.65 X10*6/uL (4.20-5.50); Red Cell Distribution Width 13.4 % (11.0-16.0); White Blood Count 7.1 X10*3/uL (4.8-10.8)
[2024-07-31 08:55] LABS: Alanine Aminotransferase 12 U/L (0-31); Albumin Level 4.2 g/dL (3.5-5.0); Anion Gap 15 (12-20); Aspartate Amino Transferase 15 U/L (5-31); Bilirubin Total 0.6 mg/dL (0.0-1.0); Blood Urea Nitrogen 15 mg/dL (9-16); Calcium 9.2 mg/dL (8.4-10.2); Carbon Dioxide 23 mmol/L (22-29); Chloride 108 mmol/L (96-108); Cholesterol 218 mg/dL (<200); Estimated Glomerular Filt Rate > 60; Glucose Random 96 mg/dL (60-115); HDL Cholesterol 56 mg/dL (>40); LDL Cholesterol Calculated 147 mg/dL (<100); Potassium 3.5 mmol/L (3.3-5.1); Sodium 142 mmol/L (135-145); Total Protein 7.5 g/dL (6.5-8.0); Triglycerides 79 mg/dL (<150)
[2024-07-31 09:05] LABS: Alkaline Phosphatase 95 U/L (39-117)
[2024-07-31 09:17] LABS: Thyroid Stimulating Hormone 1.13 uIU/mL (0.32-4.0)
== END 2024-07-31 07:09 | disposition home or self-care (01) ==
LOC: HO.LAB 07:08
PROVIDERS: PCP Internal Medicine; Visit Provider Internal Medicine
DX: Z00.01 Encounter for general adult medical examination with abnormal findings (principal); I10 Essential (primary) hypertension; I48.0 Paroxysmal atrial fibrillation; Z79.01 Long term (current) use of anticoagulants; Z86.73 Personal history of transient ischemic attack (TIA), and cerebral infarction without residual deficits
CPT/HCPCS: 36415; 80053; 80061; 84443; 85025

== ENCOUNTER 2024-09-01 09:20 | Outpatient (REF) | payer OTHER, SELFPAY ==
[2024-09-01 11:41] LABS: Alanine Aminotransferase 13 U/L (0-31); Albumin Level 4.3 g/dL (3.5-5.0); Alkaline Phosphatase 85 U/L (39-117); Anion Gap 9 (12-20); Aspartate Amino Transferase 17 U/L (5-31); Bilirubin Total 0.5 mg/dL (0.0-1.0); Blood Urea Nitrogen 9 mg/dL (9-16); Calcium 9.1 mg/dL (8.4-10.2); Carbon Dioxide 26 mmol/L (22-29); Chloride 110 mmol/L (96-108); Cholesterol 187 mg/dL (<200); Estimated Glomerular Filt Rate > 60; Glucose Random 90 mg/dL (60-115); HDL Cholesterol 54 mg/dL (>40); LDL Cholesterol Calculated 123 mg/dL (<100); Potassium 4.3 mmol/L (3.3-5.1); Sodium 141 mmol/L (135-145); Total Protein 7.5 g/dL (6.5-8.0); Triglycerides 53 mg/dL (<150)
== END 2024-09-01 09:21 | disposition home or self-care (01) ==
LOC: HO.LAB 09:20
PROVIDERS: PCP Internal Medicine; Visit Provider Internal Medicine
DX: E78.00 Pure hypercholesterolemia, unspecified (principal); I10 Essential (primary) hypertension; R51.9 Headache, unspecified; Z86.73 Personal history of transient ischemic attack (TIA), and cerebral infarction without residual deficits
CPT/HCPCS: 36415; 80053; 80061

== ENCOUNTER 2024-12-22 08:19 | Outpatient (AMB) | payer OTHER, SELFPAY ==
[2024-12-22 08:24] VITALS: BP 130/72; PULSE 92; BMI 30.5
--- NOTE | 2024-12-22 08:24 | MHC.OFFVIS ---
Vital Signs 12/22/24 08:24 Height 4 ft 11 in Weight 151 lb 3.794 oz BMI 30.5 BP 130/72 Blood Pressure Location Rt brachial Position Sitting Pulse 92 Pulse Source Pulse Oximeter Intake Visit Reasons: 6 mth f/up r/s 10/19 Surg Nurse Required: No Accompanied by: Self / Same As Patient Allergies amoxicillin [AMOXICILLIN] Allergy (Intermediate, Verified 07/14/24 16:05) RASH Medication List - Last Reconciled 12/22/24 by Guillermo Torres MD atorvastatin 20 mg PO BEDTIME metoprolol succinate ER (Toprol XL) 50 mg PO DAILY multivitamin 1 tab PO DAILY semaglutide (weight loss) (Wegovy) 2.4 mg subcut QWEEK HPI Comments Details: Marlene returns for follow-up regarding atrial fibrillation. To recall, in 2016, she had atrial fibrillation that resolved with flecainide. As she had recurrent episodes, she saw EP and underwent ablation. Then had another ER visit with atrial flutter and rapid rate. Then saw EP and had another ablation in 2023. Since last seen, she states that she feels well. No recurrence of atrial fibrillation or any other issues. No other cardiac symptoms. [facility] Medical History Rib pain on left side Essential hypertension TIA (transient ischemic attack) PAT (paroxysmal atrial tachycardia) PAF (paroxysmal atrial fibrillation) Internal and external bleeding hemorrhoids Asthma Hypertension Diabetes mellitus Morbid obesity Surgical History History of abdominoplasty (~2006) History of removal of laparoscopic gastric banding device (~12/2018) Hx of laparoscopic gastric banding (~2010) History of bilateral breast reduction surgery (~2005) History of tubal ligation History of hysterectomy (~12/2014) Family History Maternal Aunt History of colon cancer Paternal Aunt History of breast cancer Social History Alcohol intake: never Patient Tobacco Use Status: Never used Tobacco Review of Systems Const Denies chills, Denies fatigue, Denies fever(s), Denies frequent falls, Denies weakness, Denies weight gain and Denies weight loss ENT Denies dizziness Card Denies chest pain, Denies leg edema, Denies lightheadedness, Denies palpitations, Denies dyspnea and Denies dyspnea on exertion Resp Denies cough, Denies dyspnea and Denies dyspnea on exertion GI Denies hematochezia Musc Denies abnormal gait, Denies muscle weakness, Denies numbness, Denies radiating pain into limb and Denies tingling Neuro Denies abnormal gait, Denies dizziness, Denies frequent falls, Denies numbness, Denies tingling and Denies weakness Endo Denies fatigue and Denies palpitations Physical Exam Vital Signs: Last Vital Signs Pulse 92 12/22/24 08:24 BP 130/72 12/22/24 08:24 BMI result Body Mass Index 30.5 Const General: comfortable and no acute distress Orientation/consciousness: patient oriented x3 HEENT Other: Unremarkable Head: Yes normal to inspection Neck Neck: Yes normal visual inspection Chest Chest palpation & inspection: normal inspection of the chest Resp Auscultation: clear to auscultation bilaterally Cardio Palpation: normal PMI Heart sounds: S1 normal heart sound present, S2 normal heart sound present, no gallops, no murmurs and no rubs GI Palpation (GI): Soft to palpation Back/Spine/Pelvis Other: unremarkable Skin General skin exam: no rashes or lesions noted Neuro General: patient oriented x3 Extrem General: Yes normal to inspection Psych Mental Status: mental status grossly normal Assessment & Plan Assessment & Plan (1) PAF (paroxysmal atrial fibrillation): Code(s): I48.0 - Paroxysmal atrial fibrillation Category: Medical Plan: Status post atrial fibrillation ablation in 2020. Repeat ablation in November 2023. She is doing well in this regard. Continue beta-blockers. Per patient, she has been taken off anticoagulation by EP. (2) PAT (paroxysmal atrial tachycardia): Code(s): I47.1 - Supraventricular tachycardia Category: Medical Plan: No recent issues. Continue beta-blockers. (3) Essential hypertension: Code(s): I10 - Essential (primary) hypertension Category: Medical Plan: She believes she is on losartan but she is not sure. We will need to call the pharmacy to confirm. Blood pressure seems acceptable. Plan I reviewed with the patient her current treatment for hypertension and hyperlipidemia, which includes Metoprolol 50 mg daily and a statin 20 mg daily. The continuation of these medications was confirmed as they are currently successful in managing her symptoms without adverse effects. Regarding her use of Losartan, verification from her pharmacy will be needed to confirm the current dosage. We also discussed her use of Wegovy for weight management, with her explaining the 2.4 mg weekly dose regimen. Annual follow-ups seem appropriate considering her health stability, and I advised her to reach out should any unexpected symptoms arise. Patient was informed and verbally consented to the use of an ambient scribe for clinic note documentation during this visit. Patient Instructions: - Continue Metoprolol ER 50 mg daily. - Verify Losartan dosage with the pharmacy. - Continue Wegovy 2.4 mg weekly. - Schedule a follow-up appointment annually or if any new symptoms develop. - Call the office if experiencing any symptoms or concerns related to your current medications. Coding Level of Care Code Est Pt Level 4 (54578) Complex EM visit Add On G2211 Diagnoses PAF (paroxysmal atrial fibrillation) I48.0 PAT (paroxysmal atrial tachycardia) I47.1 Essential hypertension I10
--- OUTSIDE RECORDS SUMMARY | 2024-12-22 08:44 | XMS_ITS | Data Portability ---
Author Organization [place] [facility] Address [address] [place] [id number] Care Team Providers Care Ocean Forwarder Name Role Phone EMMANUELLE CASTAÑEDA Primary Care Provider Assessment Encounter Date Assessment Date Assessment LastModified by Organization Details LastModified Time 08/27/2018 08/27/2018 Overview/History :53 yo female with PMH noted in review complaining of sinus pain, ear pain and scratch throat with suspected fever in the last 24 hours. Pt's granddaughter had recent cold and lives with the pt. Pt denies any CP, SOB, N/V, diarrhea, abdominal pain. Pt has lap band hx, balloon is currently deflated. Exam: NAD< A/O X3, pain with sinus palpation, ear drums bulging B, fluid noted, oral mucosa moist, no exudate, no sores, lungs clear, no wheeze on exam, low grade fever noted. DDx considered, but not limited to:Sinusitis, Ear infection, Bronchitis, Viral Cold Work up/Results:Flu swab neg, physical exam Plan/Discussion: Doxycycline for sinusitis, ear infection, nebs called in for noted asthma and pt's supply had , fluticasone to help relieve nasal congestion, trevon pot, no antihistamine due to cardiac hx , follow up with PCP next week or earlier if no improvement Time On Scene with Patient: 02:07:46 Not available 08/27/2018 21:30:31 10/15/2022 10/15/2022 Brief Overview: 57 y/o female known to DH new to provider with hx of A fib, asthma, DM diet controlled, HTN, hyperlipidemia, TIA. pt reports she has been sick x 5 days now. she has had nasal congestion mostly yellow mucous sometimes streaked with blood. no fever, + body aches. she has cough that is productive at times with yellow sputum. her co workers have been sick with flu, covid and rsv. pt has been doing home covid tests and they have been negative. she also reports right ear pain and sore throat. Intermittent COREAS, no blurry vision or dizziness. she denies cp, sob, weakness. no nausea, vomiting or diarrhea. she has been out of her rescue inhaler and has not taken any otc meds due to her medical hx and current medications. Vital Signs: BP 106/62, HR 84, RR 18, T 99.1, O2 100% RA Exam: pleasant 57 y/o female well appearing, alert, NAD sitting on her couch watching tv. eyes: no injection, icterus or discharge. nose: nares patent no discharge. ears: TMs and EACs clear. no sinus tenderness. mouth: moist mucous membranes no erythema, exudates, uvula is midline. no cervical lymphadenopathy. lungs: CTAB no wheezes rales or rhonchi. heart: RRR no murmur rubs or gallops. no peripheral edema. no calf pain tenderness or edema, negative homans. abdomen: soft, normal bowel sounds, non tender. skin: warm and dry no rashes or lesions. strength is normal and equal bilaterally. cranial nerves III-XII intact. gait and stance is normal. DDx considered, with rationale: Pneumonia: considered but lungs are clear. PE: considered but no hypoxia or tachycardia, currently on Xarelto. Asthma exacerbation: considered but lungs are clear, pt denies wheezing/ sob. CHF: considered but lungs are clear no peripheral edema and no reported weight gain. Covid: considered PCR pending. Results/ work up: Rapid flu test was negative. Covid PCR pending. Plan: URI: rest and stay hydrated. recommend using a humidifier in the bedroom at night. take otc tylenol as directed on the package for pain or fever. recommend otc flonase nasal spray 2 sprays in each nostril once daily x 7 days. covid PCR is pending. follow up with pcp in 3-5 days or sooner prn. Go to the ER with worsening symptoms- cp, sob, wheezing, vomiting, weakness, dizziness, edema. Asthma: pt is out of her rescue inhaler Proair, refilled inhaler today 2 puffs q 4-6 hours prn tightness, wheezing, sob. follow up with pcp as scheduled. go to the ER with any worsening symptoms cp, sob, wheezing not relieved with inhaler. Proper Personal Protective Equipment (PPE), including gloves, eye protection and masks were donned and doffed appropriately and all equipment cleaned using approved technique with germicidal disposable wipes prior to and after care of this patient according to Count includes the [facility]'s infection prevention protocols. [email or web address] Not available 10/15/2022 17:46:54 Plan of Treatment Reminders Order Date Submit Date Provider Last Modified By Organization Details Last Modified Time Details Appointments None recorded. Lab rapid flu (A+B) 2022 023 [email or web address] [facility], [address] [place], [address], 3 16:10:05 unlisted lab - covid-19 (novel coronaviru s) PCR 2022 023 GHAZAL [facility] (Centralized Electronic Ordering - All Locations), Patient Can Go To The Location Of Their Choice, [id number] 3 18:01:36 rapid flu (A+B) 2017 018 [facility], [address] [place], [address], 8 09:24:12 Referral None recorded. Procedures None recorded. Surgeries None recorded. Imaging None recorded. Medication Orders ProAir HFA 90 mcg/actuat ion aerosol inhaler 2022 023 [facility][id number], [address], [place], [id number], 3 16:10:21 albuterol sulfate concentrat e 2.5 mg/0.5 mL solution for nebulizati on 2017 018 [id number], [address], [place], [id number], 8 19:10:20 doxycyclin e hyclate 100 mg tablet 2017 018 [facility] #[id number], [address], [place], [id number], 3 15:54:47 fluticason e propionate 50 mcg/actuat ion nasal spray,susp ension 2017 018 [email or web address] [facility] #[id number], [address], [place], [phone], 3 15:56:02 Patient TargetsNo targets recorded. Patient Instructions Encounter Date Encounter Id Patient Instructions Last Modified By Organization Details Last Modified Time 08/27/2018 [id number] You have been diagosed with sinusitis and post nasal drip. We are prescribing doxycycline 100 mg by mouth twice daily for 10 days and fluticasone nasal spray, use as directed. Your flu swab was negative. Continue to hydrate, 8 glasses of water a day. You can take tylenol as directed, no more than 4000 mgs inone day. Please do not take motrin, ibuprofen, aleve or naprosyn as this can promote bleeding while on xaralto. Warm compress over your sinuses can help with discomfort and pain. It is advisable ot use trevon pot as needed to alleviate your symptoms. It is not advised to use antihistamines noting your hx of AFIB and cardiac concerns. For your asthma, we have ordered albuterol nebs to be used as needed with your home nebulizer, as your current source is . Maximum number of nebs in one day is 4. Please seek emergent treatment for SOB at rest, difficulty breathing or fever 101 or greater. [facility]. We cannot always find the exact cause of your symptoms during your initial visit. Please follow up with your primary care provider or specialist as needed to be rechecked or seek medical attention if your symptoms do not go away or get worse. If you develop any new or worsening symptoms and need after hours care, please go to nearest ER and/or call 911. If you have additional concerns or develop a change in your condition between 8am-10pm, please call [facility] at [phone] to help navigate your care. Not available 08/27/2018 19:19:46 201: [id number] Bertha LITERACY SPECIALIST: Call from patient to [facility] - no RX for doxycycline or albuterol for patient. This was called in to patient's pharmacy listed in chart - Did call and leave VM with patient's phone - no call back as of yet. [email or web address] Not available 08/28/2018 12:56:05 Reason for Referral None Reported. Results Created Date Observation Date Name Description Value Unit Range Abnormal Flag Note LastModifiedBy Organization Detail LastModifiedTime 10/15/19 23 10/16/2022 COVID -19 (NOVE L CORON AVIRU S) PCR covid-19 PCR result (neg) NEGAT ALLAN 2018- novel Coron aviru s (2018nCoV ) not detec gayatri by real- time RT-PC R. Note: If clini magaly suspi cion for COVID -19 is high, ivone nue to maint ain preca ution s and consi ava repea t testi ng. Resul t repor gayatri to the [facility]. To preve nt error s in diagn osis, test resul ts shoul d be inter prete d in the shalonda xt of clini magaly findi ngs and other labor atory data. Rare polym orphi sms exist that could lead to false -nega tive or false -posi tive resul ts. If resul ts obtai abdirashid do not match the clini magaly findi ngs, addit ional testi ng shoul d be consi dered . This test has been autho rized by the FDA under an Emerg ency Use Autho rizat ion (EUA) for use by autho rized labor atori es. Testi ng perfo rmed by real time PCR utili [facility] JAMAR [employer] SARS- CoV-2 test. Not Available [facility] (Centralized Electronic Ordering - All Locations) Patient Can Go To The Location Of Their Choice, [id number] 10/16/2022 18:01:36 10/15/19 23 10/16/2022 COVID -19 (NOVE L CORON AVIRU S) PCR covid-19 PCR specimen source NASAL Not Available [facility] (Centralized Electronic Ordering - All Locations) Patient Can Go To The Location Of Their Choice, [id number] 10/16/2022 18:01:36 10/15/19 23 10/15/2022 rapid flu (A+B) Flu A (ref: neg) negati ve Not Available [facility] - Home [address] [place], [address], 10/15/2022 16:05:20 10/15/19 23 10/15/2022 rapid flu (A+B) Flu B (ref: neg) negati ve Not Available [facility] - Home [address] [place], [address], 10/15/2022 16:05:20 10/15/19 23 10/15/2022 rapid flu (A+B) Control Visual ized/V alid Not Available [facility] - Home [address] [place] [address], [phone], 10/15/2022 16:05:20 10/15/19 23 10/15/2022 rapid flu (A+B) Location [facility], [facility], [address] [place] [address], [id number] Not Available [facility] [address] [place] [address], [phone], 10/15/2022 16:05:20 Result Notes None recorded. Procedures Surgical History Date Name Laterality Status Provider Name and Address Organization Details Recorded Time laparoscopic adjustable gastric banding completed AMAIRANI JACOME NP [address] [place], [address], [place] [facility] 08/27/2018 21:24:13 Imaging Results None recorded. Procedure Notes None recorded. Medical Equipment None Reported. Allergies Allergen ID Allergen Name Allergen Category Reaction Reaction Severity Criticality Documentation Date Start Date Code Code System Note Provider Name and Address Organization Details Recorded Time 88653 amoxicill in medicatio n Not available Not available Not available 08/27/2018 723 RxNorm AMAIRANI Chase, LITERACY SPECIALIST [address] [place], [address], [place] [facility] 8 18:40:11 Medications Name Sig Start Date Stop Date Status Note LastModified by Organization Details LastModified Time binaxnow covid-19 ag card home test kit 10/15 completed Not Available Not Available Not Available vitamin b12 1000mcg tablet extended release 10/15 completed Not Available Not Available Not Available metformin 500 mg tablet 10/15 completed Not Available Not Available Not Available atorvastati n 20 mg tablet active Not Available Not Available Not Available clindamycin HCl 300 mg capsule 10/15 completed Not Available Not Available Not Available flecainide 150 mg tablet 10/15 completed Not Available Not Available Not Available azithromyci n 250 mg tablet active Not Available Not Available Not Available diltiazem CD 180 mg capsule,ext ended release 24 hr active Not Available Not Available Not Available benzonatate 200 mg capsule active Not Available Not Available Not Available ondansetron HCl 4 mg tablet 08/27 completed Not Available Not Available Not Available prednisone 20 mg tablet active Not Available Not Available Not Available clindamycin HCl 150 mg capsule 08/27 completed Not Available Not Available Not Available valacyclovi r 500 mg tablet active Not Available Not Available Not Available omeprazole 40 mg capsule,del ayed release 10/15 completed Not Available Not Available Not Available doxycycline monohydrate 100 mg tablet active Not Available Not Available Not Available estradiol 1 mg tablet 10/15 completed Not Available Not Available Not Available lisinopril 10 mg tablet active Not Available Not Available Not Available flecainide 100 mg tablet 08/27 completed Not Available Not Available Not Available cefuroxime axetil 500 mg tablet 08/27 completed Not Available Not Available Not Available fluocinonid e 0.05 % topical cream 10/15 completed Not Available Not Available Not Available fluticasone propionate 50 mcg/actuati on nasal spray,suspe nsion [place] 1 spray every day by intranasa l route for 14 days. 10/15 completed Not Available Not Available Not Available cholecalcif jayy (vitamin D3) 125 mcg (5,000 unit) capsule 10/15 completed Not Available Not Available Not Available doxycycline hyclate 100 mg tablet Take 1 tablet twice a day by oral route for 10 days. 10/15 completed Not Available Not Available Not Available albuterol sulfate concentrate 2.5 mg/0.5 mL solution for nebulizatio n Inhale 0.5 mL as needed by nebulizat ion route as directed for 30 days. 2017 active Not Available Not Available Not Avai lable DILT-XR 120 mg capsule, extended release 08/27 completed Not Available Not Available Not Available DILT-XR 180 mg capsule, extended release 10/15 completed Not Available Not Available Not Available Flovent HFA 110 mcg/actuati on aerosol inhaler active Not Available Not Available Not Available ProAir HFA 90 mcg/actuati on aerosol inhaler Inhale 2 puff(s) every 4-6 hours by inhalatio n route as needed. active Not Available Not Available No t Available Flovent Diskus 250 mcg/actuati on powder for inhalation active Not Available Not Available N ot Available estradiol 10 mcg vaginal tablet 10/15 completed Not Available Not Available Not Available Suprep Bowel Prep Kit 17.5 gram-3.13 gram-1.6 gram oral solution 08/27 completed Not Available Not Available Not Available Xarelto 20 mg tablet active Not Available Not Available No t Available Paxlovid 300 mg (150 mg x 2)-100 mg tablets in a dose pack 10/15 completed Not Available Not Available Not Available Vitals Date Recorded Oxygen saturation Oxygen saturation in Arterial blood by Pulse oximetry Respiratory rate Body temperature Heart rate Systolic blood pressure Diastolic blood pressure Provider Name and Address Organization Details Last Updated DateTime 8 97 % 97 % 20 /min 99.1 [degF] 68 /min 140 mm[Hg] 82 mm[Hg] Not Available [facility] 8 18:47:40 Date Recorded Oxygen saturation Oxygen saturation in Arterial blood by Pulse oximetry Heart rate Respiratory rate Body temperature Systolic blood pressure Diastolic blood pressure Provider Name and Address Organization Details Last Updated DateTime 3 100 % 100 % 84 /min 18 /min 99.1 [degF] 106 mm[Hg] 62 mm[Hg] Not Available [facility] 3 15:57:57 Social History Question Answer Notes LastModified by Organizat ion Details LastModified Time Tobacco Smoking Status Never Smoker AMAIRANI JACOME NP [address], [place], [address], [place] [facility] 08/27/2018 18:54:45 Do You Have An Advance Directive? No Information not available 08/27/2018 What Is Your Code Status? Full Code Information not available 08/27/2018 Within The Past 12 Months, Has It Happened That The Food You Bought Just Didn't Last And You Didn't Have Money To Get More. Overweight Information not available 08/27/2018 Within The Past 12 Months, Have You Worried That Your Food Would Run Out Before You Got Money To Buy More. Yes Information not available 08/27/2018 Fall Risk: Do You Feel Unsteady When Standing Or Walking? No Information not available 08/27/2018 Has The Patient Seen Their PCP In The Past 6 Months? No [email or web address] Information not available 10/15/2022 Marital Status Information not available 08/27/2018 What Was The Date Of Your Most Recent Tobacco Screening? 08/27/2018 Information not available 04/23/2019 Sex: Unknown Functional Status None recorded. Mental Status None recorded. Family History Relationship Description Onset Age of this Age Resolved Age Notes LastModified by Organization Details LastModified Time Father Coronary arterioscler osis Not available 18:53:28 Father Dementia Not avail able 08/27/2018 18:54:18 Mother Diabetes mellitus Not available 18:54:00 Medical History Condition Response Hypothyroidism N A-fib Y Diabetes Y Stroke Y Asthma Y High Cholesterol Y Pulmonary Embolism N Hypertension Y Kidney Disease N Gynecological HistoryNo gynecological history recorded. Obstetrics History GPAL:G 0 P 0 0 0 0 Past Encounters Encounter ID Performer Location Encounter Start Date Encounter Closed Date Diagnosis/Indication Diagnosis SNOMED-CT Code Diagnosis ICD10 Code Diagnosis Note [id number] TAISHA ORNELAS NP [facility] [address] [place] [address] 08/27/2018 18:35:37 08/27/2018 21:40:48 Sinusitis 71222597 J32.9 Asthma 749579586 J45.90 9 [id number] JENNIFER Beckwith [facility] [address] [place] [address] 10/15/2022 15:52:20 10/15/2022 18:10:14 Viral upper respiratory tract infection 991963267 J06.9 Asthma 459569530 J45.90 9 Health Concerns Section Related Observation LastModified by Organization Detsriram ls LastModified Time None Recorded Concern Status LastModified by Organization Details LastModified Time None Recorded Advance Directives Directive N: Payers Encounter Date Sequence Insurance Name Policy Number Policy Lr Covered Member ID Lr Member ID Guarantor Name 08/27/2018 1 [facility] (O) [id number] Marlene Hernandez [id number] Marlene Hernandez 10/15/2022 1 [facility] [id number] Marlene Keysa [id number] Marlene Hernandez Notes Date Note Type Note Provider Name and Address Organization Details Recorded Time 08/27/2018 text/html Pt is a 53 yo female with PMH noted in review complaining of sinus pain, ear pain and scratch throat with suspected fever in the last 24 hours. Pt's granddaughter had recent cold and lives with the pt. Pt denies any CP, SOB, N/V, diarrhea, abdominal pain. Pt has lap band hx, balloon is currently deflated. TAISHA ORNELAS, LITERACY SPECIALIST [address], [place], [address], [place] [facility] 08/28/2018 13:08:05 10/15/2022 text/html 57 y/o female kn own to new to provider with hx of A fib, asthma, DM diet controlled, HTN, hyperlipidemia, TIA. pt reports she has been sick x 5 days now. she has had nasal congestion mostly yellow mucous sometimes streaked with blood. no fever, + body aches. she has cough that is productive at times with yellow sputum. her co workers have been sick with flu, covid and rsv. pt has been doing home covid tests and they have been negative. she also reports right ear pain and sore throat. Intermittent COREAS, no blurry vision or dizziness. she denies cp, sob, weakness. no nausea, vomiting or diarrhea. she has been out of her rescue inhaler and has not taken any otc meds due to her medical hx and current medications. pt reports asthma has been controlled no recent flare ups. Emma Jimenez, PA [address], [place], [address], [place] [facility] 10/15/2022 17:48:03 OBGyn Episode No OBEpisode recorded.
== END 2024-12-22 08:38 | disposition home or self-care (01) ==
LOC: HO.HCS 08:19
PROVIDERS: PCP Internal Medicine; Visit Provider Internal Medicine
DX: I48.0 Paroxysmal atrial fibrillation (principal); I47.10 Supraventricular tachycardia, unspecified; I10 Essential (primary) hypertension
CPT/HCPCS: 99214

== ENCOUNTER → 2025-02-19 07:30 | Outpatient (BNV) | payer OTHER, SELFPAY | PROVIDERS: PCP Internal Medicine; Visit Provider Internal Medicine | DX: Z12.31 Encounter for screening mammogram for malignant neoplasm of breast (principal) | CPT/HCPCS: 77063; 77067 ==

== ENCOUNTER 2025-02-19 07:42 | Outpatient (REF) | payer OTHER, SELFPAY ==
--- NOTE | ~2025-02-19 | MM_ITS ---
EXAMINATION: MM SCREENING DIGITAL BREAST TOMOSYNTHESIS, BILATERAL CLINICAL INFORMATION: Screening. Asymptomatic. COMPARISON: Mammography: Comparison is made with available priors TECHNIQUE: Digital breast mammography with tomosynthesis is performed in both the craniocaudal and mediolateral oblique views along with computer-aided detection (CAD). FINDINGS: There are scattered areas of fibroglandular density (ACR BI-RADS breast composition Category b). There are no significant masses, abnormal calcifications, or other abnormalities. MM/MM tomosynthesis screening BI IMPRESSION: No mammographic evidence of malignancy. ASSESSMENT: BI-RADS BI-RADS 1 - Negative RECOMMENDATION: Routine annual mammography screening. 1 year F/U This examination should not preclude the clinical evaluation of a suspicious palpable abnormality. This patient's information was entered into a reminder system with a target due date for their next mammogram. Electronically signed by: Anh Solares DO 02/27/2025 01:18 PM EDT
--- OUTSIDE RECORDS SUMMARY | 2025-02-19 07:44 | XMS_ITS | Continuity of Care Document ---
Author Organization [facility] Address [address] [facility] [address] [place] [address] Insurance Providers Payer Plan Claims Address Claims Phone Policy Number Group Number Relation Employer Guarantor Name Guarantor Guarantor Address Guarantor Phone [facility] tel:[phone] [id number] [address] tel: [phone] Problems Condition ICD9 code ICD10 code SNOMED code Start Date End Date S tatus Encounter for screening for other metabolic disorders Z13.228 Results No Results Allergies, adverse reactions, alerts No known allergies and adverse reactions Medications No administered medications reported Vital Signs No vital signs reported Social History No smoking Hx information available
[2025-02-19 09:50] LABS: Cholesterol 170 mg/dL (<200); HDL Cholesterol 60 mg/dL (>40); LDL Cholesterol Calculated 99 mg/dL (<100); Triglycerides 55 mg/dL (<150)
== END 2025-02-19 07:43 | disposition home or self-care (01) ==
LOC: HO.MAMMO 07:42
PROVIDERS: PCP Internal Medicine; Visit Provider Internal Medicine
DX: Z12.31 Encounter for screening mammogram for malignant neoplasm of breast (principal); E78.00 Pure hypercholesterolemia, unspecified; G47.00 Insomnia, unspecified; G57.12 Meralgia paresthetica, left lower limb; I10 Essential (primary) hypertension; R51.9 Headache, unspecified
CPT/HCPCS: 36415; 77063; 77067; 80061

== ENCOUNTER 2025-09-04 08:51 | Outpatient (REF) | payer OTHER, SELFPAY ==
--- OUTSIDE RECORDS SUMMARY | 2025-09-04 08:54 | XMS_ITS | Clinical Summary ---
Author Organization [facility] Address [address] [place] [address] Phone Care Team Providers Care Press Feeder Broomcorn Name Role Phone Pineda Simeon MD Primary Care Provider [phone] Allergies Active Allergy Reactions Criticality Noted Date Comments Amoxicillin Rash Low 09/25/2017 Medications dilTIAZem (DILACOR XR) 120 MG 24 hr capsule Take 120 mg by mouth daily. Active flecainide (TAMBOCOR) 100 MG tablet Take 100 mg by mouth 2 (two) times a day. Active metFORMIN (GLUCOPHAGE) 500 MG tablet Take 500 mg by mouth 2 (two) times a day with meals. Active rivaroxaban (XARELTO) 20 mg Tab Take 20 mg by mouth daily. Active omeprazole (PRILOSEC) 40 MG capsule Take 40 mg by mouth daily. Active cyanocobalamin (VIT B-12) 1000 MCG tablet Take 100 mcg by mouth daily. Active cholecalciferol (VITAMIN D3) 5,000 unit tablet Take 1,000 Units by mouth daily. Active estradiol (ESTRACE) 1 MG tabletIndicatio ns:Vasomotor flushing TAKE 1 TABLET(1 MG) BY MOUTH DAILY 30 tablet 9 Active vitamin C71-[id number] acid 0.5-1 mg Tab vitamin b12 1000mcg tablet extended release Active albuterol 2.5 mg/0.5 mL nebulizer solution 0.5 mL. Active albuterol 90 mcg/actuation inhaler ProAir HFA 90 mcg/actuation aerosol inhaler Active doxycycline hyclate (DORYX) 100 MG tablet doxycycline hyclate 100 mg tablet Take 1 tablet twice a day by oral route for 10 days. Active fluticasone (FLOVENT DISKUS) 250 mcg/actuation DsDv Flovent Diskus 250 mcg/actuation powder for inhalation Active valACYclovir (VALTREX) 500 MG tabletIndicatio ns:Herpes genitalis in women TAKE 2 TABLETS(1000 MG) BY MOUTH DAILY FOR 5 DAYS 10 tablet 9 Active Active Problems Problem Noted Date Diagnosed Date History of herpes genitalis 04/23/2018 Transient ischemic attack 09/30/2014 History of total hysterectom y with removal of both tubes and ovaries 09/30/2014 Overview (09/25/2017): patient reports cancer cells on pathology. Surgery done by Dr. Sagastume Impaired glucose tolerance Overview (09/25/2017): no meds currently Hypertensive disorder Atrial fibrillation Asthma Family History Medical History Relation Comments Glaucoma Father Heart attack Father Diabetes Mother Heart failure Mother Hyperlipidemia Mother Ovarian cancer Neg Hx Relation Status Comments Father Alive Mother Alive Social History Tobacco Use Types Packs/Day Years Used Date Smoking Tobacco: Never Smokeless Tobacco: Never Alcohol Use Standard Drinks/Week Comments No 0 (1 standard drink = 0.6 oz pur e alcohol) Education Answer Date Recorded Are you interested in more education? Not on alize e 01/25/2023 Are you concerned about learning? Not on file 01/25/2023 No 01/25/2023 No 01/25/2023 Digital Access Answer Date Recorded No 02/25/2023 No 02/25/2023 Reliable internet access at home? Not on file 02/25/2023 Device with a working camera? Not on file Comments No Sex and Gender Information Value Date Recorded Sex Assigned at Female 10/07/2017 9:35 AM EST Legal Sex Female 4:47 PM EDT Gender Identity Female 10/07/2017 9:35 AM EST Sexual Orientation Straight 10/07/2017 9: 35 AM EST Last Filed Vital Signs Vital Sign Reading Time Taken Comments Blood Pressure 128/78 12/04/2018 8:36 AM EST Pulse - - Temperature - - Respiratory Rate - - Oxygen Saturation - - Inhaled Oxygen Concentration - - Weight 87.9 kg (193 lb 12.8 oz) 12/04/2018 8:36 AM EST Height 149.9 cm (4' 11 ) 09/25/2017 8:09 AM EST Body Mass Index 39.14 09/25/2017 8:09 AM EST Plan of Treatment Health Maintenance Due Date Last Done Comments Adult Td,Tdap Booster 1966 BLOOD PRESSURE 1966 CREATININE LEVEL 1966 LIPID PANEL 1966 DEPRESSION SCREENING 1978 HEPATITIS C SCREENING 1984 HIV ONE-TIME SCREENING (18-6 5 YEARS) 1984 MAMMOGRAM 2006 COLOGUARD 2011 COLONOSCOPY 2011 COLORECTAL CANCER SCREENING 2011 FIT TEST 2011 FOBT 2011 SIGMOIDOSCOPY 2011 VIRTUAL COLONOSCOPY 2011 RSV VACCINE (1 - Risk 50-74 years 1-dose series) 2016 ZOSTER VACCINES (1 of 2) 2016 PNEUMOCOCCAL VACCINES (50+ years) (2 of 2 - PCV) 12/10/2017 12/10/2016, 12/20/2010 PAP SMEAR 12/02/2018 INFLUENZA VACCINE (#1) 2025 COVID-19 VACCINE (4 - 2024-2 6 season) 2025 03/22/2021, 03/18/2021, 02/25/2021 SMOKING STATUS SCREENING (On ce After 26 Yrs) Completed 09/25/2017 HEPATITIS A VACCINES Aged Out No long er eligible based on patient's age to complete this topic HIB VACCINES Aged Out No longer eligi ble based on patient's age to complete this topic MENINGOCOCCAL VACCINES (ACWY) Aged Out No longer eligible based on patient's age to complete this topic MENINGOCOCCAL VACCINES (B) Aged Out N o longer eligible based on patient's age to complete this topic Medical Devices Not on file Insurance [facility] NON NSPG PCP [place] CONNE[employer]CARE WELLSENSE NON NSPG PCP [employer] WELLSENSE NON NSPG PCP SILVER [employer]ITY CONNECTORCARE WELLSENSE NON NSPG PCP SILVER CLARITY CONNECTORCARE WELLSENSE NON NSPG PCP SILVER CLARITY CONNECTORCARE WELLSENSE NON NSPG PCP SILVER [employer]ITY CONNECTORCARE WELLSENSE NON NSPG PCP S[employer]VER [employer]ITY CONNECTORCARE Member Subscriber Plan / Payer (Ef fective 2017-Present) Name:Hernandez Marlene Relation to Subscriber:Self Name:HernandezMarlene Payer ID:[id number] Type:O Address: [place] [id number] [facility] NON NSPG PCP SILVER [employer] CONNECTORCARE [facility] NON NSPG PCP SILVER [employer] CONNECTORCARE Care Teams Press Feeder Broomcorn Relationship Specialty Start Date End Date Pineda Simeon MD [address] [place] [address] [place] [address] PCP - General 02/04/15 Additional Source Comments The information contained in this document represents components of the legal health record. It is not the complete legal health record.[facility]
--- OUTSIDE RECORDS SUMMARY | 2025-09-04 08:54 | XMS_ITS | Clinical Summary ---
Author Organization [facility] Address [address] [place] [address] Phone Care Team Providers Care Prison Officer Name Role Phone Monique Dill MD Primary Care Provider [phone] Allergies Active Allergy Reactions Criticality Noted Date Comments Amoxicillin 10/31/2005 Medications albuterol HFA (Proventil HFA) 90 mcg/actuation inhaler Inhale 2 puffs by mouth 4 (four) times a day if needed. Active pantoprazole sodium (PANTOPRAZOLE ORAL) Take 40 mg by mouth. Active rivaroxaban (XARELTO ORAL) Take by mouth. Active atorvastatin (LIPITOR) 20 mg tablet Take 1 tablet (20 mg total) by mouth 1 (one) time each day. Active benzonatate (TESSALON) 200 mg capsule Take 1 capsule (200 mg total) by mouth 3 (three) times a day if needed. Active cholecalciferol (VITAMIN D-3) 1,250 mcg (50,000 unit) capsule Take 1 capsule (50,000 Units total) by mouth 1 (one) time per week. 3 Active doxycycline-roger zoyl peroxide (BenzoDox 30) 100-4.4 mg-% kit, cleanser ER and tablet by Combination route. Active fluticasone HFA (Flovent HFA) 220 mcg/actuation inhaler Inhale 2 puffs by mouth 2 (two) times a day. 6 Active ipratropium-alb uteroL (DUONEB) 0.5-2.5 mg/3 mL nebulizer solution 3 mL 4 (four) times a day. Active lisinopriL (PRINIVIL,ZESTR IL) 10 mg tablet Take 1 tablet (10 mg total) by mouth 1 (one) time each day. Active predniSONE (DELTASONE) 20 mg tablet 4tabs x 3 days, 3 tabs x 3 days , 2 tabsx 3 days 1 tab x 3 days 6 Active semaglutide (Wegovy) 2.4 mg/0.75 mL injection penIndications: Over weight Inject 2.4 mg under the skin every 7 (seven) days. 3 mL 3 5 10/31/19 26 Active Active Problems Problem Noted Date Diagnosed Date Class 2 obesity with body ma ss index (BMI) of 35.0 to 35.9 in adult 08/26/2024 Odynophagia 12/03/2019 Intestinal malabsorption following gastrectomy 0 01/08/2019 Hiatal hernia 01/08/2019 Genital herpes 12/07/2005 Overview (08/26/2024): IMO update Asthma 11/01/2005 Surgical History Surgery Date Site/Laterality Comments BREAST REDUCTION PROCEDURE: WI BREAST REDUCTION Medical History Medical History Date Comments Genital herpes, unspecified 12/07/2005 DX:G enital herpes, unspecified Asthma DX:Asthma Atrial fibrillation (CMS/HCC V24, CMS/HCC V28) DX:Atrial fibrillation ([facility]) Family History Medical History Relation Name Comments Other: a fib Father Other: heart attack Father Other: heart failure Father Diabetes Mother Hyperlipidemia Mother Relation Name Status Comments Father Alive Mother Alive Social History Tobacco Use Types Packs/Day Years Used Date Smoking Tobacco: Never Smokeless Tobacco: Never Alcohol Use Standard Drinks/Week Comments No 0 (1 standard drink = 0.6 oz pur e alcohol) Comments Unknown Sex and Gender Information Value Date Recorded Sex Assigned at Not on file Legal Sex Female 4:35 AM EST Gender Identity Not on file Sexual Orientation Not on file Obstetrics History Last Filed Vital Signs Vital Sign Reading Time Taken Comments Blood Pressure 151/81 05/04/2025 8:19 AM EDT Pulse 77 05/04/2025 8:19 AM EDT Temperature 36.6 C (97.8 F) 05/04/2025 8:19 AM EDT Respiratory Rate - - Oxygen Saturation - - Inhaled Oxygen Concentration - - Weight 64.9 kg (143 lb) 05/04/2025 8:19 AM EDT Height 149.9 cm (4' 11 ) 05/04/2025 8:19 AM EDT Body Mass Index 28.88 05/04/2025 8:19 AM EDT Plan of Treatment Upcoming Encounters Date Type Department Care Team (Late st Contact Info) Description 11/04/2025 8:00 AM EST Office Visit Bariatric Surgery - [place] [address] [facility] [address] [place] [address] Veronika Lafleur PA [address] [place] [phone] Health Maintenance Due Date Last Done Comments Breast Cancer Screening 1965 Colorectal Cancer Screening: Colonoscopy 1966 DTaP,Tdap,and Td Vaccines (1 - Tdap) 1985 Hepatitis B Vaccines (1 of 3 - 19+ 3-dose series) 1985 Cervical Cancer Screening: P ap Smear 07/26/2009 07/26/2006 RSV Immunization Adult Patients (1 - Risk 50-74 years 1-dose series) 2016 Zoster Vaccines (1 of 2) 2016 Cholesterol Screening (Lipid Panel) 09/02/2022 HIV Screening 09/02/2022 Hepatitis C Screening 09/02/2022 Social Influencers of Health Screening 09/02/2022 Depression Screening 09/30/2024 Hypertension/CHF/CAD Annual BMP Blood Test 10/27/2024 05/09/2004 COVID-19 Vaccine (4 - 2024-2 6 season) 2025 03/22/2021, 03/18/2021, 02/25/2021 Influenza Vaccine (#1) 2025 07/14/2021 Pneumococcal Vaccine: 50+ Years (3 of 3 - PCV20 or PCV21) 06/14/2026 06/14/2021, 12/10/2016, 12/20/2010 HIB Vaccines Aged Out No longer eligi ble based on patient's age to complete this topic HPV Vaccines Aged Out No longer eligi ble based on patient's age to complete this topic Hepatitis A Vaccines Aged Out No long er eligible based on patient's age to complete this topic IPV Vaccines Aged Out No longer eligi ble based on patient's age to complete this topic MMR Vaccines Aged Out No longer eligi ble based on patient's age to complete this topic Meningococcal ACWY Vaccine Aged Out N o longer eligible based on patient's age to complete this topic Meningococcal B Vaccine Aged Out No l onger eligible based on patient's age to complete this topic RSV Immunization Patients Under 20 months Aged Out No longer eligible b ased on patient's age to complete this topic Varicella Vaccines Aged Out No longer eligible based on patient's age to complete this topic Procedures Procedure Name Priority Date/Time Associated Diagnosis Comments PAP SMEAR Routine 07/26/2006 ANNUAL BMP BLOOD TEST Routine 05/09/2004 from Last 3 Months or Most Recently Relevant to Health Maintenance Results * Pap Smear (07/26/2006) Pap smear No interpretation , abstracted Historical Provider MD HEALTH MAINTENANCE Final Result * Annual BMP Blood Test (05/09/2004) Annual BMP Blood Test Abstracted Historical Provider MD HEALTH MAINTENANCE Final Result from Last 3 Months or Most Recently Relevant to Health Maintenance Insurance [facility] [address] [place] [address] Care Teams Prison Officer Relationship Specialty Start Date End Date Monique Dill MD [address] PCP - General Internal Medicine 06/08/22
--- OUTSIDE RECORDS SUMMARY | 2025-09-04 08:54 | XMS_ITS | Data Portability ---
Author Organization [place] [facility] Address [address] [place] [phone] Care Team Providers Care Mortgage Loan Processing Clerk Name Role Phone PRO CASTAÑEDAMA Primary Care Provider Assessment Encounter Date Assessment [...] after care of this patient according to [facility]'s infection prevention protocols. [email or web address] Not available 10/15/2022 17:46:54 Plan of Treatment Reminders Order Date Submit Date Provider Last Modified By Organization Details Last Modified Time Details Appointments None recorded. Lab rapid flu (A+B) 2022 023 [email or web address] [facility], [address] [place], [address], 3 16:10:05 unlisted lab - covid-19 (novel coronaviru s) PCR 2022 023 GHAZAL [facility] (Centralized Electronic Ordering - All Locations), Patient Can Go To The Location Of Their Choice, [id number] 3 18:01:36 rapid flu (A+B) 2017 018 [facility], [address] [place], [address], 8 09:24:12 Referral None recorded. Procedures None recorded. Surgeries None recorded. Imaging None recorded. Medication Orders ProAir HFA 90 mcg/actuat ion aerosol inhaler 2022 023 MARIETTA [facility][id number], [address], [place], [id number], 3 16:10:21 albuterol sulfate concentrat e 2.5 mg/0.5 mL solution for nebulizati on 2017 018 [facility] #11865, [address], [place], [id number], 8 19:10:20 doxycyclin e hyclate 100 mg tablet 2017 018 [email or web address] [facility] #32444, [address], [place], [id number], 3 15:54:47 fluticason e propionate 50 mcg/actuat ion nasal spray,susp ension 2017 018 [email or web address] [facility] #40989, [address], [place], [id number], 3 15:56:02 Patient TargetsNo targets recorded. Patient Instructions Encounter Date Encounter Id Patient Instructions Last Modified By Organization Details Last Modified Time 08/27/2018 [id number] You have been diagosed with sinusitis and [...] greater. [facility]. We cannot always find the [...] in your condition between 8am-10pm, please [facility] at [phone] to help navigate your care. [email or web address] Not available 08/27/2018 19:19:46 201: [id number] Bong RESEARCH PROGRAM ASSISTANT: Call from patient to [facility] - no RX for doxycycline or albuterol for patient. This was called in to patient's pharmacy listed in chart - Did call and leave VM with patient's phone - no call back as of yet. [email or web address] Not available 08/28/2018 12:56:05 Reason for Referral None Reported. Results Created Date Observation Date Name Description Value Unit Range Abnormal Flag Note LastModifiedBy Organization Detail LastModifiedTime 10/15/1910/16/2022 COVID -19 (NOVE L CORON AVIRU S) PCR covid-19 PCR result (neg) NEGAT ALLAN 2018- novel Coron aviru s (2018nCoV ) not detec gayatri by real- time RT-PC R. Note: If clini magaly suspi cion for COVID -19 is high, ivone nue to maint ain preca ution s and consi ava repea t testi ng. Resul t repor gayatri to the [facility]. To preve nt error s in diagn [...] perfo rmed by real time PCR utili [facility] JAMAR Casualing0 SARS- CoV-2 test. Not Available [facility] (Centralized Electronic Ordering - All Locations) Patient Can Go To The Location Of Their Choice, [id number] 10/16/2022 18:01:36 10/15/19 23 10/16/2022 COVID -19 (NOVE L CORON AVIRU S) PCR covid-19 PCR specimen source NASAL Not Available [facility] (Centralized Electronic Ordering - All Locations) Patient Can Go To The Location Of Their Choice, [id number] 10/16/2022 18:01:36 10/15/19 23 10/15/2022 rapid flu (A+B) Flu A (ref: neg) negati ve Not Available [facility] [address] [facility], [place], [address], 10/15/2022 16:05:20 10/15/19 23 10/15/2022 rapid flu (A+B) Flu B (ref: neg) negati ve Not Available [facility] [address] [place], [address], 10/15/2022 16:05:20 10/15/19 23 10/15/2022 rapid flu (A+B) Control Visual ized/V alid Not Available [facility] [address] [place], [address], 10/15/2022 16:05:20 10/15/19 23 10/15/2022 rapid flu (A+B) Location [facility], [address] [place] [address], [id number] Not Available [facility] [address] [place] [address], [phone], 10/15/2022 16:05:20 Result Notes None recorded. Procedures Surgical History Date Name Laterality Status Provider Name and Address Organization Details Recorded Time laparoscopic adjustable gastric banding completed AMAIRANI JACOME NP [address] [place], [address], [place] [facility] 08/27/2018 21:24:13 Imaging Results None recorded. Procedure Notes None recorded. Medical Equipment None Reported. Allergies Allergen ID Allergen Name Allergen Category Reaction Reaction Severity Criticality Documentation Date Start Date Code Code System Note Provider Name and Address Organization Details Recorded Time 22280 amoxicill in medicatio n Not available Not available Not available 08/27/2018 723 RxNorm AMAIRANI Chase, ISABEL [address] [place], [address], [place] [facility] 8 18:40:11 Medications [...] propionate 50 mcg/actuati on nasal spray,suspe nsion [place] 1 spray every day by intranasa l [...] Not Available Vitals Date Recorded Oxygen saturation Heart rate Respiratory rate Body temperature Systolic And Diastolic Provider Name and Address Organization Details Last Updated DateTime 3 100 % 84 /min 18 /min 99.1 [degF] 106/62 mm[Hg] Not Available [facility] 3 15:57:57 Date Recorded Oxygen saturation Respiratory rate Body temperature Heart rate Systolic And Diastolic Provider Name and Address Organization Details Last Updated DateTime 8 97 % 20 /min 99.1 [degF] 68 /min 140/82 mm[Hg] Not Available [facility] 8 18:47:40 Social History Question Answer Notes LastModified by Organizat ion Details LastModified Time Tobacco Smoking Status Never Smoker AMAIRANI JACOME NP [address], [place], [address], [place] [facility] 08/27/2018 18:54:45 Do You [...] Not available 18:54:00 Medical History Condition Response Diabetes Y High Cholesterol Y Pulmonary Embolism N Stroke Y Hypertension Y Hypothyroidism N Asthma Y A-fib Y Kidney Disease N Gynecological HistoryNo gynecological history recorded. Obstetrics History GPAL:G 0 P 0 0 0 0 Past Encounters Encounter ID Performer Location Encounter Start Date Encounter Closed Date Diagnosis/Indication Diagnosis SNOMED-CT Code Diagnosis ICD10 Code Diagnosis IMO Codes Diagnosis Note [id number] AMAIRANI JACOME NP [facility] [address] [place] [address] 08/27/2018 18:35:37 08/27/2018 21:40:48 Sinusitis 47743482 J32.9 Asthma [id number] J45.90 9 [id number] JENNIFER Beckwith [facility] [address] [facility] [address] 10/15/2022 15:52:20 10/15/2022 18:10:14 Viral upper respiratory tract infection 347679663 J06.9 Asthma 680272235 J45.90 9 Health Concerns Section Related Observation LastModified by Organization Detai ls LastModified Time None Recorded Concern Status LastModified by Organization Details LastModified Time None Recorded Advance Directives Directive N: Payers Insurance Date Sequence Insurance Name Policy Number Policy Lr Covered Member ID Lr Member ID Guarantor Name 10/15/2022 1 [facility] (HMO) [id number] Marlene Hernandez [id number] Marlene Hernandez 08/27/2018 1 *SELF PAY* Marlene Hernandez [id number] Marlene Hernandez 10/22/2022 1 [facility] [id number] Marlene Hernandez [id number] Marlene Hernandez 10/15/2022 1 [facility] [id number] Marlene Hernandez [id number] Marlene Hernandez Notes Date Note Type Note [...] band hx, balloon is currently deflated. TAISHA ORNELAS NP [address] [place] [address], [address], [place] [facility] 08/28/2018 13:08:05 10/15/2022 text/html 57 y/o female known to new to provider with hx of [...] has been controlled no recent flare ups. JENNIFER Beckwith [address], [place], [address], [place] [facility] 10/15/2022 17:48:03 OBGyn Episode No OBEpisode recorded.
[2025-09-04 09:35] LABS: MANUAL DIFF FLAG NO
[2025-09-04 10:12] LABS: Hematocrit 40.6 % (37.0-47.0); Hemoglobin 13.5 g/dl (12.0-16.0); Imm Gran Abs Auto 0.01 X10*3/uL (0.00-0.03); Imm Gran Pct Auto 0.2 % (0.0-0.4); Lymphocytes Absolute Auto 2.6 X10*3/uL (1.2-4.9); Mean Corpuscular HGB Conc 33.3 g/dl (31.0-35.0); Mean Corpuscular Hemoglobin 30.2 pg (27.0-33.0); Mean Corpuscular Volume 90.8 fL (80.0-98.0); NRBC Abs Auto 0.000 X10*3/uL (0.0-0.012); NRBC Pct Auto 0.0 /100WBC (0.0-0.2); Platelet Count 309 X10*3/uL (160-400); Red Blood Count 4.47 X10*6/uL (4.20-5.50); White Blood Count 5.6 X10*3/uL (4.8-10.8)
[2025-09-04 10:49] LABS: Alanine Aminotransferase 14 U/L (0-31); Albumin Level 4.3 g/dL (3.5-5.0); Alkaline Phosphatase 79 U/L (39-117); Anion Gap 11 (12-20); Aspartate Amino Transferase 15 U/L (5-31); Blood Urea Nitrogen 13 mg/dL (9-16); Calcium 9.2 mg/dL (8.4-10.2); Carbon Dioxide 24 mmol/L (22-29); Chloride 112 mmol/L (96-108); Cholesterol 171 mg/dL (<200); Estimated Glomerular Filt Rate > 60; HDL Cholesterol 59 mg/dL (>40); Potassium 4.1 mmol/L (3.3-5.1); Sodium 143 mmol/L (135-145); Total Protein 7.0 g/dL (6.5-8.0); Triglycerides 34 mg/dL (<150)
[2025-09-04 11:07] LABS: Thyroid Stimulating Hormone 1.01 uIU/mL (0.32-4.0)
== END 2025-09-04 08:52 | disposition home or self-care (01) ==
LOC: HO.LAB 08:51
PROVIDERS: PCP Internal Medicine; Visit Provider Internal Medicine
DX: Z00.01 Encounter for general adult medical examination with abnormal findings (principal); E78.00 Pure hypercholesterolemia, unspecified; M70.62 Trochanteric bursitis, left hip; I10 Essential (primary) hypertension; I48.0 Paroxysmal atrial fibrillation; Z86.73 Personal history of transient ischemic attack (TIA), and cerebral infarction without residual deficits; Z79.01 Long term (current) use of anticoagulants
CPT/HCPCS: 36415; 80053; 80061; 84443; 85025